=== PATIENT | female | born 1950 | race Caucasian/White ===

== ENCOUNTER → 2016-06-13 | Outpatient (REF) | payer MEDICARE, MEDICAID ==
[~2016-06-13] MED LIST: /HCTZ25TA PO; /IPRAINH INH; /TIOT18INH INH; ACET500C PO; ACET65TA OR; ALBU17IN INH; ALEN70TA39 PO; AMLO10TA OR; AMLO5TAB2 PO; ASPI1TAB PO; ASPI81TA83 OR; CEFT500T PO; DELTASONE PO; DOXY100C PO; DOXY75CA3 PO; DUONSOL INH; FOSA70TA PO; HYDR-727 PO; HYDR25TA6 OR; IBUP200T45 PO; IPRA2IN INH; IPRASOL4 INH; K-TA10TA2 PO; LIPI10TA OR; MICR12.5 PO; NICO21DI4 TD; No Historical Meds; PERF20NE2 IN; PRED20TA PO; SYMB16INH INH; SYMB80AE INH; TIOT18INH INH; TRAZ50TA2 PO; TRAZO50TA PO; TYLE325T5 PO; VENTAER INH; VITA100037 PO; VITA50003 PO; VITAMIN D2 PO; ZITH250T PO
[2016-06-13 12:37] LABS: ALBUMIN 3.6 GM/DL (3.2-5.2); ALKALINE PHOSPHATASE 125 U/L (45-117); ALT/SGPT 23 U/L (12-78); ANION GAP 8 MEQ/L (8-16); AST/SGOT 11 U/L (15-37); BILIRUBIN,TOTAL 0.3 MG/DL (0.2-1.0); BLOOD UREA NITROGEN 14 MG/DL (7-18); CALCIUM LEVEL 9.1 MG/DL (8.8-10.2); CARBON DIOXIDE LEVEL 33 MEQ/L (21-32); CHLORIDE LEVEL 101 MEQ/L (98-107); CREATININE FOR GFR 0.64 MG/DL (0.55-1.02); GLOMERULAR FILTRATION RATE > 60.0 (>45); GLUCOSE, FASTING 108 MG/DL (80-110); POTASSIUM SERUM 3.6 MEQ/L (3.5-5.1); SODIUM LEVEL 142 MEQ/L (136-145); TOTAL PROTEIN 6.6 GM/DL (6.4-8.2)
== END ==
LOC: M SFHCPLAZ 08:04
PROVIDERS: ATTEND Nurse Practitioner Family
DX: I10 Essential (primary) hypertension (principal); E88.81 Metabolic syndrome and other insulin resistance; E55.9 Vitamin D deficiency, unspecified

== ENCOUNTER → 2016-07-17 | Outpatient (REF) | payer MEDICARE, MEDICAID | LOC: M LAB REF 13:20 | PROVIDERS: ATTEND Internal Medicine Pulmonary Disease | DX: J34.2 Deviated nasal septum (principal) ==

== ENCOUNTER → 2016-09-14 | Outpatient (REF) | payer MEDICARE, MEDICAID ==
[~2016-09-14] MED LIST changes: +VITA1CAP40 PO; -VITA50003 PO
[2016-09-14 12:21] LABS: ALKALINE PHOSPHATASE 110 U/L (45-117); ALT/SGPT 24 U/L (12-78); ANION GAP 8 MEQ/L (8-16); AST/SGOT 9 U/L (15-37); BILIRUBIN,TOTAL 0.3 MG/DL (0.2-1.0); BLOOD UREA NITROGEN 14 MG/DL (7-18); CALCIUM LEVEL 9.5 MG/DL (8.8-10.2); CARBON DIOXIDE LEVEL 32 MEQ/L (21-32); CHLORIDE LEVEL 103 MEQ/L (98-107); CHOLESTEROL LEVEL 149 MG/DL (<200); CREATININE FOR GFR 0.63 MG/DL (0.55-1.02); GLOMERULAR FILTRATION RATE > 60.0 (>45); GLUCOSE, FASTING 106 MG/DL (80-110); POTASSIUM SERUM 3.8 MEQ/L (3.5-5.1); SODIUM LEVEL 143 MEQ/L (136-145); TRIGLYCERIDES LEVEL 139 MG/DL (<150)
[2016-09-14 12:22] LABS: ALBUMIN 3.7 GM/DL (3.2-5.2); ALBUMIN/GLOBULIN RATIO 1.19 (1.00-1.93); TOTAL PROTEIN 6.8 GM/DL (6.4-8.2)
== END ==
LOC: M SFHCPLAZ 07:53
PROVIDERS: ATTEND Nurse Practitioner Family
DX: E78.2 Mixed hyperlipidemia (principal); E88.81 Metabolic syndrome and other insulin resistance; E55.9 Vitamin D deficiency, unspecified; Z79.899 Other long term (current) drug therapy

== ENCOUNTER → 2016-10-25 | Outpatient (REF) | payer MEDICARE, MEDICAID | LOC: M SFHCPLAZ 11:19 | PROVIDERS: ATTEND Nurse Practitioner Family | DX: R35.0 Frequency of micturition (principal); M25.473 Effusion, unspecified ankle; J43.1 Panlobular emphysema | CPT/HCPCS: 81002; 87088; 87186; G0463 ==

== ENCOUNTER → 2016-11-01 | Outpatient (REF) | payer MEDICARE, MEDICAID ==
[2016-11-01 14:47] LABS: ANION GAP 11 MEQ/L (8-16); BLOOD UREA NITROGEN 12 MG/DL (7-18); CALCIUM LEVEL 9.5 MG/DL (8.8-10.2); CARBON DIOXIDE LEVEL 32 MEQ/L (21-32); CHLORIDE LEVEL 98 MEQ/L (98-107); CREATININE FOR GFR 0.67 MG/DL (0.55-1.02); GLOMERULAR FILTRATION RATE > 60.0 (>45); GLUCOSE, FASTING 82 MG/DL (80-110); POTASSIUM SERUM 3.6 MEQ/L (3.5-5.1); SODIUM LEVEL 141 MEQ/L (136-145)
== END ==
LOC: M SFHCPLAZ 11:31
PROVIDERS: ATTEND Nurse Practitioner Family
DX: M25.473 Effusion, unspecified ankle (principal); N39.0 Urinary tract infection, site not specified; J43.1 Panlobular emphysema
CPT/HCPCS: 80048; G0463

== ENCOUNTER → 2016-11-24 | Outpatient (CLI) | payer MEDICARE, MEDICAID ==
--- NOTE | 2016-11-24 10:07 | REPMRS ---
Patient History The patient states she had a clinical breast exam in 09/25 Patient is postmenopausal. Family history of colorectal cancer in mother at age 50 or over. Digital Woman Screen Mammo: November 24, 2016 - Exam #: [id number] Bilateral CC and MLO view(s) were taken. Technologist: Mckenzie Mitchell, Technologist Prior study comparison: August 24, 2015, digital woman screen mammo performed at [facility]. February 12, 2014, digital woman screen mammo performed at [facility]. December 18, 2012, digital woman screen mammo performed at [facility]. FINDINGS: There are scattered fibroglandular densities. There has been no change in the appearance of the mammogram from the prior studies. There is a mild amount of scattered fibroglandular density which is fairly symmetric. There is no interval development of dominant mass, architectural distortion, or clustered microcalcification suggestive of malignancy. ASSESSMENT: BI-RADS/ACR category 1 mammogram. Negative. Recommendation Routine screening mammogram in 1 year (for women over age 40). This mammogram was interpreted with the aid of an FDA-approved computer-aided dectection system. Electronically Signed By: Joseph Sanchez MD 11/24/16 1007
== END ==
LOC: M WHC 08:48
PROVIDERS: ATTEND Nurse Practitioner Family
DX: Z12.31 Encounter for screening mammogram for malignant neoplasm of breast (principal); Z78.0 Asymptomatic menopausal state

== ENCOUNTER → 2016-12-21 | Outpatient (REF) | payer MEDICARE, MEDICAID ==
[2016-12-21 14:19] LABS: ALBUMIN 3.7 GM/DL (3.2-5.2); ALBUMIN/GLOBULIN RATIO 1.09 (1.00-1.93); ALKALINE PHOSPHATASE 106 U/L (45-117); ALT/SGPT 25 U/L (12-78); ANION GAP 8 MEQ/L (8-16); AST/SGOT 8 U/L (15-37); BILIRUBIN,TOTAL 0.3 MG/DL (0.2-1.0); BLOOD UREA NITROGEN 14 MG/DL (7-18); CALCIUM LEVEL 10.1 MG/DL (8.8-10.2); CARBON DIOXIDE LEVEL 34 MEQ/L (21-32); CHLORIDE LEVEL 98 MEQ/L (98-107); CREATININE FOR GFR 0.64 MG/DL (0.55-1.02); GLOMERULAR FILTRATION RATE > 60.0 (>45); GLUCOSE, FASTING 95 MG/DL (80-110); POTASSIUM SERUM 3.7 MEQ/L (3.5-5.1); SODIUM LEVEL 140 MEQ/L (136-145); TOTAL PROTEIN 7.1 GM/DL (6.4-8.2)
== END ==
LOC: M SFHCPLAZ 07:57
PROVIDERS: ATTEND Nurse Practitioner Family
DX: I10 Essential (primary) hypertension (principal); E88.81 Metabolic syndrome and other insulin resistance; E55.9 Vitamin D deficiency, unspecified; Z79.82 Long term (current) use of aspirin; Z79.899 Other long term (current) drug therapy

== ENCOUNTER 2017-03-10 18:19 | Observation (INO) | payer MEDICARE, MEDICAID ==
[2017-03-10] MEDS: methylPREDNISolone INJ 125 MG/2 ML VIAL (J2930) IV ×2 (17:50)
[2017-03-10] MEDS: IPRATROPIUM 0.5MG/ALBUTEROL 2.5MG INH SOL UD 3ML (DUONEB)(J7620) NEB ×6 (17:51→18:05)
[2017-03-10 18:04] LABS: ABG BASE EXCESS 10.6 (-2.0-2.0); ABG HCO3 36.7 MEQ/L (22.0-26.0); ABG O2 SATURATION 95.1 % (95.0-99.0); ABG PARTIAL PRESSURE CO2 52.6 mmHg (35.0-45.0); ABG PARTIAL PRESSURE O2 70.7 mmHg (75.0-100.0); ABG STANDARD HCO3 34.4 MEQ/L (22.0-26.0); ABG TOTAL CO2 38.3 MEQ/L (23.0-31.0); ABG pH (ARTERIAL) 7.461 UNITS (7.350-7.450)
[2017-03-10 18:09] LABS: BASO # 0.1 10^3/uL (0.0-0.2); BASO % 0.6 % (0.0-1.0); EOS # 0.4 10^3/uL (0.0-0.50); EOS % 4.9 % (0.0-3.0); HEMATOCRIT 46.7 % (36.0-47.0); HEMOGLOBIN 15.7 g/dl (12.0-16.0); IMMATURE GRANULOCYTE % 0.2 % (0-0); LYMPH # 3.5 10^3/uL (1.5-4.5); LYMPH % 38.8 % (24.0-44.0); MEAN CORPUSCULAR HEMOGLOBIN 29.2 pg (27.0-33.0); MEAN CORPUSCULAR HGB CONC 33.6 g/dl (32.0-36.5); MEAN CORPUSCULAR VOLUME 86.8 fl (80.0-96.0); MONO % 11.5 % (0.0-5.0); PLATELET COUNT, AUTOMATED 303 10^3/uL (150-450); RED BLOOD COUNT 5.38 10^6/uL (4.00-5.40); RED CELL DISTRIBUTION WIDTH 13.2 % (11.5-14.5)
[2017-03-10 18:18] LABS: INR 0.97
[2017-03-10 18:25] LABS: ALBUMIN 3.6 GM/DL (3.2-5.2); ALBUMIN/GLOBULIN RATIO 0.84 (1.00-1.93); ALKALINE PHOSPHATASE 121 U/L (45-117); ALT/SGPT 30 U/L (12-78); ANION GAP 6 MEQ/L (8-16); AST/SGOT 15 U/L (7-37); BILIRUBIN,DIRECT < 0.1 MG/DL (0.0-0.2); BILIRUBIN,TOTAL 0.3 MG/DL (0.2-1.0); BLOOD UREA NITROGEN 8 MG/DL (7-18); CARBON DIOXIDE LEVEL 38 MEQ/L (21-32); CHLORIDE LEVEL 93 MEQ/L (98-107); CPK CREATINE PHOSPHOKINASE 183 U/L (26-192); CREATININE FOR GFR 0.72 MG/DL (0.55-1.02); GLOMERULAR FILTRATION RATE > 60.0 (>45); GLUCOSE, FASTING 124 MG/DL (80-110); POTASSIUM SERUM 2.9 MEQ/L (3.5-5.1); SODIUM LEVEL 137 MEQ/L (136-145); TOTAL PROTEIN 7.9 GM/DL (6.4-8.2); TROPONIN I < 0.02 NG/ML (< 0.10)
[2017-03-10 18:30] LABS: CK-MB VALUE MASS 1.3 NG/ML (0.0-3.6); MB/CK RELATIVE INDEX 0.71 (< OR =4); NT-PRO BNP 12 PG/ML (<125); THYROID STIMULATING HORMONE 0.854 uIU/ML (0.358-3.740)
[2017-03-10 19:25] LABS: LACTIC ACID SEPSIS PROTOCOL 2.1 MMOL/L (0.4-2.0)
[2017-03-10] MEDS: POTASSIUM CHLORIDE 10 MEQ SR TABLET PO ×4 (19:30→21:30)
[2017-03-10 20:44] LABS: ABG HCO3 29.3 MEQ/L (22.0-26.0); ABG O2 SATURATION 93.4 % (95.0-99.0); ABG PARTIAL PRESSURE CO2 41.5 mmHg (35.0-45.0); ABG PARTIAL PRESSURE O2 63.8 mmHg (75.0-100.0); ABG STANDARD HCO3 28.9 MEQ/L (22.0-26.0); ABG TOTAL CO2 30.5 MEQ/L (23.0-31.0); ABG pH (ARTERIAL) 7.466 UNITS (7.350-7.450)
[2017-03-10] MEDS ORDERED: IPRATROPIUM 0.5MG/ALBUTEROL 2.5MG INH SOL UD 3ML (DUONEB)(J7620) NEB ×2 (21:30)
[2017-03-11] MEDS: ASPIRIN 81 MG ENTERIC TAB PO ×4 (00:54→20:08)
[2017-03-11] MEDS: traZODone 50 MG TAB PO ×4 (00:54→20:08)
[2017-03-11] MEDS: DOCUSATE SODIUM 100 MG CAP PO ×4 (00:54→20:08)
[2017-03-11] MEDS ORDERED: IPRATROPIUM 0.5MG/ALBUTEROL 2.5MG INH SOL UD 3ML (DUONEB)(J7620) NEB ×2 (02:00)
[2017-03-11] MEDS: ACETAMINOPHEN TAB 650MG DOSE (2X325MG) PO ×4 (04:18→19:17)
[2017-03-11] MEDS: NS 1,000 ML IV ×6 (04:27→19:17)
[2017-03-11 06:50] LABS: HEMATOCRIT 44.4 % (36.0-47.0); HEMOGLOBIN 14.7 g/dl (12.0-16.0); MEAN CORPUSCULAR HEMOGLOBIN 28.4 pg (27.0-33.0); MEAN CORPUSCULAR HGB CONC 33.1 g/dl (32.0-36.5); MEAN CORPUSCULAR VOLUME 85.7 fl (80.0-96.0); PLATELET COUNT, AUTOMATED 293 10^3/uL (150-450); RED BLOOD COUNT 5.18 10^6/uL (4.00-5.40); RED CELL DISTRIBUTION WIDTH 13.1 % (11.5-14.5); WHITE BLOOD COUNT 3.8 10^3/uL (4.0-10.0)
[2017-03-11 07:14] LABS: ANION GAP 10 MEQ/L (8-16); BLOOD UREA NITROGEN 12 MG/DL (7-18); CALCIUM LEVEL 8.8 MG/DL (8.8-10.2); CARBON DIOXIDE LEVEL 32 MEQ/L (21-32); CHLORIDE LEVEL 97 MEQ/L (98-107); CREATININE FOR GFR 0.83 MG/DL (0.55-1.02); GLOMERULAR FILTRATION RATE > 60.0 (>45); GLUCOSE, FASTING 165 MG/DL (80-110); POTASSIUM SERUM 3.3 MEQ/L (3.5-5.1); SODIUM LEVEL 139 MEQ/L (136-145)
[2017-03-11] MEDS: ADVAIR HFA 230/21MCG INHALER INH ×4 (08:24→20:33)
[2017-03-11] MEDS: TIOTROPIUM INHALER/CAPSULE (SPIRIVA) INH ×2 (08:24)
[2017-03-11] MEDS: IPRATROPIUM 0.5MG/ALBUTEROL 2.5MG INH SOL UD 3ML (DUONEB)(J7620) NEB ×8 (08:24→20:00)
[2017-03-11 08:58] LABS: ABG BASE EXCESS 5.2 (-2.0-2.0); ABG HCO3 29.7 MEQ/L (22.0-26.0); ABG O2 SATURATION 97.6 % (95.0-99.0); ABG PARTIAL PRESSURE O2 94.2 mmHg (75.0-100.0); ABG STANDARD HCO3 29.1 MEQ/L (22.0-26.0); ABG pH (ARTERIAL) 7.457 UNITS (7.350-7.450)
[2017-03-11] MEDS ORDERED: predniSONE 20 MG TAB PO ×2 (09:00)
[2017-03-11] MEDS ORDERED: AZITHROMYCIN 250 MG TAB PO ×2 (09:00)
[2017-03-11 09:34] LABS: LACTIC ACID SEPSIS PROTOCOL 1.7 MMOL/L (0.4-2.0)
[2017-03-11] MEDS: methylPREDNISolone INJ 125 MG/2 ML VIAL (J2930) IV ×6 (10:01→20:09)
[2017-03-11] MEDS: hydroCHLOROthiazide 25 MG TAB PO ×2 (10:02)
[2017-03-11] MEDS: POTASSIUM CHLORIDE 10 MEQ SR TABLET PO ×2 (10:02)
[2017-03-11] MEDS: ATORVASTATIN 10 MG TAB PO ×2 (10:03)
[2017-03-11] MEDS: amLODIPine 5 MG TAB PO ×2 (10:03)
[2017-03-11] MEDS: ENOXAPARIN 40 MG/0.4 ML SYRINGE (J1650) SC ×2 (10:03)
[2017-03-11 20:07] LABS: POTASSIUM SERUM 3.6 MEQ/L (3.5-5.1)
[2017-03-12] MEDS: NS 1,000 ML IV ×8 (02:37→21:16)
[2017-03-12] MEDS: methylPREDNISolone INJ 125 MG/2 ML VIAL (J2930) IV ×8 (02:38→21:16)
[2017-03-12] MEDS: IPRATROPIUM 0.5MG/ALBUTEROL 2.5MG INH SOL UD 3ML (DUONEB)(J7620) NEB ×14 (04:00→21:22)
[2017-03-12 07:08] LABS: HEMATOCRIT 42.7 % (36.0-47.0); MEAN CORPUSCULAR HEMOGLOBIN 28.7 pg (27.0-33.0); MEAN CORPUSCULAR HGB CONC 32.8 g/dl (32.0-36.5); MEAN CORPUSCULAR VOLUME 87.5 fl (80.0-96.0); PLATELET COUNT, AUTOMATED 291 10^3/uL (150-450); RED BLOOD COUNT 4.88 10^6/uL (4.00-5.40); RED CELL DISTRIBUTION WIDTH 13.3 % (11.5-14.5)
[2017-03-12 07:37] LABS: ANION GAP 7 MEQ/L (8-16); BLOOD UREA NITROGEN 17 MG/DL (7-18); CALCIUM LEVEL 9.2 MG/DL (8.8-10.2); CARBON DIOXIDE LEVEL 29 MEQ/L (21-32); CHLORIDE LEVEL 107 MEQ/L (98-107); CREATININE FOR GFR 0.58 MG/DL (0.55-1.02); GLOMERULAR FILTRATION RATE > 60.0 (>45); GLUCOSE, FASTING 139 MG/DL (80-110); POTASSIUM SERUM 3.4 MEQ/L (3.5-5.1); SODIUM LEVEL 143 MEQ/L (136-145)
[2017-03-12] MEDS: hydroCHLOROthiazide 25 MG TAB PO ×2 (09:01)
[2017-03-12] MEDS: ATORVASTATIN 10 MG TAB PO ×2 (09:01)
[2017-03-12] MEDS: amLODIPine 5 MG TAB PO ×2 (09:02)
[2017-03-12] MEDS: ENOXAPARIN 40 MG/0.4 ML SYRINGE (J1650) SC ×2 (09:02)
[2017-03-12] MEDS: TIOTROPIUM INHALER/CAPSULE (SPIRIVA) INH ×2 (09:13)
[2017-03-12] MEDS: ADVAIR HFA 230/21MCG INHALER INH ×4 (09:14→21:22)
[2017-03-12] MEDS: traZODone 50 MG TAB PO ×2 (21:16)
[2017-03-12] MEDS: ASPIRIN 81 MG ENTERIC TAB PO ×2 (21:16)
[2017-03-12] MEDS: DOCUSATE SODIUM 100 MG CAP PO ×2 (21:16)
[2017-03-13] MEDS: IPRATROPIUM 0.5MG/ALBUTEROL 2.5MG INH SOL UD 3ML (DUONEB)(J7620) NEB ×8 (00:34→11:56)
[2017-03-13] MEDS: ACETAMINOPHEN TAB 650MG DOSE (2X325MG) PO ×2 (01:38)
[2017-03-13] MEDS: methylPREDNISolone INJ 125 MG/2 ML VIAL (J2930) IV ×4 (03:38→10:13)
[2017-03-13 07:45] LABS: HEMATOCRIT 40.8 % (36.0-47.0); HEMOGLOBIN 13.7 g/dl (12.0-16.0); MEAN CORPUSCULAR HGB CONC 33.6 g/dl (32.0-36.5); MEAN CORPUSCULAR VOLUME 86.4 fl (80.0-96.0); PLATELET COUNT, AUTOMATED 282 10^3/uL (150-450); RED BLOOD COUNT 4.72 10^6/uL (4.00-5.40); RED CELL DISTRIBUTION WIDTH 13.4 % (11.5-14.5); WHITE BLOOD COUNT 13.9 10^3/uL (4.0-10.0)
[2017-03-13 07:59] LABS: ANION GAP 10 MEQ/L (8-16); BLOOD UREA NITROGEN 17 MG/DL (7-18); CALCIUM LEVEL 9.2 MG/DL (8.8-10.2); CARBON DIOXIDE LEVEL 28 MEQ/L (21-32); CHLORIDE LEVEL 103 MEQ/L (98-107); CREATININE FOR GFR 0.68 MG/DL (0.55-1.02); GLOMERULAR FILTRATION RATE > 60.0 (>45); GLUCOSE, FASTING 191 MG/DL (80-110); POTASSIUM SERUM 3.1 MEQ/L (3.5-5.1); SODIUM LEVEL 141 MEQ/L (136-145)
[2017-03-13] MEDS: TIOTROPIUM INHALER/CAPSULE (SPIRIVA) INH ×2 (08:33)
[2017-03-13] MEDS: ADVAIR HFA 230/21MCG INHALER INH ×2 (08:33)
[2017-03-13] MEDS: amLODIPine 5 MG TAB PO ×2 (10:11)
[2017-03-13] MEDS: hydroCHLOROthiazide 25 MG TAB PO ×2 (10:11)
[2017-03-13] MEDS: ATORVASTATIN 10 MG TAB PO ×2 (10:12)
[2017-03-13] MEDS: POTASSIUM CHLORIDE 10 MEQ SR TABLET PO ×2 (10:12)
[2017-03-13] MEDS: ENOXAPARIN 40 MG/0.4 ML SYRINGE (J1650) SC ×2 (10:13)
[2017-03-13] MEDS: NS 1,000 ML IV ×4 (12:12→12:13)
== END 2017-03-13 14:00 | disposition home or self-care (01) ==
LOC: M MS5PR 03-11 00:48 → M ED 18:19 → M ED INP 21:48
PROVIDERS: Internal Medicine
DX: J44.1 Chronic obstructive pulmonary disease with (acute) exacerbation (principal); E87.6 Hypokalemia; B34.2 Coronavirus infection, unspecified; I10 Essential (primary) hypertension; J96.11 Chronic respiratory failure with hypoxia; E78.5 Hyperlipidemia, unspecified; K57.30 Diverticulosis of large intestine without perforation or abscess without bleeding; M81.0 Age-related osteoporosis without current pathological fracture; E88.81 Metabolic syndrome and other insulin resistance; Z87.891 Personal history of nicotine dependence; Z99.81 Dependence on supplemental oxygen; Z79.82 Long term (current) use of aspirin; Z79.899 Other long term (current) drug therapy; Z79.51 Long term (current) use of inhaled steroids
CPT/HCPCS: 96376

== ENCOUNTER → 2017-03-20 | Outpatient (REF) | payer MEDICARE, MEDICAID ==
[2017-03-20 13:40] LABS: BASO % 0.3 % (0.0-1.0); EOS # 0.3 10^3/uL (0.0-0.50); EOS % 2.2 % (0.0-3.0); HEMATOCRIT 46.5 % (36.0-47.0); HEMOGLOBIN 15.5 g/dl (12.0-16.0); IMMATURE GRANULOCYTE # 0.2 10^3/uL (0-0); IMMATURE GRANULOCYTE % 1.2 % (0-0); LYMPH # 3.5 10^3/uL (1.5-4.5); LYMPH % 24.9 % (24.0-44.0); MEAN CORPUSCULAR HEMOGLOBIN 29.2 pg (27.0-33.0); MEAN CORPUSCULAR HGB CONC 33.3 g/dl (32.0-36.5); MEAN CORPUSCULAR VOLUME 87.6 fl (80.0-96.0); MONO # 1.3 10^3/uL (0.0-0.8); MONO % 9.4 % (0.0-5.0); NEUTROPHILS # 8.8 10^3/uL (1.8-7.7); PLATELET COUNT, AUTOMATED 334 10^3/uL (150-450); RED BLOOD COUNT 5.31 10^6/uL (4.00-5.40); RED CELL DISTRIBUTION WIDTH 13.3 % (11.5-14.5); WHITE BLOOD COUNT 14.2 10^3/uL (4.0-10.0)
[2017-03-20 14:08] LABS: ANION GAP 6 MEQ/L (8-16); BLOOD UREA NITROGEN 14 MG/DL (7-18); CALCIUM LEVEL 9.7 MG/DL (8.8-10.2); CARBON DIOXIDE LEVEL 36 MEQ/L (21-32); CHLORIDE LEVEL 96 MEQ/L (98-107); CREATININE FOR GFR 0.63 MG/DL (0.55-1.02); GLOMERULAR FILTRATION RATE > 60.0 (>45); GLUCOSE, FASTING 83 MG/DL (80-110); POTASSIUM SERUM 3.7 MEQ/L (3.5-5.1); SODIUM LEVEL 138 MEQ/L (136-145)
[2017-03-20 14:13] LABS: ESTIMATED AVERAGE GLUCOSE 134 MG/DL (60-110); HEMOGLOBIN A1c 6.3 %
== END ==
LOC: M SFHCPLAZ 10:44
DX: R73.03 Prediabetes (principal); I10 Essential (primary) hypertension; J44.1 Chronic obstructive pulmonary disease with (acute) exacerbation
CPT/HCPCS: 83036

== ENCOUNTER 2017-05-04 16:00 | Inpatient (IN) | payer MEDICARE, MEDICAID ==
[2017-05-04] MEDS: IPRATROPIUM 0.5MG/ALBUTEROL 2.5MG INH SOL UD 3ML (DUONEB)(J7620) NEB ×5 (16:35→23:22)
[2017-05-04 16:38] LABS: BASO # 0.1 10^3/uL (0.0-0.2); BASO % 0.4 % (0.0-1.0); EOS % 0.2 % (0.0-3.0); HEMATOCRIT 47.6 % (36.0-47.0); HEMOGLOBIN 15.8 g/dl (12.0-16.0); IMMATURE GRANULOCYTE % 0.5 % (0-3.0); LYMPH # 1.1 10^3/uL (1.5-4.5); LYMPH % 6.5 % (24.0-44.0); MEAN CORPUSCULAR HEMOGLOBIN 29.6 pg (27.0-33.0); MEAN CORPUSCULAR HGB CONC 33.2 g/dl (32.0-36.5); MEAN CORPUSCULAR VOLUME 89.1 fl (80.0-96.0); MONO # 0.6 10^3/uL (0.0-0.8); MONO % 3.7 % (0.0-5.0); NEUTROPHILS # 14.9 10^3/uL (1.8-7.7); NEUTROPHILS % 88.7 % (36.0-66.0); PLATELET COUNT, AUTOMATED 330 10^3/uL (150-450); RED BLOOD COUNT 5.34 10^6/uL (4.00-5.40); RED CELL DISTRIBUTION WIDTH 13.2 % (11.5-14.5); WHITE BLOOD COUNT 16.7 10^3/uL (4.0-10.0)
[2017-05-04 16:39] LABS: ABG BASE EXCESS 2.4 (-2.0-2.0); ABG HCO3 28.5 MEQ/L (22.0-26.0); ABG O2 SATURATION 92.8 % (95.0-99.0); ABG PARTIAL PRESSURE CO2 48.8 mmHg (35.0-45.0); ABG PARTIAL PRESSURE O2 63.7 mmHg (75.0-100.0); ABG STANDARD HCO3 26.5 MEQ/L (22.0-26.0); ABG pH (ARTERIAL) 7.384 UNITS (7.350-7.450)
[2017-05-04 17:03] LABS: ANION GAP 9 MEQ/L (8-16); BLOOD UREA NITROGEN 11 MG/DL (7-18); CALCIUM LEVEL 9.4 MG/DL (8.8-10.2); CARBON DIOXIDE LEVEL 32 MEQ/L (21-32); CHLORIDE LEVEL 100 MEQ/L (98-107); CPK CREATINE PHOSPHOKINASE 144 U/L (26-192); CREATININE FOR GFR 0.74 MG/DL (0.55-1.30); GLOMERULAR FILTRATION RATE > 60.0 (>45); GLUCOSE, FASTING 136 MG/DL (70-100); POTASSIUM SERUM 3.8 MEQ/L (3.5-5.1); SODIUM LEVEL 141 MEQ/L (136-145); TROPONIN I 0.05 NG/ML (< 0.10)
[2017-05-04 17:08] LABS: CK-MB VALUE MASS 2.5 NG/ML (0.0-3.6); MB/CK RELATIVE INDEX 1.73 (< OR =4); NT-PRO BNP 50 PG/ML (<125); THYROID STIMULATING HORMONE 0.438 uIU/ML (0.358-3.740)
[2017-05-04 17:14] LABS: LACTIC ACID SEPSIS PROTOCOL 2.7 MMOL/L (0.4-2.0)
[2017-05-04] MEDS ORDERED: ONDANSETRON 4MG/2ML VIAL (J2405) IV (19:15)
[2017-05-04] MEDS: SYMBICORT 160/4.5MCG INHALER 6GM INH (20:35)
[2017-05-04] MEDS: ASPIRIN 81 MG ENTERIC TAB PO (20:55)
[2017-05-04] MEDS: guaiFENesin ER 600 MG TAB PO (20:55)
[2017-05-04] MEDS: DOCUSATE SODIUM 100 MG CAP PO (20:55)
[2017-05-04] MEDS: methylPREDNISolone INJ 125 MG/2 ML VIAL (J2930) IV (20:55)
[2017-05-04] MEDS: NS 500 ML IV (21:58)
[2017-05-05] MEDS: ACETAMINOPHEN TAB 650MG DOSE (2X325MG) PO (01:17)
[2017-05-05] MEDS: IPRATROPIUM 0.5MG/ALBUTEROL 2.5MG INH SOL UD 3ML (DUONEB)(J7620) NEB ×7 (02:04→23:50)
[2017-05-05 03:06] LABS: LACTIC ACID SEPSIS PROTOCOL 4.2 MMOL/L (0.4-2.0)
[2017-05-05] MEDS: NS 500 ML IV (04:15)
[2017-05-05] MEDS: methylPREDNISolone INJ 125 MG/2 ML VIAL (J2930) IV ×3 (04:15→20:22)
[2017-05-05] MEDS: LevoFLOXacin IV 500 MG in APPROPRIATE DILUENT 1 EA IV (04:15)
[2017-05-05] MEDS: NS 1,000 ML IV ×2 (04:16→12:15)
[2017-05-05 06:45] LABS: HEMATOCRIT 46.2 % (36.0-47.0); HEMOGLOBIN 15.2 g/dl (12.0-16.0); MEAN CORPUSCULAR HGB CONC 32.9 g/dl (32.0-36.5); PLATELET COUNT, AUTOMATED 339 10^3/uL (150-450); RED BLOOD COUNT 5.25 10^6/uL (4.00-5.40); RED CELL DISTRIBUTION WIDTH 13.2 % (11.5-14.5); WHITE BLOOD COUNT 9.4 10^3/uL (4.0-10.0)
[2017-05-05 07:04] LABS: ALBUMIN 3.8 GM/DL (3.2-5.2); ALBUMIN/GLOBULIN RATIO 0.88 (1.00-1.93); ALKALINE PHOSPHATASE 108 U/L (45-117); ALT/SGPT 32 U/L (12-78); ANION GAP 6 MEQ/L (8-16); AST/SGOT 18 U/L (7-37); BILIRUBIN,TOTAL 0.4 MG/DL (0.2-1.0); BLOOD UREA NITROGEN 13 MG/DL (7-18); CALCIUM LEVEL 9.2 MG/DL (8.8-10.2); CARBON DIOXIDE LEVEL 33 MEQ/L (21-32); CHLORIDE LEVEL 100 MEQ/L (98-107); CREATININE FOR GFR 0.74 MG/DL (0.55-1.30); GLOMERULAR FILTRATION RATE > 60.0 (>45); GLUCOSE, FASTING 172 MG/DL (70-100); MAGNESIUM LEVEL 2.2 MG/DL (1.8-2.4); POTASSIUM SERUM 3.5 MEQ/L (3.5-5.1); SODIUM LEVEL 139 MEQ/L (136-145); TOTAL PROTEIN 8.1 GM/DL (6.4-8.2)
[2017-05-05] MEDS: SYMBICORT 160/4.5MCG INHALER 6GM INH ×2 (07:58→21:15)
[2017-05-05] MEDS ORDERED: hydroCHLOROthiazide 25 MG TAB PO (09:00)
[2017-05-05] MEDS: guaiFENesin ER 600 MG TAB PO ×2 (09:20→20:22)
[2017-05-05] MEDS: ATORVASTATIN 10 MG TAB PO (09:20)
[2017-05-05] MEDS: ENOXAPARIN 40 MG/0.4 ML SYRINGE (J1650) SC (09:21)
[2017-05-05] MEDS: amLODIPine 5 MG TAB PO (09:23)
[2017-05-05 12:19] LABS: LACTIC ACID SEPSIS PROTOCOL 3.2 MMOL/L (0.4-2.0)
[2017-05-05] MEDS: ALBUTEROL SULFATE 2.5 MG/0.5 ML INH NEB SOLN NEB (17:45)
[2017-05-05] MEDS: ALPRAZolam 0.25 MG TAB PO (20:22)
[2017-05-05] MEDS: DOCUSATE SODIUM 100 MG CAP PO (20:22)
[2017-05-05] MEDS: ASPIRIN 81 MG ENTERIC TAB PO (20:22)
[2017-05-06] MEDS: FUROSEMIDE 40 MG/4 ML VIAL (J1940) IV (00:31)
[2017-05-06] MEDS: ACETAMINOPHEN TAB 650MG DOSE (2X325MG) PO ×3 (02:42→23:49)
[2017-05-06] MEDS: IPRATROPIUM 0.5MG/ALBUTEROL 2.5MG INH SOL UD 3ML (DUONEB)(J7620) NEB ×6 (04:00→23:22)
[2017-05-06] MEDS: methylPREDNISolone INJ 125 MG/2 ML VIAL (J2930) IV ×3 (05:18→21:33)
[2017-05-06 06:06] LABS: HEMATOCRIT 46.4 % (36.0-47.0); HEMOGLOBIN 15.2 g/dl (12.0-16.0); MEAN CORPUSCULAR HEMOGLOBIN 29.1 pg (27.0-33.0); MEAN CORPUSCULAR HGB CONC 32.8 g/dl (32.0-36.5); MEAN CORPUSCULAR VOLUME 88.9 fl (80.0-96.0); PLATELET COUNT, AUTOMATED 370 10^3/uL (150-450); RED BLOOD COUNT 5.22 10^6/uL (4.00-5.40); RED CELL DISTRIBUTION WIDTH 13.4 % (11.5-14.5); WHITE BLOOD COUNT 17.3 10^3/uL (4.0-10.0)
[2017-05-06 06:28] LABS: ALBUMIN 3.8 GM/DL (3.2-5.2); ALBUMIN/GLOBULIN RATIO 0.97 (1.00-1.93); ALKALINE PHOSPHATASE 99 U/L (45-117); ALT/SGPT 40 U/L (12-78); ANION GAP 8 MEQ/L (8-16); AST/SGOT 43 U/L (7-37); BILIRUBIN,TOTAL 0.4 MG/DL (0.2-1.0); BLOOD UREA NITROGEN 19 MG/DL (7-18); CALCIUM LEVEL 8.7 MG/DL (8.8-10.2); CARBON DIOXIDE LEVEL 32 MEQ/L (21-32); CHLORIDE LEVEL 101 MEQ/L (98-107); CREATININE FOR GFR 0.75 MG/DL (0.55-1.30); GLOMERULAR FILTRATION RATE > 60.0 (>45); GLUCOSE, FASTING 145 MG/DL (70-100); MAGNESIUM LEVEL 2.3 MG/DL (1.8-2.4); POTASSIUM SERUM 3.4 MEQ/L (3.5-5.1); SODIUM LEVEL 141 MEQ/L (136-145); TOTAL PROTEIN 7.7 GM/DL (6.4-8.2)
[2017-05-06] MEDS: SYMBICORT 160/4.5MCG INHALER 6GM INH ×2 (09:02→20:34)
[2017-05-06] MEDS: guaiFENesin ER 600 MG TAB PO ×2 (09:28→21:33)
[2017-05-06] MEDS: ATORVASTATIN 10 MG TAB PO (09:28)
[2017-05-06] MEDS: ENOXAPARIN 40 MG/0.4 ML SYRINGE (J1650) SC (09:28)
[2017-05-06] MEDS: ALPRAZolam 0.25 MG TAB PO ×2 (09:29→21:39)
[2017-05-06] MEDS: amLODIPine 5 MG TAB PO (09:31)
[2017-05-06] MEDS: POTASSIUM CHLORIDE 10 MEQ SR TABLET PO ×2 (14:03→21:34)
[2017-05-06] MEDS: ASPIRIN 81 MG ENTERIC TAB PO (21:33)
[2017-05-06] MEDS: DOCUSATE SODIUM 100 MG CAP PO (21:33)
[2017-05-07] MEDS: IPRATROPIUM 0.5MG/ALBUTEROL 2.5MG INH SOL UD 3ML (DUONEB)(J7620) NEB ×4 (02:34→21:36)
[2017-05-07] MEDS: ACETAMINOPHEN TAB 650MG DOSE (2X325MG) PO (03:46)
[2017-05-07] MEDS: methylPREDNISolone INJ 125 MG/2 ML VIAL (J2930) IV ×3 (05:54→20:06)
[2017-05-07 06:08] LABS: HEMATOCRIT 44.7 % (36.0-47.0); HEMOGLOBIN 14.5 g/dl (12.0-16.0); MEAN CORPUSCULAR HEMOGLOBIN 28.9 pg (27.0-33.0); MEAN CORPUSCULAR HGB CONC 32.4 g/dl (32.0-36.5); PLATELET COUNT, AUTOMATED 325 10^3/uL (150-450); RED BLOOD COUNT 5.02 10^6/uL (4.00-5.40); RED CELL DISTRIBUTION WIDTH 13.4 % (11.5-14.5); WHITE BLOOD COUNT 11.7 10^3/uL (4.0-10.0)
[2017-05-07 06:33] LABS: ALBUMIN 3.4 GM/DL (3.2-5.2); ALKALINE PHOSPHATASE 82 U/L (45-117); ALT/SGPT 37 U/L (12-78); ANION GAP 6 MEQ/L (8-16); AST/SGOT 24 U/L (7-37); BILIRUBIN,TOTAL 0.3 MG/DL (0.2-1.0); BLOOD UREA NITROGEN 28 MG/DL (7-18); CALCIUM LEVEL 8.6 MG/DL (8.8-10.2); CARBON DIOXIDE LEVEL 35 MEQ/L (21-32); CHLORIDE LEVEL 102 MEQ/L (98-107); CREATININE FOR GFR 0.76 MG/DL (0.55-1.30); GLOMERULAR FILTRATION RATE > 60.0 (>45); GLUCOSE, FASTING 186 MG/DL (70-100); MAGNESIUM LEVEL 2.8 MG/DL (1.8-2.4); POTASSIUM SERUM 3.6 MEQ/L (3.5-5.1); SODIUM LEVEL 143 MEQ/L (136-145); TOTAL PROTEIN 6.8 GM/DL (6.4-8.2)
[2017-05-07] MEDS: amLODIPine 5 MG TAB PO (09:14)
[2017-05-07] MEDS: ATORVASTATIN 10 MG TAB PO (09:14)
[2017-05-07] MEDS: POTASSIUM CHLORIDE 10 MEQ SR TABLET PO ×2 (09:15→20:05)
[2017-05-07] MEDS: ENOXAPARIN 40 MG/0.4 ML SYRINGE (J1650) SC (09:15)
[2017-05-07] MEDS: guaiFENesin ER 600 MG TAB PO ×2 (09:15→20:06)
[2017-05-07] MEDS: SYMBICORT 160/4.5MCG INHALER 6GM INH ×2 (09:58→21:36)
[2017-05-07] MEDS: MOM 30ML SUSPENSION UDC PO (12:32)
[2017-05-07] MEDS: DOCUSATE SODIUM 100 MG CAP PO (20:05)
[2017-05-07] MEDS: ASPIRIN 81 MG ENTERIC TAB PO (20:05)
[2017-05-07] MEDS: traZODone 50 MG TAB PO (22:08)
[2017-05-08] MEDS: IPRATROPIUM 0.5MG/ALBUTEROL 2.5MG INH SOL UD 3ML (DUONEB)(J7620) NEB ×6 (00:06→22:01)
[2017-05-08] MEDS: methylPREDNISolone INJ 125 MG/2 ML VIAL (J2930) IV (05:35)
[2017-05-08 06:50] LABS: HEMATOCRIT 43.4 % (36.0-47.0); MEAN CORPUSCULAR HGB CONC 32.3 g/dl (32.0-36.5); PLATELET COUNT, AUTOMATED 319 10^3/uL (150-450); RED BLOOD COUNT 4.82 10^6/uL (4.00-5.40); RED CELL DISTRIBUTION WIDTH 13.4 % (11.5-14.5); WHITE BLOOD COUNT 10.8 10^3/uL (4.0-10.0)
[2017-05-08 07:16] LABS: ALBUMIN 3.3 GM/DL (3.2-5.2); ALBUMIN/GLOBULIN RATIO 1.03 (1.00-1.93); ALKALINE PHOSPHATASE 77 U/L (45-117); ALT/SGPT 37 U/L (12-78); ANION GAP 7 MEQ/L (8-16); AST/SGOT 15 U/L (7-37); BILIRUBIN,TOTAL 0.3 MG/DL (0.2-1.0); BLOOD UREA NITROGEN 34 MG/DL (7-18); CALCIUM LEVEL 8.6 MG/DL (8.8-10.2); CARBON DIOXIDE LEVEL 34 MEQ/L (21-32); CHLORIDE LEVEL 102 MEQ/L (98-107); CREATININE FOR GFR 0.71 MG/DL (0.55-1.30); GLOMERULAR FILTRATION RATE > 60.0 (>45); GLUCOSE, FASTING 193 MG/DL (70-100); MAGNESIUM LEVEL 2.8 MG/DL (1.8-2.4); POTASSIUM SERUM 3.5 MEQ/L (3.5-5.1); SODIUM LEVEL 143 MEQ/L (136-145); TOTAL PROTEIN 6.5 GM/DL (6.4-8.2)
[2017-05-08] MEDS: SYMBICORT 160/4.5MCG INHALER 6GM INH ×2 (08:15→22:01)
[2017-05-08] MEDS: ATORVASTATIN 10 MG TAB PO (09:39)
[2017-05-08] MEDS: ENOXAPARIN 40 MG/0.4 ML SYRINGE (J1650) SC (09:39)
[2017-05-08] MEDS: POTASSIUM CHLORIDE 10 MEQ SR TABLET PO ×2 (09:39→21:45)
[2017-05-08] MEDS: amLODIPine 5 MG TAB PO (09:39)
[2017-05-08] MEDS: guaiFENesin ER 600 MG TAB PO ×2 (09:40→21:44)
[2017-05-08] MEDS: DOCUSATE SODIUM 100 MG CAP PO (21:44)
[2017-05-08] MEDS: ASPIRIN 81 MG ENTERIC TAB PO (21:44)
[2017-05-08] MEDS: methylPREDNISolone INJ 40 MG/1 ML VIAL (J2920) IV (21:45)
[2017-05-09] MEDS: traZODone 50 MG TAB PO (01:52)
[2017-05-09] MEDS: IPRATROPIUM 0.5MG/ALBUTEROL 2.5MG INH SOL UD 3ML (DUONEB)(J7620) NEB ×3 (04:00→08:00)
[2017-05-09 07:03] LABS: HEMATOCRIT 43.2 % (36.0-47.0); HEMOGLOBIN 13.9 g/dl (12.0-16.0); MEAN CORPUSCULAR HEMOGLOBIN 29.2 pg (27.0-33.0); MEAN CORPUSCULAR HGB CONC 32.2 g/dl (32.0-36.5); MEAN CORPUSCULAR VOLUME 90.8 fl (80.0-96.0); PLATELET COUNT, AUTOMATED 306 10^3/uL (150-450); RED BLOOD COUNT 4.76 10^6/uL (4.00-5.40); RED CELL DISTRIBUTION WIDTH 13.3 % (11.5-14.5); WHITE BLOOD COUNT 10.3 10^3/uL (4.0-10.0)
[2017-05-09 07:21] LABS: ALBUMIN 3.2 GM/DL (3.2-5.2); ALKALINE PHOSPHATASE 72 U/L (45-117); ALT/SGPT 42 U/L (12-78); ANION GAP 3 MEQ/L (8-16); AST/SGOT 16 U/L (7-37); BILIRUBIN,TOTAL 0.3 MG/DL (0.2-1.0); BLOOD UREA NITROGEN 31 MG/DL (7-18); CALCIUM LEVEL 8.6 MG/DL (8.8-10.2); CARBON DIOXIDE LEVEL 36 MEQ/L (21-32); CHLORIDE LEVEL 103 MEQ/L (98-107); CREATININE FOR GFR 0.63 MG/DL (0.55-1.30); GLOMERULAR FILTRATION RATE > 60.0 (>45); GLUCOSE, FASTING 148 MG/DL (70-100); MAGNESIUM LEVEL 2.4 MG/DL (1.8-2.4); POTASSIUM SERUM 4.3 MEQ/L (3.5-5.1); SODIUM LEVEL 142 MEQ/L (136-145); TOTAL PROTEIN 6.1 GM/DL (6.4-8.2)
[2017-05-09] MEDS: SYMBICORT 160/4.5MCG INHALER 6GM INH (08:36)
[2017-05-09] MEDS: amLODIPine 5 MG TAB PO (09:38)
[2017-05-09] MEDS: methylPREDNISolone INJ 40 MG/1 ML VIAL (J2920) IV (09:38)
[2017-05-09] MEDS: ATORVASTATIN 10 MG TAB PO (09:39)
[2017-05-09] MEDS: POTASSIUM CHLORIDE 10 MEQ SR TABLET PO (09:39)
[2017-05-09] MEDS: guaiFENesin ER 600 MG TAB PO (09:39)
[2017-05-09] MEDS: ENOXAPARIN 40 MG/0.4 ML SYRINGE (J1650) SC (09:39)
== END 2017-05-09 11:54 | disposition home or self-care (01) | DRG 191 ==
LOC: M MSPAV 05-05 14:54 → M ED 16:00 → M ED INP 19:03
DX: J44.1 Chronic obstructive pulmonary disease with (acute) exacerbation (principal); J96.11 Chronic respiratory failure with hypoxia; I50.32 Chronic diastolic (congestive) heart failure; B97.89 Other viral agents as the cause of diseases classified elsewhere; Z79.899 Other long term (current) drug therapy; M81.0 Age-related osteoporosis without current pathological fracture; E78.5 Hyperlipidemia, unspecified; I11.0 Hypertensive heart disease with heart failure; E66.9 Obesity, unspecified; Z79.82 Long term (current) use of aspirin; Z79.52 Long term (current) use of systemic steroids; Z87.891 Personal history of nicotine dependence; K59.00 Constipation, unspecified

== ENCOUNTER → 2018-01-02 | Outpatient (REF) | payer MEDICARE, MEDICAID ==
[2018-01-02 12:00] LABS: ESTIMATED AVERAGE GLUCOSE 120 MG/DL (60-110); HEMOGLOBIN A1c 5.8 %
[2018-01-02 12:06] LABS: ALBUMIN 3.9 GM/DL (3.2-5.2); ALBUMIN/GLOBULIN RATIO 1.22 (1.00-1.93); ALKALINE PHOSPHATASE 103 U/L (45-117); ALT/SGPT 20 U/L (12-78); ANION GAP 7 MEQ/L (8-16); AST/SGOT 11 U/L (7-37); BILIRUBIN,TOTAL 0.3 MG/DL (0.2-1.0); BLOOD UREA NITROGEN 17 MG/DL (7-18); CALCIUM LEVEL 9.5 MG/DL (8.8-10.2); CARBON DIOXIDE LEVEL 30 MEQ/L (21-32); CHLORIDE LEVEL 104 MEQ/L (98-107); CREATININE FOR GFR 0.62 MG/DL (0.55-1.30); GLOMERULAR FILTRATION RATE > 60.0 (>45); GLUCOSE, FASTING 88 MG/DL (70-100); POTASSIUM SERUM 4.2 MEQ/L (3.5-5.1); SODIUM LEVEL 141 MEQ/L (136-145); TOTAL PROTEIN 7.1 GM/DL (6.4-8.2)
[2018-01-02 12:11] LABS: TOTAL 25(OH) VITAMIN D 20.5 NG/ML (30.0-100.0)
== END ==
LOC: M SFHCPLAZ 08:25
DX: I10 Essential (primary) hypertension (principal); R73.03 Prediabetes; E55.9 Vitamin D deficiency, unspecified; Z79.899 Other long term (current) drug therapy
CPT/HCPCS: 80053

== ENCOUNTER → 2018-01-09 | Outpatient (CLI) | payer MEDICARE, MEDICAID | LOC: M WHC 07:51 | DX: Z12.31 Encounter for screening mammogram for malignant neoplasm of breast (principal); Z80.0 Family history of malignant neoplasm of digestive organs | CPT/HCPCS: 77067 ==

== ENCOUNTER → 2018-04-02 | Outpatient (REF) | payer MEDICARE, MEDICAID ==
[~2018-04-02] MED LIST changes: +ADVA230A INH; +ALEN70TA57 PO; -AMLO5TAB2 PO; +AMLO5TAB6 PO; +ATOR1TAB19 PO; +AZIT-12 PO; +CEFD1CAP8 PO; +CEFD300CAP PO; +DOCQ100C5 PO; +HYDR25TAB PO; +INCR1INH INH; +IPRA0.00 INH; -IPRASOL4 INH; +PRED10TA2 PO; +TRAZ-160 PO; -VITA1CAP40 PO; +VITA50005 PO
[2018-04-02 13:34] LABS: BASO # 0.1 10^3/uL (0.0-0.2); BASO % 0.7 % (0.0-1.0); EOS # 0.3 10^3/uL (0.0-0.50); EOS % 2.6 % (0.0-3.0); HEMATOCRIT 44.6 % (36.0-47.0); HEMOGLOBIN 14.5 g/dl (12.0-15.5); LYMPH % 25.4 % (24.0-44.0); MEAN CORPUSCULAR HEMOGLOBIN 28.8 pg (27.0-33.0); MEAN CORPUSCULAR HGB CONC 32.5 g/dl (32.0-36.5); MEAN CORPUSCULAR VOLUME 88.7 fl (80.0-96.0); MONO # 0.8 10^3/uL (0.0-0.8); MONO % 6.9 % (0.0-5.0); NEUTROPHILS # 7.6 10^3/uL (1.8-7.7); NEUTROPHILS % 64.1 % (36.0-66.0); PLATELET COUNT, AUTOMATED 320 10^3/uL (150-450); RED BLOOD COUNT 5.03 10^6/uL (4.00-5.40); WHITE BLOOD COUNT 11.9 10^3/uL (4.0-10.0)
[2018-04-02 13:57] LABS: BLOOD UREA NITROGEN 12 MG/DL (7-18); C REACTIVE PROTEIN QUANTITATIV 0.63 MG/DL (0.00-0.30); CALCIUM LEVEL 8.9 MG/DL (8.8-10.2); CARBON DIOXIDE LEVEL 27 MEQ/L (21-32); CHLORIDE LEVEL 104 MEQ/L (98-107); CREATININE FOR GFR 0.52 MG/DL (0.55-1.30); GLOMERULAR FILTRATION RATE > 60.0 (>45); GLUCOSE, FASTING 87 MG/DL (70-100); POTASSIUM SERUM 3.9 MEQ/L (3.5-5.1); SODIUM LEVEL 140 MEQ/L (136-145)
[2018-04-02 14:10] LABS: ERYTHROCYTE SEDIMENTATION RATE 23 mm/hr (0-30)
== END ==
LOC: M SFHCPLAZ 12:04
PROVIDERS: ATTEND Nurse Practitioner Family
DX: M71.121 Other infective bursitis, right elbow (principal); J44.9 Chronic obstructive pulmonary disease, unspecified
CPT/HCPCS: 36415; 80048; 85025; 85652; 86140; G0463

== ENCOUNTER → 2018-04-30 | Outpatient (CLI) | payer MEDICARE, MEDICAID ==
--- NOTE | 2018-04-30 15:13 | REP ---
Chest two views HISTORY: Emphysema Comparison: 06/11/2017 The lungs are hyperinflated. An increase in interstitial markings is present in the lungs consistent with chronic interstitial fibrosis. The heart is normal in size. The pulmonary vasculature is normal in appearance. The bony structure is intact. IMPRESSION: Chronic interstitial fibrosis. Electronically Signed by Janes Benites MD 04/30/2018 03:05 P
== END ==
LOC: M SMT 14:22
PROVIDERS: ATTEND Internal Medicine Pulmonary Disease
DX: J43.2 Centrilobular emphysema (principal); J84.10 Pulmonary fibrosis, unspecified

== ENCOUNTER 2018-06-05 19:47 | Inpatient (IN) | payer MEDICARE, MEDICAID ==
[~2018-06-05] VITALS: Ht 154.9 cm; Wt 75.4 kg
[2018-06-05] MEDS: ADVAIR HFA 230/21MCG INHALER INH SCH (20:00)
[2018-06-05] MEDS ORDERED: IPRATROPIUM 0.5MG/ALBUTEROL 2.5MG INH SOL UD 3ML (DUONEB)(J7620) NEB PRN (20:30)
[2018-06-05 20:41] LABS: ABG BASE EXCESS 2.6 (-2.0-2.0); ABG HCO3 25.3 MEQ/L (22.0-26.0); ABG O2 SATURATION 97.2 % (95.0-99.0); ABG PARTIAL PRESSURE CO2 33.2 mmHg (35.0-45.0); ABG STANDARD HCO3 26.8 MEQ/L (22.0-26.0); ABG TOTAL CO2 26.3 MEQ/L (23.0-31.0); ABG pH (ARTERIAL) 7.499 UNITS (7.350-7.450)
--- NOTE | 2018-06-05 20:42 | REP ---
Clinical: Cough and dyspnea. Comparison: 04/30/2018. Findings: Mediastinum and cardiac silhouette are stable. Lung aranda demonstrate chronic stable interstitial changes. Subtle superimposed atelectasis cannot be excluded. No focal consolidation. No effusion. No pneumothorax. Skeletal structures stable. Impression: Chronic stable changes. Cannot exclude subtle superimposed basilar atelectasis. Electronically Signed by Hiren Gama MD 06/05/2018 08:33 P
[2018-06-05 20:46] LABS: BASO # 0.1 10^3/uL (0.0-0.2); BASO % 0.9 % (0.0-1.0); EOS % 0.5 % (0.0-3.0); HEMATOCRIT 43.5 % (36.0-47.0); HEMOGLOBIN 14.2 g/dl (12.0-15.5); LYMPH # 0.9 10^3/uL (1.5-4.5); MEAN CORPUSCULAR HGB CONC 32.6 g/dl (32.0-36.5); MEAN CORPUSCULAR VOLUME 88.8 fl (80.0-96.0); MONO # 0.8 10^3/uL (0.0-0.8); MONO % 10.2 % (0.0-5.0); NEUTROPHILS # 5.8 10^3/uL (1.8-7.7); NEUTROPHILS % 75.6 % (36.0-66.0); WHITE BLOOD COUNT 7.6 10^3/uL (4.0-10.0)
[2018-06-05 21:04] LABS: BLOOD UREA NITROGEN 6 MG/DL (7-18); CALCIUM LEVEL 8.6 MG/DL (8.8-10.2); CARBON DIOXIDE LEVEL 30 MEQ/L (21-32); CHLORIDE LEVEL 101 MEQ/L (98-107); CREATININE FOR GFR 0.72 MG/DL (0.55-1.30); GLOMERULAR FILTRATION RATE > 60.0 (>39); GLUCOSE, FASTING 118 MG/DL (70-100); POTASSIUM SERUM 3.7 MEQ/L (3.5-5.1); SODIUM LEVEL 140 MEQ/L (136-145)
[2018-06-05 21:23] LABS: INFLUENZA A AMPLIFICATION POSITIVE (NEGATIVE); INFLUENZA B AMPLIFICATION NEGATIVE (NEGATIVE)
[2018-06-05] MEDS ORDERED: OSELTAMIVIR PHOSPHATE 75 MG CAP (TAMIFLU) PO ONE (22:30)
[2018-06-05] MEDS ORDERED: ACETAMINOPHEN TAB 650MG DOSE (2X325MG) PO ONE (22:30)
[2018-06-05] MEDS ORDERED: ACETAMINOPHEN TAB 650MG DOSE (2X325MG) PO PRN (22:45)
[2018-06-05] MEDS ORDERED: ALBUTEROL SULFATE 2.5 MG/0.5 ML INH NEB SOLN NEB PRN (22:45)
[2018-06-05] MEDS ORDERED: ONDANSETRON 4MG/2ML VIAL (J2405) IV PRN (22:45)
[2018-06-05] MEDS ORDERED: PROAAER10 INH (22:46)
[2018-06-05] MEDS ORDERED: LEVO500T3 PO (22:46)
[2018-06-05] MEDS ORDERED: ASPI81TAEC PO (22:46)
[2018-06-05] MEDS ORDERED: ACET-683 PO (22:46)
[2018-06-05] MEDS: traZODone 50 MG TAB PO SCH (23:23)
[2018-06-05] MEDS: DOCUSATE SODIUM 100 MG CAP PO SCH (23:23)
[2018-06-05] MEDS: ASPIRIN 81 MG ENTERIC TAB PO SCH (23:23)
[2018-06-06 00:40] VITALS: BP 131/79
[2018-06-06] MEDS: methylPREDNISolone INJ 40 MG/1 ML VIAL (J2920) IV SCH ×2 (01:02→13:06)
[2018-06-06] MEDS: IPRATROPIUM 0.5MG/ALBUTEROL 2.5MG INH SOL UD 3ML (DUONEB)(J7620) NEB SCH ×7 (04:00→23:12)
[2018-06-06] MEDS: HEPARIN SOD (PORCINE) 5000 UNITS/ML VIAL SC SCH ×3 (05:17→22:10)
[2018-06-06 06:00] VITALS: BP 137/75
[2018-06-06 06:54] LABS: HEMATOCRIT 42.1 % (36.0-47.0); MEAN CORPUSCULAR HEMOGLOBIN 29.1 pg (27.0-33.0); MEAN CORPUSCULAR HGB CONC 33.3 g/dl (32.0-36.5); MEAN CORPUSCULAR VOLUME 87.5 fl (80.0-96.0); PLATELET COUNT, AUTOMATED 314 10^3/uL (150-450); RED BLOOD COUNT 4.81 10^6/uL (4.00-5.40); WHITE BLOOD COUNT 5.3 10^3/uL (4.0-10.0)
--- NOTE | 2018-06-06 07:09 | HPE ---
DATE OF ADMISSION: 06/05/2018 CHIEF COMPLAINT: Cough and worsening dyspnea on exertion. HISTORY OF PRESENT ILLNESS: The patient is a 68-year-old female. She has significant past medical history of chronic respiratory failure secondary to chronic obstructive pulmonary disease (COPD) on 4 liters of nasal cannula oxygen at home, hypertension, hyperlipidemia, osteoporosis, and mood disorder not otherwise specified who presents in the emergency room with a few days of cough with yellowish productive sputum, worsening dyspnea at rest and on exertion, requiring the patient to turn her oxygen to 4.5 to 5 liters, body aches, headache, and rhinorrhea. She also endorses dry heaves. Denies vomiting. Denies any chest pain. The patient does admit to having a sick contact, she tells of a friend who was recently diagnosed with the flu. She denies any abdominal pain, constipation, diarrhea or urinary symptoms. PAST MEDICAL HISTORY: See history of present illness (HPI). PAST SURGICAL HISTORY: section, tonsillectomy, dilation and curettage (D and C). HOME MEDICATIONS: As per chart. - DuoNeb - amlodipine - aspirin - Lipitor - vitamin D - potassium chloride - prednisone - Advair - trazodone - alendronate weekly - Incruse Ellipta - Colace ALLERGIES: No listed drug allergies. SOCIAL HISTORY: Former smoker, quit several years ago. Denies alcohol or illicit drug use. FAMILY HISTORY: Noncontributory in this setting. Mother had diabetes and father with coronary artery disease. REVIEW OF SYSTEMS: A 12 point review of systems was completed, all of which were negative except those listed in the HPI. VITALS ON ADMISSION: T-max 100.9. Pulse 116. Respiratory rate 23. Blood pressure 156/67. Satting at 94% on 5 liters nasal cannula. PHYSICAL EXAMINATION: General: The patient is sitting up in bed. She is well nourished in mild respiratory distress. Head: Normocephalic, atraumatic. Eyes: Extraocular movements are intact. Pupils equal round and reactive to light. Neck: Supple. No jugular venous pulse (JVP). Lungs: Good air entry. No crackles. No discernible wheezing. Cardiovascular: Regular rate and rhythm. Normal S1 and S2. No murmurs, gallops or rubs. Abdomen: Soft. Nontender. Nondistended. Positive bowel sounds. No rebound or guarding. Extremities: Trace edema. No calf tenderness. Skin is intact. No rashes, lesions or breakdowns. Neurologic: She is alert and oriented times three. No focal deficits appreciated on the exam. LABS AND IMAGING: Completed in the emergency room, white count of 7, hemoglobin/hematocrit (H/H) 14/43, platelet count indiscernible as the platelet clumped. Blood gas 7.4/33/82/25/97 on 4 liters nasal cannula. Chemistries with BUN and creatinine of 6 over 0.72. Rapid flu is positive for influenza A. Chest x-ray shows chronic stable changes. ASSESSMENT AND PLAN: Sepsis secondary to influenza with chronic obstructive pulmonary disease exacerbation, acute and chronic respiratory failure. Will admit patient to medical-surgical floor. Oxygen as needed to maintain oxygen saturation between 89-94%. Solu-Medrol 40 every 12 hours. DuoNeb every 4 hours standing. Albuterol every 2 hours as needed. Tamiflu 75 twice a day for five days. The rest of her chronic medical conditions are: Hypertension. Continue amlodipine. Osteoporosis. Continue alendronate as per outpatient schedule. Mood disorder not otherwise specified. Continue trazodone. Hyperlipidemia. Continue Lipitor. Supportive deep vein thrombosis (DVT) prophylaxis. Heparin subcutaneous. Gastrointestinal (GI) prophylaxis. Not indicated. Diet: Cardiac.
[2018-06-06 07:23] LABS: BLOOD UREA NITROGEN 11 MG/DL (7-18); CALCIUM LEVEL 8.9 MG/DL (8.8-10.2); CARBON DIOXIDE LEVEL 29 MEQ/L (21-32); CHLORIDE LEVEL 100 MEQ/L (98-107); CREATININE FOR GFR 0.84 MG/DL (0.55-1.30); GLOMERULAR FILTRATION RATE > 60.0 (>39); GLUCOSE, FASTING 178 MG/DL (70-100); POTASSIUM SERUM 3.3 MEQ/L (3.5-5.1); SODIUM LEVEL 139 MEQ/L (136-145)
[2018-06-06] MEDS: TIOTROPIUM INHALER/CAPSULE (SPIRIVA) INH SCH (07:24)
[2018-06-06] MEDS: ADVAIR HFA 230/21MCG INHALER INH SCH ×2 (07:24→20:06)
[2018-06-06] MEDS ORDERED: DOCUSATE SODIUM 100 MG CAP PO SCH (09:00)
[2018-06-06] MEDS ORDERED: POTASSIUM CHLORIDE 10 MEQ SR TABLET PO ONE (09:00)
[2018-06-06 09:30] LABS: MAGNESIUM LEVEL 2.1 MG/DL (1.8-2.4)
[2018-06-06] MEDS: amLODIPine 5 MG TAB PO SCH (09:51)
[2018-06-06] MEDS: OSELTAMIVIR PHOSPHATE 30MG CAPSULE PO SCH ×2 (09:51→22:10)
[2018-06-06] MEDS: ATORVASTATIN 10 MG TAB PO SCH (09:51)
--- NOTE | 2018-06-06 10:24 | ECGEPIP ---
Stationary ECG Study [facility] - ED Test Date: 2018-06-05 Pat Name: MICHAEL STAFFORD Department: Room: [place] [address] Gender: F Account Support Analyst: DOMINIC : 1950 Requested By: EVE Del Cid Order Number: [id number] Reading MD: Sangita Javier Measurements Intervals [place] Rate: 112 P: 80 HI: 147 QRS: 43 QRSD: 81 T: 57 QT: 317 QTc: 434 Interpretive Statements SINUS TACHYCARDIA MINIMAL ST DEPRESSION ABNORMAL RHYTHM ECG BASELINE ARTIFACT LIMITS INTERPRETATION SIMILAR 06/11/17 Electronically Signed On 06-06-2018 10:24:06 EDT by Sangita Javier
[2018-06-06 14:00] VITALS: BP 121/68
--- NOTE | 2018-06-06 21:06 | IPN ---
DATE: 06/06/2018 The patient is seen and examined. Admitted overnight. Reported respirations much improved. Still has a cough and wheeze. Baseline on 4 liters of oxygen at home. VITAL SIGNS: Temperature 98.5, pulse 81, respirations 28, blood pressure 121/68, pulse oximetry 94% on 4 liters nasal cannula. LABORATORY DATA: WBC 5.8, hematocrit and hematocrit 14 and 42.1, plast 314. Chemistry: Sodium 139, potassium 3.3, chloride 100, bicarbonate 29, BUN 11, creatinine 0.84. PHYSICAL EXAMINATION: GENERAL: The patient is alert, comfortable and in no acute distress. HEENT: Normocephalic, atraumatic. PULMONARY: Bilateral expiratory wheeze. CARDIAC: Regular. S1, S2. ABDOMEN: Soft, nontender. EXTREMITIES: No edema in bilateral lower extremities. ASSESSMENT AND PLAN: This is a 68-year-old female patient with underlying medical history of chronic obstructive pulmonary disease (COPD) with chronic hypoxic respiratory failure on 4 liters of oxygen, hypertension, dyslipidemia, osteoporosis, mood disorder, admitted with acute COPD exacerbation due to influenza. 1. Acute COPD exacerbation due to influenza. Solu-Medrol and taper as tolerated. Tamiflu has been prescribed. Nebulizer treatments. Advair, Spiriva, and oxygen supplementation. 2. Hypertension. Continue aspirin, Norvasc, and monitor blood pressure. 3. Dyslipidemia. Continue statin. 4. Mood disorder. Outpatient followup. Continue current medications. 5. Deep vein thrombosis (DVT) prophylaxis. Heparin subcutaneously. DISPOSITION: Pending clinical improvement, taper steroids.
[2018-06-06 22:00] VITALS: BP 139/73
[2018-06-06] MEDS: DOCUSATE SODIUM 100 MG CAP PO SCH (22:09)
[2018-06-06] MEDS: traZODone 50 MG TAB PO SCH (22:10)
[2018-06-06] MEDS: ASPIRIN 81 MG ENTERIC TAB PO SCH (22:10)
[2018-06-07] MEDS: methylPREDNISolone INJ 40 MG/1 ML VIAL (J2920) IV SCH ×2 (00:40→12:18)
[2018-06-07] MEDS: IPRATROPIUM 0.5MG/ALBUTEROL 2.5MG INH SOL UD 3ML (DUONEB)(J7620) NEB SCH ×6 (01:57→23:24)
[2018-06-07] MEDS: HEPARIN SOD (PORCINE) 5000 UNITS/ML VIAL SC SCH ×3 (05:54→21:39)
[2018-06-07 06:00] VITALS: BP 135/73
[2018-06-07 06:09] LABS: HEMATOCRIT 43.4 % (36.0-47.0); HEMOGLOBIN 14.2 g/dl (12.0-15.5); MEAN CORPUSCULAR HEMOGLOBIN 28.7 pg (27.0-33.0); MEAN CORPUSCULAR HGB CONC 32.7 g/dl (32.0-36.5); MEAN CORPUSCULAR VOLUME 87.9 fl (80.0-96.0); PLATELET COUNT, AUTOMATED 355 10^3/uL (150-450); RED BLOOD COUNT 4.94 10^6/uL (4.00-5.40)
[2018-06-07 06:37] LABS: BLOOD UREA NITROGEN 18 MG/DL (7-18); CALCIUM LEVEL 9.6 MG/DL (8.8-10.2); CARBON DIOXIDE LEVEL 30 MEQ/L (21-32); CHLORIDE LEVEL 102 MEQ/L (98-107); CREATININE FOR GFR 0.86 MG/DL (0.55-1.30); GLOMERULAR FILTRATION RATE > 60.0 (>39); GLUCOSE, FASTING 167 MG/DL (70-100); MAGNESIUM LEVEL 2.4 MG/DL (1.8-2.4); SODIUM LEVEL 139 MEQ/L (136-145)
[2018-06-07] MEDS: ADVAIR HFA 230/21MCG INHALER INH SCH ×2 (08:06→20:24)
[2018-06-07] MEDS: TIOTROPIUM INHALER/CAPSULE (SPIRIVA) INH SCH (08:06)
[2018-06-07] MEDS: amLODIPine 5 MG TAB PO SCH (08:51)
[2018-06-07] MEDS: OSELTAMIVIR PHOSPHATE 30MG CAPSULE PO SCH ×2 (08:51→21:39)
[2018-06-07] MEDS: ATORVASTATIN 10 MG TAB PO SCH (08:51)
[2018-06-07 14:00] VITALS: BP 136/64
--- NOTE | 2018-06-07 20:03 | IPNPDOC ---
Text Note Date of Service The patient was seen on 06/07/18. NOTE The patient is seen and examined. Reported respirations much improved. Still has a cough. no wheeze Baseline on 4 liters of oxygen at home. PHYSICAL EXAMINATION: GENERAL: The patient is alert, comfortable and in no acute distress. HEENT: Normocephalic, atraumatic. PULMONARY: b/L clear. CARDIAC: Regular. S1, S2. ABDOMEN: Soft, nontender. EXTREMITIES: No edema in bilateral lower extremities. ASSESSMENT AND PLAN: This is a 68-year-old female patient with underlying medical history of chronic obstructive pulmonary disease (COPD) with chronic hypoxic respiratory failure on 4 liters of oxygen, hypertension, dyslipidemia, osteoporosis, mood disorder, admitted with acute COPD exacerbation due to influenza. 1. Acute COPD exacerbation due to influenza. Solu-Medrol and taper as tolerated. Tamiflu has been prescribed. Nebulizer treatments. Advair, Spiriva , and oxygen supplementation. 2. Hypertension. Continue aspirin, Norvasc, and monitor blood pressure. 3. Dyslipidemia. Continue statin. 4. Mood disorder. Outpatient followup. Continue current medications. 5. Deep vein thrombosis (DVT) prophylaxis. Heparin subcutaneously. DISPOSITION: Pending clinical improvement, taper steroids. dc in 24-48hr VS,Shannan, I+O VS, Myriame, I+O Laboratory Tests 06/07/18 05:38 Red Blood Count 4.94, Mean Corpuscular Volume 87.9, Mean Corpuscular Hemoglobin 28.7, Mean Corpuscular Hemoglobin Concent 32.7, Red Cell Distribution Width 12.5, Calcium Level 9.6 Vital Signs Date Time Temp Pulse Resp B/P (MAP) Pulse Ox O2 Delivery O2 Flow Rate FiO2 06/07/18 14:00 97.0 85 18 136/64 (88) 99 4.0 06/06/18 00:17 Nasal Cannula I&O- Last 24 Hours up to 6 AM 06/07/18 06:00 Intake Total 2280 ml Output Total 1925 ml Balance 355 ml HAN WHALEY MD Jun 07, 2018 20:03
[2018-06-07] MEDS: DOCUSATE SODIUM 100 MG CAP PO SCH (21:39)
[2018-06-07] MEDS: traZODone 50 MG TAB PO SCH (21:39)
[2018-06-07] MEDS: ASPIRIN 81 MG ENTERIC TAB PO SCH (21:39)
[2018-06-07 22:00] VITALS: BP 135/67
[2018-06-08] MEDS: methylPREDNISolone INJ 40 MG/1 ML VIAL (J2920) IV SCH (00:25)
[2018-06-08] MEDS: IPRATROPIUM 0.5MG/ALBUTEROL 2.5MG INH SOL UD 3ML (DUONEB)(J7620) NEB SCH ×3 (03:26→11:09)
[2018-06-08 06:00] VITALS: BP 134/67
[2018-06-08] MEDS: HEPARIN SOD (PORCINE) 5000 UNITS/ML VIAL SC SCH (06:30)
[2018-06-08 06:38] LABS: HEMATOCRIT 41.5 % (36.0-47.0); HEMOGLOBIN 13.4 g/dl (12.0-15.5); MEAN CORPUSCULAR HEMOGLOBIN 28.7 pg (27.0-33.0); MEAN CORPUSCULAR HGB CONC 32.3 g/dl (32.0-36.5); MEAN CORPUSCULAR VOLUME 88.9 fl (80.0-96.0); PLATELET COUNT, AUTOMATED 324 10^3/uL (150-450); RED BLOOD COUNT 4.67 10^6/uL (4.00-5.40); WHITE BLOOD COUNT 11.5 10^3/uL (4.0-10.0)
[2018-06-08 07:08] LABS: BLOOD UREA NITROGEN 25 MG/DL (7-18); CALCIUM LEVEL 9.4 MG/DL (8.8-10.2); CARBON DIOXIDE LEVEL 30 MEQ/L (21-32); CHLORIDE LEVEL 103 MEQ/L (98-107); CREATININE FOR GFR 0.82 MG/DL (0.55-1.30); GLOMERULAR FILTRATION RATE > 60.0 (>39); GLUCOSE, FASTING 144 MG/DL (70-100); MAGNESIUM LEVEL 2.3 MG/DL (1.8-2.4); POTASSIUM SERUM 4.1 MEQ/L (3.5-5.1); SODIUM LEVEL 140 MEQ/L (136-145)
[2018-06-08] MEDS: TIOTROPIUM INHALER/CAPSULE (SPIRIVA) INH SCH (07:23)
[2018-06-08] MEDS: ADVAIR HFA 230/21MCG INHALER INH SCH (07:23)
[2018-06-08] MEDS: OSELTAMIVIR PHOSPHATE 30MG CAPSULE PO SCH (09:22)
[2018-06-08] MEDS: ATORVASTATIN 10 MG TAB PO SCH (09:22)
[2018-06-08 09:24] VITALS: BP 130/67
[2018-06-08] MEDS: amLODIPine 5 MG TAB PO SCH (09:24)
[2018-06-08] MEDS ORDERED: OSEL30CA PO (10:01)
[2018-06-08] MEDS ORDERED: PRED10TA2 PO (10:01)
--- NOTE | 2018-06-08 16:32 | DSES ---
DATE OF ADMISSION: 06/05/2018 DATE OF DISCHARGE: 06/08/2018 PRIMARY CARE PROVIDER: Deb Thomas, nurse practitioner BRIDGE CARPENTER: Dr. Wolfe. FINAL DIAGNOSIS: 1. Acute chronic obstructive pulmonary disease exacerbation due to influenza A. 2. Hypertension. 3. Dyslipidemia. 4. Mood disorder. 5. Deconditioning. 6. Chronic hypoxic respiratory failure, on 4 liters oxygen at home. HISTORY OF PRESENT ILLNESS: This is a 68-year-old female patient with underlying medical history of chronic obstructive pulmonary disease (COPD), chronic hypoxic respiratory failure, on 4 liters oxygen via nasal cannula at home, hypertension, dyslipidemia, osteoporosis, mood disorder, who presented to the emergency room with a few days' history of cough productive of yellow phlegm, worsening respirations, requiring more oxygen, diffuse body aches, headache, rhinorrhea with dry heaves. Denies vomiting. Denies chest pain. Admits to having sick contact. Friends recently had flu. Denies any abdominal pain, constipation. HOSPITAL COURSE: The patient was found to have influenza. Started on Solu-Medrol, Tamiflu, nebulizer treatments. Patient's oxygen supplementation continued. Home medication was continued. Patient's condition gradually improved. Tapered steroids. Currently is back on baseline oxygen supplementation. Tolerating oral. Passed physical therapy. Ready to be discharged for further care as outpatient. VITAL SIGNS: Temperature 97.2, pulse 80, respirations 19, blood pressure 130/67, pulse oximetry 100% on 4 liters. LABORATORY DATA: WBC 11.5, hemoglobin and hematocrit 13.4/41.5, platelets 324. Chemistry: Sodium 140, potassium 4.1, chloride 103, bicarbonate 30, BUN 25, creatinine 0.82. PHYSICAL EXAMINATION: GENERAL: Patient comfortable in no acute distress. HEENT: Normocephalic, atraumatic. PULMONARY: Bilaterally clear. CARDIAC: Regular, S1, S2. ABDOMEN: Soft, nontender. Positive bowel sounds. EXTREMITIES: No clubbing, cyanosis, or edema. DISCHARGE MEDICATIONS: - prednisone taper, 10 mg tablet, take four tablets daily for 3 days, then three tablets daily for 3 days, then two tablets daily for 3 days, then one tablet daily for 3 days. - Tamiflu 30 mg by mouth twice a day for 3 more days - acetaminophen 1000 mg by mouth every 6 hours as needed - albuterol inhalation every 4 hours as needed - DuoNeb inhalation four times a day as needed - alendronate 70 mg by mouth weekly - Norvasc 5 mg by mouth daily - aspirin 81 mg by mouth at bedtime - Lipitor 10 mg by mouth daily - Colace 100 mg by mouth at bedtime - vitamin D 50,000 units by mouth weekly - Ellipta inhalation daily - Advair inhalation 230/21 mcg inhalation twice a day - trazodone 50 mg by mouth at bedtime DISCHARGE INSTRUCTIONS: Please see primary care provider in [address] Wolfe, solar installer technician, in 2 weeks. Return if symptoms worsen.
== END 2018-06-08 11:28 | disposition home health service (06) | DRG 191 ==
LOC: M ED 19:47 → EDBD 19:47 → M ED INP 22:31 → M MS5PR 06-06 00:40
PROVIDERS: ADMIT Internal Medicine; ATTEND Hospitalist
DX: J44.1 Chronic obstructive pulmonary disease with (acute) exacerbation (principal); J96.11 Chronic respiratory failure with hypoxia; J10.1 Influenza due to other identified influenza virus with other respiratory manifestations; E78.5 Hyperlipidemia, unspecified; I10 Essential (primary) hypertension; F39 Unspecified mood [affective] disorder; Z79.82 Long term (current) use of aspirin; Z79.899 Other long term (current) drug therapy; M81.0 Age-related osteoporosis without current pathological fracture

== ENCOUNTER 2018-07-02 06:54 | Inpatient (IN) | payer MEDICARE, MEDICAID ==
[~2018-07-02] VITALS: Ht 154.9 cm; Wt 77.7 kg
[~2018-07-02 06:54] MED LIST changes: -/HCTZ25TA PO; -/IPRAINH INH; -/TIOT18INH INH; +ACET-683 PO; -ALEN70TA57 PO; +ALEN70TA74 PO; -ASPI1TAB PO; +ASPI81TA26 PO; +ASPI81TAEC PO; +ATRO0.063 INH; +HYDR-3644 PO; +LEVO500T3 PO; +OSEL30CA PO; +PROAAER10 INH; +SPIR1CAP INH; -TRAZ-160 PO; +TRAZ-252 PO; +TRAZ1TAB6 PO; -TRAZO50TA PO
[2018-07-02] MEDS ORDERED: IPRATROPIUM 0.5MG/ALBUTEROL 2.5MG INH SOL UD 3ML (DUONEB)(J7620) NEB PRN ×2 (07:00→12:15)
[2018-07-02] MEDS ORDERED: methylPREDNISolone INJ 125 MG/2 ML VIAL (J2930) IV ONE (07:00)
[2018-07-02] MEDS ORDERED: ACETAMINOPHEN 500 MG TAB PO ONE (07:15)
[2018-07-02] MEDS: IPRATROPIUM 0.5MG/ALBUTEROL 2.5MG INH SOL UD 3ML (DUONEB)(J7620) NEB SCH ×6 (07:25→19:51)
[2018-07-02 07:38] LABS: ABG BASE EXCESS 4.2 (-2.0-2.0); ABG HCO3 28.5 MEQ/L (22.0-26.0); ABG O2 SATURATION 94.5 % (95.0-99.0); ABG PARTIAL PRESSURE CO2 41.6 mmHg (35.0-45.0); ABG STANDARD HCO3 28.1 MEQ/L (22.0-26.0); ABG TOTAL CO2 29.8 MEQ/L (23.0-31.0); ABG pH (ARTERIAL) 7.454 UNITS (7.350-7.450)
[2018-07-02] MEDS ORDERED: DOCU100C17 PO (07:50)
[2018-07-02] MEDS ORDERED: IBUP-1091 PO (07:50)
--- NOTE | 2018-07-02 08:02 | REP ---
Portable chest x-ray: Single AP view. History: Dyspnea and cough. Comparison study: June 05, 2018. Findings: EKG monitoring electrodes overlie the chest. There is mild plate-like atelectasis in the right base. Interstitial markings are somewhat prominent in the bases bilaterally and are of emphysematous changes in the upper lobes as before consistent with COPD. Heart is not enlarged. No focal infiltrate is seen. Impression: Evidence of COPD. Plate-like atelectasis right base. No acute disease. Electronically Signed by Lewis Sanchez MD 07/02/2018 07:54 A
[2018-07-02 08:11] LABS: BASO # 0.1 10^3/uL (0.0-0.2); BASO % 0.5 % (0.0-1.0); EOS # 0.2 10^3/uL (0.0-0.50); EOS % 1.7 % (0.0-3.0); HEMATOCRIT 45.2 % (36.0-47.0); HEMOGLOBIN 14.5 g/dl (12.0-15.5); LYMPH # 1.2 10^3/uL (1.5-4.5); LYMPH % 11.4 % (24.0-44.0); MEAN CORPUSCULAR HEMOGLOBIN 29.2 pg (27.0-33.0); MEAN CORPUSCULAR HGB CONC 32.1 g/dl (32.0-36.5); MEAN CORPUSCULAR VOLUME 90.9 fl (80.0-96.0); MONO # 0.6 10^3/uL (0.0-0.8); MONO % 5.6 % (0.0-5.0); NEUTROPHILS # 8.4 10^3/uL (1.8-7.7); NEUTROPHILS % 79.9 % (36.0-66.0); PLATELET COUNT, AUTOMATED 197 10^3/uL (150-450); RED BLOOD COUNT 4.97 10^6/uL (4.00-5.40); WHITE BLOOD COUNT 10.5 10^3/uL (4.0-10.0)
[2018-07-02 08:27] LABS: INR 0.97
[2018-07-02 08:40] LABS: INFLUENZA A AMPLIFICATION NEGATIVE (NEGATIVE); INFLUENZA B AMPLIFICATION NEGATIVE (NEGATIVE)
[2018-07-02 08:51] LABS: ALBUMIN 3.5 GM/DL (3.2-5.2); ALT/SGPT 32 U/L (12-78); BILIRUBIN,DIRECT 0.1 MG/DL (0.0-0.2); BILIRUBIN,TOTAL 0.5 MG/DL (0.2-1.0); BLOOD UREA NITROGEN 10 MG/DL (7-18); CALCIUM LEVEL 8.5 MG/DL (8.8-10.2); CARBON DIOXIDE LEVEL 30 MEQ/L (21-32); CHLORIDE LEVEL 104 MEQ/L (98-107); CPK CREATINE PHOSPHOKINASE 46 U/L (26-192); CREATININE FOR GFR 0.55 MG/DL (0.55-1.30); GLOMERULAR FILTRATION RATE > 60.0 (>39); GLUCOSE, FASTING 116 MG/DL (70-100); MB/CK RELATIVE INDEX 2.17 (< OR =4); NT-PRO BNP 45 PG/ML (<125); POTASSIUM SERUM 3.7 MEQ/L (3.5-5.1); SODIUM LEVEL 140 MEQ/L (136-145); THYROID STIMULATING HORMONE 0.376 uIU/ML (0.358-3.740); TOTAL PROTEIN 6.2 GM/DL (6.4-8.2); TROPONIN I < 0.02 NG/ML (< 0.10)
[2018-07-02] MEDS ORDERED: LORazepam 2 MG/ML VIAL (J2060) IV STA (08:55)
[2018-07-02] MEDS ORDERED: ISOVUE-370 76% 100ML VIAL (Q9967) As Ordered ONE (09:09)
--- NOTE | 2018-07-02 10:38 | REP ---
CT PULMONARY ANGIOGRAM: WITH IV CONTRAST. HISTORY: Shortness of breath. Rule out pulmonary embolus. COMPARISON STUDIES: Comparison study, June 11, 2017. CONTRAST DOSE: 75 mL of Isovue [address] TECHNIQUE: Helical scanning is acquired and overlapping 1.5 mm and contiguous 3 mm axial images are reformatted. In addition, maximum intensity projection and multiplanar re-formation images are generated in sagittal and coronal imaging projections. CT PULMONARY ANGIOGRAPHIC FINDINGS: There is good opacification of the pulmonary arterial tree. There is no CT evidence of pulmonary embolism. There is no evidence of aortic aneurysm or dissection. The thoracic aorta somewhat tortuous as before. No pleural or pericardial effusion is apparent. No hilar or mediastinal mass or adenopathy is observed. The lungs are hyperinflated consistent with COPD, and there are emphysematous changes in the upper lobes bilaterally as previously noted. No infiltrate is visible today. No adrenal lesion is seen. The visualized upper abdominal structures are unremarkable. No pulmonary nodule or mass lesion is visible. No bony destructive lesion. IMPRESSION: No CT evidence of pulmonary embolus. Hyperinflation COPD with emphysematous changes. Otherwise no acute disease seen. Electronically Signed by Lewis Sanchez MD 07/02/2018 08:28 P
[2018-07-02] MEDS: ACETAMINOPHEN 500 MG TAB PO PRN ×2 (11:54→18:27)
[2018-07-02] MEDS: ADVAIR HFA 230/21MCG INHALER INH SCH ×2 (12:29→21:00)
[2018-07-02] MEDS: PANTOPRAZOLE 40MG TAB (PROTONIX) PO SCH (13:18)
[2018-07-02] MEDS ORDERED: methylPREDNISolone INJ 125 MG/2 ML VIAL (J2930) IV SCH (16:00)
--- NOTE | 2018-07-02 16:09 | HPEPDOC ---
[facility] Medical History & Physical Date of Admission Jul 02, 2018 Attending Physician: CHARLES ASHRAF MD History and Physical CHIEF COMPLAINT: shortness of breath HISTORY OF PRESENT ILLNESS: Magalie Conteh is a 68-year-old woman with past medical history COPD, (GOLD classification IV, on 3L home O2), who presents with about 24 hours of shortness of breath and difficulty catching her breath. She states that yesterday morning she first noticed she was not able to walk more than about 30 feet before having to stop to catch her breath. She also had a frontal headache. She states she recently was hospitalized with influenza and was discharged from [facility] on 06/08/2018. She is unsure of whether she has had any fevers, but she does state she felt warm and had some chills last night. She denies any nausea, vomiting or diarrhea. She has been taking all of her medications as prescribed. PAST MEDICAL HISTORY: Hypertension, essential. COPD, GOLD classification IV - FEV1 = 0.74- 8, @ pulmonary. Hypoxemia. Mixed hyperlipidemia. Diverticulitis. fx. of R foot, L hand, leg (accidents). Tobacco abuse,quit. Loss of teeth due to periodontal disease. senile osteoporosis - started alendronate 2012, last DEXA 08/25. echo 06/21, limited study, PA pressure could not be determined, EF 65-70%. Metabolic syndrome. HOSPITALIZATIONS: Left Arm Pain x 4 days 01/26 - COPD exacerbation 07/02 - 07/06/11 COPD exacerbation 02/28 - 03/04/15 COPD exacerbation 03/10/17-03/13/17 COPD exacerbation associated with Rhinovirus infection 05/04/17-05/09/17 COPD exacerbation 06/11/17-06/15/17 COPD exacerbation due to influenza A 06/05/18-06/08/18 PAST SURGICAL HISTORY: C section 1970,74 tonsillectomy 1961 D&C / post cysts removed from ovary 1966 Refuses colonoscopy 01-01-15 SOCIAL HISTORY: Lives in [place] with her . Former smoker, 20 pack years. No alcohol use. No other drug use FAMILY HISTORY: noncontributory ALLERGIES: Please see below. REVIEW OF SYSTEMS: Negative other than what is stated in HPI HOME MEDICATIONS: Please see below. PHYSICAL EXAMINATION: VITAL SIGNS: See below GENERAL APPEARANCE: Laying in bed, appears uncomfortable, using accessory muscles of breathing HEENT: moist mucus membranes, EOMI, no thyromegaly CARDIOVASCULAR: RRR, no m/r/g, normal S1/S2 LUNGS: decreased breath sounds bilaterally with expiration>inspiration ABDOMEN: soft, nontender to palpation, +BS, no organomegaly or masses BACK: 3cm pedunculated soft mas protruding from skin in left upper back MUSCULOSKELETAL: moves all extremities well EXTREMITIES: no clubbing/cyanosis/edema NEUROLOGICAL: CN 2-12 intact without any focal deficits PSYCHIATRIC: normal mood/affect, AAOx3 LABORATORY DATA: See below. IMAGING: CXR: Findings: EKG monitoring electrodes overlie the chest. There is mild plate- like atelectasis in the right base. Interstitial markings are somewhat prominent in the bases bilaterally and are of emphysematous changes in the upper lobes as before consistent with COPD. Heart is not enlarged. No focal infiltrate is seen. Impression: Evidence of COPD. Plate-like atelectasis right base. No acute disease. CTA: IMPRESSION: No CT evidence of pulmonary embolus. Hyperinflation COPD with emphysematous changes. Otherwise no acute disease seen. MICROBIOLOGY: Please see below. ASSESSMENT: This is a 68 YO F with history of COPD (on 3L home o2) with over 24h shortness of breath, subjective fevers, chills in the setting of recent influenza. In the ED, she was found to have mild leukocytosis and increased oxygen requirement concerning for COPD exacerbation. She will be admitted to the medical/surgical floor for further management. PLAN: 1. Acute on chronic hypoxic respiratory failure (on 24/7 oxygen at home) concerning for COPD exacerbation: -Solumedrol 60mg Q8H -DUOnebs PRN -Protonix 40mg PO QD -Oxygen titration for saturation 88-92% -COPD diet 2. Hypertension: -Continue Norvasc 5mg daily 3. Hyperlipidemia: -Continue Atorvastatin 10mg daily 4. Mood disorder: -Continue Trazodone PPX: TEDs/Sequentials DISPO: Pending clinical improvement Vital Signs Vital Signs Date Time Temp Pulse Resp B/P (MAP) Pulse Ox O2 Delivery O2 Flow Rate FiO2 07/02/18 12:28 144/76 (98) 07/02/18 12:15 102 98 Nasal Cannula 3.0 07/02/18 07:09 99.2 Laboratory Data Labs 24H Laboratory Tests 2 07/02/18 07:25: Blood Gas Bicarbonate Standard 28.1H, Arterial Blood pH 7.454H, Arterial Blood Partial Pressure CO2 41.6, Arterial Blood Partial Pressure O2 65.0L, Arterial Blood Total CO2 29.8, Arterial Blood HCO3 28.5H, Arterial Blood Base Excess 4.2H, Arterial Blood Oxygen Saturation 94.5L 07/02/18 07:39: Immature Granulocyte % (Auto) 0.9, White Blood Count 10.5H, Red Blood Count 4.97, Hemoglobin 14.5, Hematocrit 45.2, Mean Corpuscular Volume 90.9, Mean Corpuscular Hemoglobin 29.2, Mean Corpuscular Hemoglobin Concent 32.1, Red Cell Distribution Width 14.3, Platelet Count 197, Neutrophils (%) (Auto) 79.9H, Lymphocytes (%) (Auto) 11.4L, Monocytes (%) (Auto) 5.6H, Eosinophils (%) (Auto) 1.7, Basophils (%) (Auto) 0.5, Neutrophils # (Auto) 8.4H, Lymphocytes # (Auto) 1.2L, Monocytes # (Auto) 0.6, Eosinophils # (Auto) 0.2, Basophils # (Auto) 0.1, Nucleated Red Blood Cells % (auto) 0.0, Prothrombin Time 13.0, Prothromb Time International Ratio 0.97, Lactic Acid Level 1.8, Influenza Type A (RT-PCR) NEGATIVE, Influenza Type B (RT-PCR) NEGATIVE 07/02/18 07:40: Anion Gap 6L, Glomerular Filtration Rate > 60.0, Calcium Level 8.5L, Aspartate Amino Transf (AST/SGOT) 9, Alanine Aminotransferase (ALT/SGPT) 32, Alkaline Phosphatase 75, Total Bilirubin 0.5, Direct Bilirubin 0.1, Total Creatine Kinase 46, Creatine Kinase MB 1.0, Creatine Kinase MB Relative Index 2.17, Troponin I < 0.02, XI-Dlf-J-Type Natriuretic Peptide 45, Total Protein 6.2L, Albumin 3.5, Albumin/Globulin Ratio 1.30, Thyroid Stimulating Hormone (TSH) 0.376 CBC/BMP Laboratory Tests 07/02/18 07:39 Red Blood Count 4.97, Mean Corpuscular Volume 90.9, Mean Corpuscular Hemoglobin 29.2, Mean Corpuscular Hemoglobin Concent 32.1, Red Cell Distribution Width 14.3, Neutrophils (%) (Auto) 79.9 H, Lymphocytes (%) (Auto) 11.4 L, Monocytes (%) (Auto) 5.6 H, Eosinophils (%) (Auto) 1.7, Basophils (%) (Auto) 0.5, Neutrophils # (Auto) 8.4 H, Lymphocytes # (Auto) 1.2 L, Monocytes # (Auto) 0.6, Eosinophils # (Auto) 0.2, Basophils # (Auto) 0.1 07/02/18 07:40 Microbiology Microbiology 07/02/18 Blood Culture, Received Pending 07/02/18 Blood Culture, Received Pending Home Medications Scheduled Alendronate Sodium (Alendronate Sodium) 70 Mg Tab, 70 MG PO QWEEK SATURDAYS Amlodipine Besylate (Amlodipine Besylate) 5 Mg Tab, 5 MG PO DAILY Aspirin (Aspirin EC) 81 Mg Tabec, 81 MG PO QHS Atorvastatin Calcium (Atorvastatin Calcium) 10 Mg Tab, 10 MG PO DAILY Docusate Sodium (Docusate Sodium) 100 Mg Capsule, 100 MG PO QHS Fluticasone Propion/Salmeterol (Advair Hfa 230-21 Mcg Inhaler) 1 Aer Aer, 2 PUFF INH BID Trazodone HCl (Trazodone HCl) 50 Mg Tab, 50 MG PO QHS [place]clidin[place] (Incruse Ellipta) 62.5 Mcg/Inh Inh, 1 PUFF INH DAILY Scheduled PRN Acetaminophen (Acetaminophen) 500 Mg Tab, 1,000 MG PO Q6H PRN for HEADACHE OR PAIN Albuterol Sulfate (Proair Hfa) 108 Mcg/Act Aer, 2 PUFF INH Q4H PRN for SHORTNESS OF BREATH Ibuprofen (Ibuprofen) 200 Mg Tablet, 400 MG PO Q6H PRN for HEADACHE Ipratropium/Albuterol Sulfate (Iprat-Albut 0.5-3(2.5) mg/3 ml) 1 Gee Gee, 1 GEE INH QID PRN for SHORTNESS OF BREATH Allergies Coded Allergies: No Known Allergies (Unverified , 06/05/18) GME ATTESTATION GME ATTESTATION My faculty preceptor for this patient encounter was physically present during the encounter and was fully available. All aspects of the patient interview, examination, medical decision making process, and medical care plan development were reviewed and approved by the faculty preceptor. The faculty preceptor is aware and concurs with the plan as stated in the body of this note and will attest to such by his/her cosignature. ATTENDING NOTE I, Charles Ashraf, have both independently examined this patient as well as reviewed the documentation. I have discussed in detail with the resident the findings and plan of treatment as documented in the residents documentation. I will continue to follow the patient and offer further guidance to the patients care as necessary during this hospital stay. YAZ SAWANT MD Jul 02, 2018 14:50 CHARLES ASHRAF MD Jul 02, 2018 18:21
[2018-07-02 16:25] VITALS: BP 141/88
[2018-07-02] MEDS: methylPREDNISolone INJ 125 MG/2 ML VIAL (J2930) IV SCH (17:28)
[2018-07-02] MEDS: traZODone 50 MG TAB PO SCH (20:52)
[2018-07-02] MEDS: ASPIRIN 81 MG ENTERIC TAB PO SCH (20:52)
[2018-07-02 22:00] VITALS: BP 136/63
--- NOTE | 2018-07-02 23:16 | ECGEPIP ---
Stationary ECG Study [facility] - ED Test Date: 2018-07-02 Pat Name: MICHAEL STAFFORD Department: Room: - Gender: F Brinell Tester: TC : 1950 Requested By: Sangita Javier Order Number: [id number] Reading MD: Reginald Owens Measurements Intervals [place] Rate: 95 P: 93 MO: 173 QRS: 47 QRSD: 76 T: 79 QT: 314 QTc: 396 Interpretive Statements SINUS RHYTHM NSTTW ABNORMALITIES SIMILAR TO 06/05/18 Electronically Signed On 07-02-2018 23:16:01 EDT by Reginald Owens
[2018-07-03] VITALS (7 sets, daily range): BP systolic 128–165; BP diastolic 68–97
[2018-07-03] MEDS: IPRATROPIUM 0.5MG/ALBUTEROL 2.5MG INH SOL UD 3ML (DUONEB)(J7620) NEB SCH ×6 (00:18→20:00)
[2018-07-03] MEDS: methylPREDNISolone INJ 125 MG/2 ML VIAL (J2930) IV SCH (00:32)
[2018-07-03] MEDS: ACETAMINOPHEN 500 MG TAB PO PRN ×4 (00:33→22:21)
[2018-07-03 06:04] LABS: ABG BASE EXCESS 3.2 (-2.0-2.0); ABG HCO3 27.8 MEQ/L (22.0-26.0); ABG O2 SATURATION 93.4 % (95.0-99.0); ABG PARTIAL PRESSURE CO2 42.1 mmHg (35.0-45.0); ABG STANDARD HCO3 27.2 MEQ/L (22.0-26.0); ABG TOTAL CO2 29.1 MEQ/L (23.0-31.0); ABG pH (ARTERIAL) 7.437 UNITS (7.350-7.450)
[2018-07-03 06:39] LABS: HEMATOCRIT 43.3 % (36.0-47.0); HEMOGLOBIN 13.8 g/dl (12.0-15.5); MEAN CORPUSCULAR HEMOGLOBIN 28.4 pg (27.0-33.0); MEAN CORPUSCULAR HGB CONC 31.9 g/dl (32.0-36.5); MEAN CORPUSCULAR VOLUME 89.1 fl (80.0-96.0); PLATELET COUNT, AUTOMATED 197 10^3/uL (150-450); RED BLOOD COUNT 4.86 10^6/uL (4.00-5.40); WHITE BLOOD COUNT 7.5 10^3/uL (4.0-10.0)
[2018-07-03 07:04] LABS: BLOOD UREA NITROGEN 17 MG/DL (7-18); CALCIUM LEVEL 8.8 MG/DL (8.8-10.2); CARBON DIOXIDE LEVEL 28 MEQ/L (21-32); CHLORIDE LEVEL 105 MEQ/L (98-107); CREATININE FOR GFR 0.78 MG/DL (0.55-1.30); GLOMERULAR FILTRATION RATE > 60.0 (>39); GLUCOSE, FASTING 195 MG/DL (70-100); MAGNESIUM LEVEL 2.2 MG/DL (1.8-2.4); POTASSIUM SERUM 3.6 MEQ/L (3.5-5.1); SODIUM LEVEL 140 MEQ/L (136-145)
[2018-07-03] MEDS: ADVAIR HFA 230/21MCG INHALER INH SCH ×2 (07:29→21:37)
[2018-07-03] MEDS: amLODIPine 5 MG TAB PO SCH (09:08)
[2018-07-03] MEDS: ATORVASTATIN 10 MG TAB PO SCH (09:08)
[2018-07-03] MEDS: PANTOPRAZOLE 40MG TAB (PROTONIX) PO SCH (09:08)
--- NOTE | 2018-07-03 09:43 | REP ---
LUMBAR SPINE, FIVE VIEWS: HISTORY: Back pain. There is no acute fracture or subluxation. The L2-3 through L5-S1 intervertebral discs are decreased in height consistent with disc generation. There is narrowing of the L4-5 and L5-S1 facet joints. IMPRESSION:Degenerative change as described above. Electronically Signed by Janes Benites MD 07/03/2018 09:56 A
--- NOTE | 2018-07-03 09:46 | REP ---
Chest x-ray: Two views. History: COPD exacerbation. Comparison study: July 02, 2018. Findings: The lungs are hyperinflated consistent with COPD. There is some bibasilar fibrotic changes which are less pronounced than on the recent study of 07/02/2018 suggesting some improvement in interstitial edema pattern. Heart size is borderline. There are degenerative changes in the thoracic spine. Pulmonary vasculature is not increased. Impression: No acute infiltrate. Evidence of COPD. Bibasilar interstitial markings are somewhat improved from yesterday's radiograph. Electronically Signed by Lewis Sanchez MD 07/03/2018 11:27 A
[2018-07-03] MEDS ORDERED: LORazepam 2 MG/ML VIAL (J2060) IV STA ×2 (09:56→18:06)
[2018-07-03] MEDS ORDERED: LORazepam 0.5 MG TAB PO ONE (10:00)
--- NOTE | 2018-07-03 11:19 | IPNPDOC ---
Date Seen The patient was seen on 07/03/18. Progress Note SUBJECTIVE: Patient reports that her breathing is better and back to baseline. She appears uncomfortable today sitting on the edge of the bed with sister/niece at the bedside. She states she is feeling 7/10 aching pain and discomfort in her lower back. She has no history of lower back pain. She is currently wearing a back brace which is her 's from home. She states that the stability is helping her, along with a kpad. OBJECTIVE PHYSICAL EXAMINATION: VITAL SIGNS: Please see below. GENERAL APPEARANCE: Laying in bed, appears uncomfortable, using accessory muscles of breathing HEENT: moist mucus membranes, EOMI, no thyromegaly CARDIOVASCULAR: RRR, no m/r/g, normal S1/S2 LUNGS: decreased breath sounds bilaterally with expiration>inspiration ABDOMEN: soft, nontender to palpation, +BS, no organomegaly or masses BACK: 3cm pedunculated soft mas protruding from skin in left upper back MUSCULOSKELETAL: moves all extremities well EXTREMITIES: no clubbing/cyanosis/edema NEUROLOGICAL: CN 2-12 intact without any focal deficits PSYCHIATRIC: normal mood/affect, AAOx3 LABORATORY DATA, IMAGING STUDIES, MICROBIOLOGY: Please see below. DVT prophylaxis ordered?: TEDs/Sequentials CXR: Findings: The lungs are hyperinflated consistent with COPD. There is some bibasilar fibrotic changes which are less pronounced than on the recent study of 07/02/2018 suggesting some improvement in interstitial edema pattern. Heart size is borderline. There are degenerative changes in the thoracic spine. Pulmonary vasculature is not increased. Impression: No acute infiltrate. Evidence of COPD. Bibasilar interstitial markings are somewhat improved from yesterday's radiograph. LUMBAR SPINE XR: There is no acute fracture or subluxation. The L2-3 through L5-S1 intervertebral discs are decreased in height consistent with disc generation. There is narrowing of the L4-5 and L5-S1 facet joints. IMPRESSION:Degenerative change as described above. ASSESSMENT: This is a 68 YO F with history of COPD (on 3L home o2) with over 24h shortness of breath, subjective fevers, chills in the setting of recent influenza concerning for COPD exacerbation. PLAN: 1. Acute on chronic hypoxic respiratory failure (on 24/7 oxygen at home) concerning for COPD exacerbation:: -Solumedrol decreased to 40mg Q12 -c/w Inhaled therapy as ordered -Protonix 40mg PO QD -Oxygen titration for saturation 88-92% -COPD diet 2. Hypertension: -Continue Norvasc 5mg daily 3. Hyperlipidemia: -Continue Atorvastatin 10mg daily 4. Mood disorder: -Continue Trazodone 5. Low back pain: -Lumbar XR negative for any abnormality -Tramadol for pain -continue heating pad for discomfort PPX: TEDs/Sequentials DISPO: Pending clinical improvement A-FIB/CHADSVASC A-FIB History Current/History of A-Fib/PAF?: No VS, I&O, 24H, Fishbone Vital Signs/I&O Vital Signs Date Time Temp Pulse Resp B/P (MAP) Pulse Ox O2 Delivery O2 Flow Rate FiO2 07/03/18 09:08 94 141/75 07/03/18 07:29 16 07/03/18 06:00 97.8 96 07/03/18 04:16 4.0 07/02/18 12:15 Nasal Cannula I&O- Last 24 Hours up to 6 AM 07/03/18 06:00 Intake Total 600 ml Output Total 450 ml Balance 150 ml Laboratory Data 24H LABS Laboratory Tests 2 07/03/18 05:30: Blood Gas Bicarbonate Standard 27.2H, Arterial Blood pH 7.437, Arterial Blood Partial Pressure CO2 42.1, Arterial Blood Partial Pressure O2 62.0L, Arterial Blood Total CO2 29.1, Arterial Blood HCO3 27.8H, Arterial Blood Base Excess 3.2H, Arterial Blood Oxygen Saturation 93.4L 07/03/18 06:23: Nucleated Red Blood Cells % (auto) 0.0, Anion Gap 7L, Glomerular Filtration Rate > 60.0, Blood Urea Nitrogen 17#, Creatinine 0.78, Sodium Level 140, Potassium Level 3.6, Chloride Level 105, Carbon Dioxide Level 28, Calcium Level 8.8, Magnesium Level 2.2 CBC/BMP Laboratory Tests 07/03/18 06:23 Red Blood Count 4.86, Mean Corpuscular Volume 89.1, Mean Corpuscular Hemoglobin 28.4, Mean Corpuscular Hemoglobin Concent 31.9 L, Red Cell Distribution Width 14.1, Calcium Level 8.8 Microbiology Microbiology 07/02/18 Blood Culture - Preliminary, Resulted No growth after 24 hours . All specim... 07/02/18 Blood Culture - Preliminary, Resulted No growth after 24 hours . All specim... 07/03/18 Gram Stain, Received Pending 07/03/18 Sputum Culture, Received Pending GME ATTESTATION GME ATTESTATION My faculty preceptor for this patient encounter was physically present during the encounter and was fully available. All aspects of the patient interview, examination, medical decision making process, and medical care plan development were reviewed and approved by the faculty preceptor. The faculty preceptor is aware and concurs with the plan as stated in the body of this note and will attest to such by his/her cosignature. ATTENDING NOTE I, Charles Ashraf, have both independently examined this patient as well as reviewed the documentation. I have discussed in detail with the resident the findings and plan of treatment as documented in the residents documentation. I will continue to follow the patient and offer further guidance to the patients care as necessary during this hospital stay. YAZ SAWANT MD Jul 03, 2018 11:19 CHARLES ASHRAF MD Jul 03, 2018 18:02
[2018-07-03] MEDS: traMADol 50 MG TAB PO PRN ×2 (11:31→17:31)
[2018-07-03] MEDS: methylPREDNISolone INJ 40 MG/1 ML VIAL (J2920) IV SCH (11:31)
[2018-07-03] MEDS: KETOROLAC 30 MG/ML VIAL (J1885) IV PRN (19:55)
[2018-07-03] MEDS: ASPIRIN 81 MG ENTERIC TAB PO SCH (22:20)
[2018-07-03] MEDS: traZODone 50 MG TAB PO SCH (22:20)
[2018-07-04] MEDS: IPRATROPIUM 0.5MG/ALBUTEROL 2.5MG INH SOL UD 3ML (DUONEB)(J7620) NEB SCH ×6 (00:50→20:00)
[2018-07-04] MEDS: traMADol 50 MG TAB PO PRN ×4 (01:08→22:30)
[2018-07-04] MEDS: methylPREDNISolone INJ 40 MG/1 ML VIAL (J2920) IV SCH (01:08)
[2018-07-04 02:00] VITALS: BP 128/60
[2018-07-04 06:00] VITALS: BP 140/64
[2018-07-04 06:49] LABS: HEMATOCRIT 45.6 % (36.0-47.0); HEMOGLOBIN 14.4 g/dl (12.0-15.5); MEAN CORPUSCULAR HEMOGLOBIN 28.6 pg (27.0-33.0); MEAN CORPUSCULAR HGB CONC 31.6 g/dl (32.0-36.5); MEAN CORPUSCULAR VOLUME 90.5 fl (80.0-96.0); PLATELET COUNT, AUTOMATED 197 10^3/uL (150-450); RED BLOOD COUNT 5.04 10^6/uL (4.00-5.40); WHITE BLOOD COUNT 18.4 10^3/uL (4.0-10.0)
[2018-07-04 07:12] LABS: BLOOD UREA NITROGEN 26 MG/DL (7-18); CALCIUM LEVEL 8.8 MG/DL (8.8-10.2); CARBON DIOXIDE LEVEL 33 MEQ/L (21-32); CHLORIDE LEVEL 104 MEQ/L (98-107); CREATININE FOR GFR 0.63 MG/DL (0.55-1.30); GLOMERULAR FILTRATION RATE > 60.0 (>39); GLUCOSE, FASTING 173 MG/DL (70-100); MAGNESIUM LEVEL 2.4 MG/DL (1.8-2.4); POTASSIUM SERUM 3.7 MEQ/L (3.5-5.1); SODIUM LEVEL 140 MEQ/L (136-145)
[2018-07-04] MEDS ORDERED: ISOVUE-370 76% 100ML VIAL (Q9967) As Ordered ONE (08:07)
[2018-07-04] MEDS: ADVAIR HFA 230/21MCG INHALER INH SCH ×2 (08:24→20:55)
[2018-07-04] MEDS: GASTROGRAFIN SOLUTION 30ML PO SCH ×2 (08:45→09:28)
[2018-07-04 09:00] VITALS: BP 162/80
[2018-07-04] MEDS: ATORVASTATIN 10 MG TAB PO SCH (10:13)
[2018-07-04] MEDS: amLODIPine 5 MG TAB PO SCH (10:14)
[2018-07-04] MEDS: PANTOPRAZOLE 40MG TAB (PROTONIX) PO SCH (10:15)
[2018-07-04] MEDS: DOCUSATE SODIUM 100 MG CAP PO SCH (10:20)
[2018-07-04] MEDS: KETOROLAC 30 MG/ML VIAL (J1885) IV PRN ×2 (10:32→20:04)
--- NOTE | 2018-07-04 10:53 | IPNPDOC ---
Date Seen The patient was seen on 07/04/18. Progress Note INTERIM PROGRESS NOTE: I was called to the patient's room yesterday evening as she was complaining of 10/10 pain in her lower back. At that time a physical exam was negative for any abnormalities. She tells me she has no history of back pain or trauma to her back. My suspicion is, given the fact that she sleeps on a recliner at home since she cannot lay flat, she was experiencing muscular pain from the discomfort of the hospital bed. She was started on Toradol and Tramadol PRN. SUBJECTIVE: This morning the patient reported her pain is somewhat improved even though she still looks uncomfortable sitting on the edge of her bed. She complains of abdominal discomfort and gas and has not had a bowel movement since before admission. Otherwise, she reports her breathing has improved today. She continues on her home oxygen dose. OBJECTIVE PHYSICAL EXAMINATION: VITAL SIGNS: Please see below. GENERAL APPEARANCE: Sitting on edge of bed, appears uncomfortable, using accessory muscles of breathing HEENT: moist mucus membranes, EOMI, no thyromegaly CARDIOVASCULAR: RRR, no m/r/g, normal S1/S2 LUNGS: decreased breath sounds bilaterally with expiration>inspiration ABDOMEN: soft, nontender to palpation, +BS, no organomegaly or masses BACK: 3cm pedunculated soft mas protruding from skin in left upper back MUSCULOSKELETAL: moves all extremities well EXTREMITIES: no clubbing/cyanosis/edema NEUROLOGICAL: CN 2-12 intact without any focal deficits PSYCHIATRIC: normal mood/affect, AAOx3 LABORATORY DATA, IMAGING STUDIES, MICROBIOLOGY: Please see below. DVT prophylaxis ordered?: TEDs/Sequentials CXR: Findings: The lungs are hyperinflated consistent with COPD. There is some bibasilar fibrotic changes which are less pronounced than on the recent study of 07/02/2018 suggesting some improvement in interstitial edema pattern. Heart size is borderline. There are degenerative changes in the thoracic spine. Pulmonary vasculature is not increased. Impression: No acute infiltrate. Evidence of COPD. Bibasilar interstitial markings are somewhat improved from yesterday's radiograph. LUMBAR SPINE XR: There is no acute fracture or subluxation. The L2-3 through L5-S1 intervertebral discs are decreased in height consistent with disc generation. There is narrowing of the L4-5 and L5-S1 facet joints. IMPRESSION:Degenerative change as described above. ASSESSMENT: This is a 68 YO F with history of COPD (on 3L home o2) with over 24h shortness of breath, subjective fevers, chills in the setting of recent influenza concerning for COPD exacerbation. PLAN: 1. Acute on chronic hypoxic respiratory failure (on 24/7 oxygen at home) concerning for COPD exacerbation: -Solumedrol changed to Prednisone 40mg PO daily -c/w Inhaled therapy as ordered -Protonix 40mg PO QD -Oxygen titration for saturation 88-92%; continue with supplemental oxygen at home level of 3-4 L -COPD diet 2. Lower back pain: most likely muscular in nature -lumbar XR negative -PRN Tramadol/Toradol regimen 3. Abdominal discomfort: -CT abd with oral contrast today -Docusate for BM 4. Hypertension: -Continue Norvasc 5mg daily 5. Hyperlipidemia: -Continue Atorvastatin 10mg daily 6. Mood disorder: -Continue Trazodone PPX: TEDs/Sequentials DISPO: Pending clinical improvement VS, I&O, 24H, Fishbone Vital Signs/I&O Vital Signs Date Time Temp Pulse Resp B/P (MAP) Pulse Ox O2 Delivery O2 Flow Rate FiO2 07/04/18 10:14 84 162/80 07/04/18 09:28 16 07/04/18 08:00 3.0 07/04/18 06:00 96.8 92 07/04/18 02:00 35 07/02/18 12:15 Nasal Cannula I&O- Last 24 Hours up to 6 AM 07/04/18 06:00 Intake Total 120 ml Output Total 875 ml Balance -755 ml Laboratory Data 24H LABS Laboratory Tests 2 07/04/18 06:34: Nucleated Red Blood Cells % (auto) 0.0, Anion Gap 3L, Glomerular Filtration Rate > 60.0, Blood Urea Nitrogen 26#H, Creatinine 0.63, Sodium Level 140, Potassium Level 3.7, Chloride Level 104, Carbon Dioxide Level 33H, Calcium Level 8.8, Magnesium Level 2.4 CBC/BMP Laboratory Tests 07/04/18 06:34 Red Blood Count 5.04, Mean Corpuscular Volume 90.5, Mean Corpuscular Hemoglobin 28.6, Mean Corpuscular Hemoglobin Concent 31.6 L, Red Cell Distribution Width 14.5, Calcium Level 8.8 Microbiology Microbiology 07/02/18 Blood Culture - Preliminary, Resulted No Growth after 48 hours. All Specime... 07/02/18 Blood Culture - Preliminary, Resulted No Growth after 48 hours. All Specime... 07/03/18 Gram Stain - Final, Complete 07/03/18 Sputum Culture - Final, Complete GME ATTESTATION GME ATTESTATION My faculty preceptor for this patient encounter was physically present during the encounter and was fully available. All aspects of the patient interview, examination, medical decision making process, and medical care plan development were reviewed and approved by the faculty preceptor. The faculty preceptor is aware and concurs with the plan as stated in the body of this note and will attest to such by his/her cosignature. ATTENDING NOTE I, Charles Ashraf, have both independently examined this patient as well as reviewed the documentation. I have discussed in detail with the resident the findings and plan of treatment as documented in the residents documentation. I will continue to follow the patient and offer further guidance to the patients care as necessary during this hospital stay. YAZ SAWANT MD Jul 04, 2018 10:52 CHARLES ASHRAF MD Jul 04, 2018 13:55
--- NOTE | 2018-07-04 11:41 | REP ---
CT ABDOMEN/PELVIS WITH IV AND ORAL CONTRAST: HISTORY: Abdominal tenderness. Comparison abdominal CT study is from September 03, 2015. CT CONTRAST DOSE: 100 mL of intravenous Isovue [address] FINDINGS: Preliminary digital advanced manufacturing consultant radiograph shows gallstone in the right upper quadrant. Axial CT images demonstrate increased interstitial markings in the left lower lobe. This is new from the chest CT study of July 02, 2018 and may reflect pneumonia. Lung bases are otherwise clear. No pleural effusion or upper abdominal ascites is seen. No focal hepatic or splenic lesion is seen. A densely calcified large gallstone is visible in the gallbladder lumen. Gallstone measures 1.5 cm in greatest diameter. No pancreatic abnormalities observed. No adrenal lesion is seen on either side. The kidneys enhance symmetrically and are morphologically intact. There is an intrarenal calculus 3 mm in diameter in the lower pole of the right kidney. No hydronephrosis is seen. No retroperitoneal mass or adenopathy is seen. The aorta is normal in caliber. Small and large intestinal bowel loops are normal in the upper abdomen and pelvis. A normal appendix is observed. No uterine or ovarian abnormality is seen. Urinary bladder is unremarkable. No abdominal wall defect is observed. There is sigmoid colon diverticulosis without CT evidence of diverticulitis. IMPRESSION: Cholelithiasis. Left colonic diverticulosis without CT evidence of diverticulitis. Intrarenal nephrolithiasis right kidney without hydronephrosis. Electronically Signed by Lewis Sanchez MD 07/04/2018 12:32 P
[2018-07-04 13:48] LABS: AMORPHOUS SEDIMENT SMALL (NEGATIVE); APPEARANCE, URINE CLEAR (CLEAR); BACTERIA, URINE AUTO NEGATIVE (NEGATIVE); BILIRUBIN, URINE AUTO NEGATIVE (NEGATIVE); BLOOD, URINE BLOOD NEGATIVE (NEGATIVE); COLOR, URINE YELLOW (YELLOW); GLUCOSE, URINE (UA) AUTO NEGATIVE (NEGATIVE); KETONE, URINE AUTO NEGATIVE (NEGATIVE); LEUKOCYTE ESTERASE, URINE AUTO NEGATIVE (NEGATIVE); NITRITE, URINE AUTO NEGATIVE (NEGATIVE); PROTEIN, URINE AUTO NEGATIVE (NEGATIVE); RBC, URINE AUTO 4 /HPF (0-3); SQUAMOUS EPITHELIAL CELL UR AU 2 /HPF (0-6); UROBILINOGEN, URINE AUTO 0.2 mg/dL (0.0-2.0); WBC, URINE AUTO 3 /HPF (0-3)
[2018-07-04 14:00] VITALS: BP_SYST 164; BP_SYST 170; BP_DIAS 68; BP_DIAS 86
[2018-07-04 14:10] LABS: SPECIFIC GRAVITY URINE AUTO >1.060 (1.002-1.035)
[2018-07-04] MEDS ORDERED: predniSONE 20 MG TAB PO ONE (15:00)
[2018-07-04] MEDS: methylPREDNISolone INJ 125 MG/2 ML VIAL (J2930) IV SCH (15:03)
[2018-07-04] MEDS: LORazepam 0.5 MG TAB PO PRN (15:04)
[2018-07-04 22:00] VITALS: BP 157/78
[2018-07-04] MEDS: traZODone 50 MG TAB PO SCH (22:29)
[2018-07-04] MEDS: ASPIRIN 81 MG ENTERIC TAB PO SCH (22:29)
[2018-07-05] MEDS: IPRATROPIUM 0.5MG/ALBUTEROL 2.5MG INH SOL UD 3ML (DUONEB)(J7620) NEB SCH ×7 (00:05→23:54)
[2018-07-05] MEDS: ACETAMINOPHEN 500 MG TAB PO PRN ×2 (01:41→12:13)
[2018-07-05 02:00] VITALS: BP 175/94
[2018-07-05] MEDS: KETOROLAC 30 MG/ML VIAL (J1885) IV PRN ×2 (02:21→21:46)
[2018-07-05] MEDS: methylPREDNISolone INJ 125 MG/2 ML VIAL (J2930) IV SCH (02:21)
[2018-07-05 06:00] VITALS: BP 165/88
[2018-07-05 06:45] LABS: HEMATOCRIT 45.5 % (36.0-47.0); HEMOGLOBIN 14.9 g/dl (12.0-15.5); MEAN CORPUSCULAR HEMOGLOBIN 29.4 pg (27.0-33.0); MEAN CORPUSCULAR HGB CONC 32.7 g/dl (32.0-36.5); MEAN CORPUSCULAR VOLUME 89.7 fl (80.0-96.0); PLATELET COUNT, AUTOMATED 184 10^3/uL (150-450); RED BLOOD COUNT 5.07 10^6/uL (4.00-5.40); WHITE BLOOD COUNT 13.3 10^3/uL (4.0-10.0)
[2018-07-05 07:13] LABS: BLOOD UREA NITROGEN 23 MG/DL (7-18); CALCIUM LEVEL 8.6 MG/DL (8.8-10.2); CARBON DIOXIDE LEVEL 33 MEQ/L (21-32); CHLORIDE LEVEL 100 MEQ/L (98-107); CREATININE FOR GFR 0.62 MG/DL (0.55-1.30); GLOMERULAR FILTRATION RATE > 60.0 (>39); GLUCOSE, FASTING 162 MG/DL (70-100); MAGNESIUM LEVEL 2.7 MG/DL (1.8-2.4); POTASSIUM SERUM 3.7 MEQ/L (3.5-5.1); SODIUM LEVEL 139 MEQ/L (136-145)
[2018-07-05] MEDS: DOCUSATE SODIUM 100 MG CAP PO SCH (08:38)
[2018-07-05] MEDS: traMADol 50 MG TAB PO PRN ×2 (08:38→14:44)
[2018-07-05] MEDS: PANTOPRAZOLE 40MG TAB (PROTONIX) PO SCH (08:38)
[2018-07-05] MEDS: ATORVASTATIN 10 MG TAB PO SCH (08:39)
[2018-07-05] MEDS: amLODIPine 5 MG TAB PO SCH (08:39)
[2018-07-05] MEDS ORDERED: predniSONE 20 MG TAB PO SCH (09:00)
[2018-07-05] MEDS: ADVAIR HFA 230/21MCG INHALER INH SCH ×2 (09:00→21:00)
[2018-07-05 10:00] VITALS: BP 181/85
--- NOTE | 2018-07-05 10:39 | IPNPDOC ---
Date Seen The patient was seen on 07/05/18. Progress Note SUBJECTIVE: The patient is observed seated in her bedside chair eating breakfast this morning. She appears to be doing much better today. She states her back pain has improved and she was able to bathe and have a bowel movement yesterday. The results of her CT scan are discussed with her. She is willing to work with PT/OT today and, once she gets cleared, is ready to return home. Otherwise, her breathing is back to baseline. She has no other complaints this morning. OBJECTIVE PHYSICAL EXAMINATION: VITAL SIGNS: Please see below. GENERAL APPEARANCE: Sitting in bedside chair, appears comfortable HEENT: moist mucus membranes, EOMI, no thyromegaly CARDIOVASCULAR: RRR, no m/r/g, normal S1/S2 LUNGS: decreased breath sounds bilaterally with expiration>inspiration ABDOMEN: soft, nontender to palpation, +BS, no organomegaly or masses BACK: 3cm pedunculated soft mas protruding from skin in left upper back MUSCULOSKELETAL: moves all extremities well EXTREMITIES: no clubbing/cyanosis/edema NEUROLOGICAL: CN 2-12 intact without any focal deficits PSYCHIATRIC: normal mood/affect, AAOx3 LABORATORY DATA, IMAGING STUDIES, MICROBIOLOGY: Please see below. DVT prophylaxis ordered?: TEDs/Sequentials CXR: Findings: The lungs are hyperinflated consistent with COPD. There is some bibasilar fibrotic changes which are less pronounced than on the recent study of 07/02/2018 suggesting some improvement in interstitial edema pattern. Heart size is borderline. There are degenerative changes in the thoracic spine. Pulmonary vasculature is not increased. Impression: No acute infiltrate. Evidence of COPD. Bibasilar interstitial markings are somewhat improved from yesterday's radiograph. LUMBAR SPINE XR: There is no acute fracture or subluxation. The L2-3 through L5-S1 intervertebral discs are decreased in height consistent with disc generation. There is narrowing of the L4-5 and L5-S1 facet joints. IMPRESSION:Degenerative change as described above. ASSESSMENT: This is a 68 YO F with history of COPD (on 3L home o2) with over 24h shortness of breath, subjective fevers, chills in the setting of recent influenza concerning for COPD exacerbation. PLAN: 1. Acute on chronic hypoxic respiratory failure (on 24/7 oxygen at home) concerning for COPD exacerbation: -Prednisone 40mg daily -c/w Inhaled therapy as ordered -Protonix 40mg PO QD -Oxygen titration for saturation 88-92%; continue with supplemental oxygen at home level of 3-4 L -COPD diet 2. Lower back pain: most likely muscular in nature -lumbar XR negative -PRN Tramadol/Toradol regimen 3. Abdominal discomfort: -CT abd with oral contrast today -Docusate for BM 4. Hypertension: -Continue Norvasc 5mg daily 5. Hyperlipidemia: -Continue Atorvastatin 10mg daily 6. Mood disorder: -Continue Trazodone PPX: TEDs/Sequentials DISPO: Pending PT/OT clearance VS, I&O, 24H, Fishbone Vital Signs/I&O Vital Signs Date Time Temp Pulse Resp B/P (MAP) Pulse Ox O2 Delivery O2 Flow Rate FiO2 07/05/18 09:32 3.0 89 07/05/18 08:39 91 165/88 07/05/18 08:38 16 07/05/18 06:00 96.4 97 07/02/18 12:15 Nasal Cannula I&O- Last 24 Hours up to 6 AM 07/05/18 06:00 Intake Total 900 ml Balance 900 ml Laboratory Data 24H LABS Laboratory Tests 2 07/04/18 13:20: Urine Appearance CLEAR, Urine Color YELLOW, Urine pH 7.0, Urine Specific [place] >1.060H, Urine Protein NEGATIVE, Urine Glucose (UA) NEGATIVE, Urine Ketones NEGATIVE, Urine Urobilinogen 0.2, Urine Bilirubin NEGATIVE, Urine Leukocyte Esterase NEGATIVE, Urine Blood NEGATIVE, Urine Nitrite NEGATIVE, Urine WBC (Auto) 3, Urine RBC (Auto) 4H, Urine Hyaline Casts (Auto) 0, Urine Bacteria (A uto) NEGATIVE, Urine Squamous Epithelial Cells 2, Urine Amorphous Sediment SMALLH, Urine Sperm (Auto) 07/04/18 17:02: Bedside Glucose (Misc Panel) 182H 07/04/18 20:59: Bedside Glucose (Misc Panel) 169H 07/05/18 06:29: Nucleated Red Blood Cells % (auto) 0.0, Anion Gap 6L, Glomerular Filtration Rate > 60.0, Blood Urea Nitrogen 23H, Creatinine 0.62, Sodium Level 139, Potassium Level 3.7, Chloride Level 100, Carbon Dioxide Level 33H, Calcium Level 8.6L, Magnesium Level 2.7H CBC/BMP Laboratory Tests 07/05/18 06:29 Red Blood Count 5.07, Mean Corpuscular Volume 89.7, Mean Corpuscular Hemoglobin 29.4, Mean Corpuscular Hemoglobin Concent 32.7, Red Cell Distribution Width 14.4, Calcium Level 8.6 L Microbiology Microbiology 07/02/18 Blood Culture - Preliminary, Resulted No Growth after 72 hours. All specime... 07/02/18 Blood Culture - Preliminary, Resulted No Growth after 72 hours. All specime... 07/03/18 Gram Stain - Final, Complete 07/03/18 Sputum Culture - Final, Complete GME ATTESTATION GME ATTESTATION My faculty preceptor for this patient encounter was physically present during the encounter and was fully available. All aspects of the patient interview, examination, medical decision making process, and medical care plan development were reviewed and approved by the faculty preceptor. The faculty preceptor is aware and concurs with the plan as stated in the body of this note and will attest to such by his/her cosignature. ATTENDING NOTE I, Charles Ashraf, have both independently examined this patient as well as reviewed the documentation. I have discussed in detail with the resident the findings and plan of treatment as documented in the residents documentation. I will continue to follow the patient and offer further guidance to the patients care as necessary during this hospital stay. YAZ SAWANT MD Jul 05, 2018 10:39 CHARLES ASHRAF MD Jul 05, 2018 15:29
[2018-07-05] MEDS: predniSONE 20 MG TAB PO SCH (11:03)
[2018-07-05 14:00] VITALS: BP 183/77
[2018-07-05] MEDS ORDERED: PERCOCET 5MG/325MG TAB PO ONE (17:15)
[2018-07-05] MEDS: LORazepam 0.5 MG TAB PO PRN (18:03)
[2018-07-05] MEDS ORDERED: MORPHINE 4 MG/ML 1ML VIAL/SYRINGE (J2270) IV PRN (19:00)
[2018-07-05] MEDS ORDERED: MORPHINE 4 MG/ML 1ML VIAL/SYRINGE (J2270) IV ONE (19:00)
[2018-07-05] MEDS ORDERED: ONDANSETRON 4MG/2ML VIAL (J2405) IV ONE (20:00)
[2018-07-05] MEDS ORDERED: FENTANYL REMOVAL DOCUMENTATION MISC XX SCH (20:15)
--- NOTE | 2018-07-05 20:25 | REP ---
Chest one-view HISTORY: Shortness of breath Comparison: 07/03/2018 An increase in interstitial markings is present in the lower lobes consistent with chronic interstitial fibrosis. Patchy density is present in the right lower lobe consistent with atelectasis or infiltrate. The heart is normal in size. The pulmonary vasculature is normal in appearance. Impression: 1. Right lower lobe atelectasis or infiltrate. 2. Bibasilar chronic interstitial fibrosis. Electronically Signed by Janes Benites MD 07/05/2018 08:16 P
[2018-07-05 20:28] LABS: ABG BASE EXCESS 4.5 (-2.0-2.0); ABG HCO3 29.3 MEQ/L (22.0-26.0); ABG O2 SATURATION 89.6 % (95.0-99.0); ABG PARTIAL PRESSURE O2 55.7 mmHg (75.0-100.0); ABG STANDARD HCO3 28.2 MEQ/L (22.0-26.0); ABG TOTAL CO2 30.6 MEQ/L (23.0-31.0); ABG pH (ARTERIAL) 7.441 UNITS (7.350-7.450)
[2018-07-05] MEDS: CYCLOBENZAPRINE 5MG TABLET PO PRN (21:10)
[2018-07-05] MEDS: traZODone 50 MG TAB PO SCH (21:11)
[2018-07-05] MEDS: ASPIRIN 81 MG ENTERIC TAB PO SCH (21:11)
[2018-07-05] MEDS: METOCLOPRAMIDE INJ 10MG/2ML VIAL (J2765) IV PRN (21:13)
--- NOTE | 2018-07-05 21:38 | IPNPDOC ---
Text Note Date of Service The patient was seen on 07/05/18. NOTE NIGHT FLOAT NOTE Called ~7:30pm for respiratory concerns after pt was being transported back from imaging. Chart reviewed and examined at bedside. Per reports, she has been complaining of back pain and was due to get spinal imaging, which she did not tolerate due to pain exacerbated by laying flat. Thus, she imaging was not done and she was being transported back to floor, when nursing noted she was turning purple. On exam, noted to be in mild distress, tachypnic ~30s, in sinus tachycardic ~120, requiring increased O2 from her baseline 4L to 7L now. Otherw ise is afebrile, lungs sound distant without any adventitious sounds, pt has pursed-lip breathing but this is reportedly normal for her. RRR, no edema. Well- perfused extremities. She is noted to vomit small chunk of food and dry heaving for most of exam, but able to verbalize 1-2 words in between heavy breathing. Stat CXR at beds suggests infiltrate/haziness b/l bases, r>l. No notable effusion. ABG unremarkable and unchanged from prior. Suspicion is for acute on chronic hypoxia 2/2 aspiration [from n/v induced by morphine]. She has been placed on aspiration precautions and started on IV abx for concern of this developing into PNA, especially given her acute COPD exacerbation she is actively being treated for, baseline respiratory compromise, and infiltrate on imaging. Will f/u with labs and monitor continuous pulse ox. Reglan for n/v. Pain meds have been adjusted: Per staff, pain was well-controlled with Toradol, which has been restarted, as she has only received it for 2 days. Unable to give Fentanyl patch on this floor. Morphine d/c'ed for n/v-consider resuming at lower dose if needed. Percocet also remains an option-pt was due for 1st dose earlier today, but it fell on floor and was not taken. Updated family in waiting area [2 nieces, , granddaughter, and sister]. Pt reassessed at bedside and states her breathing is better, weaned down to 6L. Resting comfortably, NAD, no longer tachypneic. Will consider returning for spinal imaging once respiratory status improves. A-FIB/CHADSVASC A-FIB History Current/History of A-Fib/PAF?: No VS,Fishbone, I+O VS, Fishbone, I+O Laboratory Tests 07/05/18 06:29 Red Blood Count 5.07, Mean Corpuscular Volume 89.7, Mean Corpuscular Hemoglobin 29.4, Mean Corpuscular Hemoglobin Concent 32.7, Red Cell Distribution Width 14.4, Calcium Level 8.6 L Vital Signs Date Time Temp Pulse Resp B/P (MAP) Pulse Ox O2 Delivery O2 Flow Rate FiO2 07/05/18 19:04 16 07/05/18 14:00 97.1 95 183/77 (112) 87 3.0 07/05/18 09:32 89 07/02/18 12:15 Nasal Cannula I&O- Last 24 Hours up to 6 AM 07/05/18 06:00 Intake Total 900 ml Balance 900 ml GME ATTESTATION GME ATTESTATION My faculty preceptor for this patient encounter was physically present during the encounter and was fully available. All aspects of the patient interview, examination, medical decision making process, and medical care plan development were reviewed and approved by the faculty preceptor. The faculty preceptor is aware and concurs with the plan as stated in the body of this note and will attest to such by his/her cosignature. LYNDA STEPHEN DO Jul 05, 2018 21:38
[2018-07-05] MEDS: AMPICILLIN SOD/SULBACTAM SOD 1.5 GM in D5W MINI-BAG PLUS 50 ML IV SCH (21:46)
[2018-07-05 23:22] VITALS: BP 152/86
[2018-07-06 02:00] VITALS: BP 176/80
[2018-07-06] MEDS ORDERED: fentaNYL 75 MCG/HR PATCH TOP SCH (03:00)
[2018-07-06] MEDS: IPRATROPIUM 0.5MG/ALBUTEROL 2.5MG INH SOL UD 3ML (DUONEB)(J7620) NEB SCH ×6 (03:34→22:55)
[2018-07-06] MEDS: AMPICILLIN SOD/SULBACTAM SOD 1.5 GM in D5W MINI-BAG PLUS 50 ML IV SCH ×4 (03:49→21:04)
[2018-07-06] MEDS: KETOROLAC 30 MG/ML VIAL (J1885) IV PRN ×3 (03:49→23:14)
[2018-07-06] MEDS: ACETAMINOPHEN 500 MG TAB PO PRN (04:46)
[2018-07-06] MEDS: CYCLOBENZAPRINE 5MG TABLET PO PRN (04:46)
[2018-07-06 06:00] VITALS: BP 177/84
[2018-07-06 06:39] LABS: HEMOGLOBIN 15.1 g/dl (12.0-15.5); MEAN CORPUSCULAR HEMOGLOBIN 29.4 pg (27.0-33.0); MEAN CORPUSCULAR HGB CONC 32.8 g/dl (32.0-36.5); MEAN CORPUSCULAR VOLUME 89.5 fl (80.0-96.0); PLATELET COUNT, AUTOMATED 182 10^3/uL (150-450); RED BLOOD COUNT 5.14 10^6/uL (4.00-5.40); WHITE BLOOD COUNT 15.1 10^3/uL (4.0-10.0)
[2018-07-06 07:00] LABS: BLOOD UREA NITROGEN 28 MG/DL (7-18); C REACTIVE PROTEIN QUANTITATIV 2.77 MG/DL (0.00-0.30); CALCIUM LEVEL 8.4 MG/DL (8.8-10.2); CARBON DIOXIDE LEVEL 32 MEQ/L (21-32); CHLORIDE LEVEL 100 MEQ/L (98-107); CREATININE FOR GFR 0.58 MG/DL (0.55-1.30); GLOMERULAR FILTRATION RATE > 60.0 (>39); GLUCOSE, FASTING 123 MG/DL (70-100); MAGNESIUM LEVEL 2.5 MG/DL (1.8-2.4); POTASSIUM SERUM 3.5 MEQ/L (3.5-5.1); SODIUM LEVEL 137 MEQ/L (136-145)
[2018-07-06] MEDS: ADVAIR HFA 230/21MCG INHALER INH SCH ×2 (08:21→20:44)
[2018-07-06 08:51] VITALS: BP 156/73
[2018-07-06] MEDS: amLODIPine 5 MG TAB PO SCH (08:54)
[2018-07-06] MEDS: predniSONE 20 MG TAB PO SCH (08:54)
[2018-07-06] MEDS: ATORVASTATIN 10 MG TAB PO SCH (08:54)
[2018-07-06] MEDS: CYCLOBENZAPRINE 5MG TABLET PO SCH ×2 (08:54→21:04)
[2018-07-06] MEDS: PANTOPRAZOLE 40MG TAB (PROTONIX) PO SCH (08:55)
[2018-07-06] MEDS: DOCUSATE SODIUM 100 MG CAP PO SCH (08:55)
--- NOTE | 2018-07-06 09:55 | IPNPDOC ---
Date Seen The patient was seen on 07/06/18. Progress Note SUBJECTIVE: Patient had difficulty with laying flat for her CT scan yesterday. Her back had been in more pain yesterday and she was offered IV morphine, which made her nauseous. She reports she was gagging and bringing up "stomach acid" and there was concern that while she was laying flat in the scanner she may have aspirated. She now has a productive cough but is back down to her home dose of 3L O2 saturating around 94%. She reports only 2/10 pain in her lower back and she states her breathing is back to normal. She looks comfortable laying in bed this morning. She was offered to try again for a CT spine or MRI, but she refused, saying that she is very uncomfortable laying flat and does not wish to try again. OBJECTIVE PHYSICAL EXAMINATION: VITAL SIGNS: Please see below. GENERAL APPEARANCE: laying in bed, appears comfortable HEENT: moist mucus membranes, EOMI, no thyromegaly CARDIOVASCULAR: RRR, no m/r/g, normal S1/S2 LUNGS: decreased breath sounds bilaterally with expiration>inspiration, some faint rales heard in the middle and upper lobes ABDOMEN: soft, nontender to palpation, +BS, no organomegaly or masses BACK: 3cm pedunculated soft mas protruding from skin in left upper back MUSCULOSKELETAL: moves all extremities well EXTREMITIES: no clubbing/cyanosis/edema NEUROLOGICAL: CN 2-12 intact without any focal deficits PSYCHIATRIC: normal mood/affect, AAOx3 LABORATORY DATA, IMAGING STUDIES, MICROBIOLOGY: Please see below. DVT prophylaxis ordered?: TEDs/Sequentials CXR: An increase in interstitial markings is present in the lower lobes consistent with chronic interstitial fibrosis. Patchy density is present in the right lower lobe consistent with atelectasis or infiltrate. The heart is normal in size. The pulmonary vasculature is normal in appearance. Impression: 1. Right lower lobe atelectasis or infiltrate. 2. Bibasilar chronic interstitial fibrosis. ASSESSMENT: This is a 68 YO F with history of COPD (on 3L home o2) with over 24h shortness of breath, subjective fevers, chills in the setting of recent influenza concerning for COPD exacerbation. Her clinical course is complicated by lower back pain and inability to obtain more imaging 2/2 inability to lay flat and concern for aspiration. PLAN: 1. Acute on chronic hypoxic respiratory failure (on 24/7 oxygen at home) concerning for COPD exacerbation: concern for aspiration yesterday as she was to lay flat for her CT scan -CXR taken after possible aspiration concerning for infiltrate. Patient started on Unasyn for empiric coverage -ABG found to be 7.441/44/55 -Sputum culture repeated and pending -Aspiration precautions -continue Prednisone 40mg daily -c/w Inhaled therapy as ordered -Encourage use of IS -Oxygen titration for saturation 88-92%; continue with supplemental oxygen at home level of 3-4 L -COPD diet - Will trend CRP 2. Lower back pain: Patient does not wish to try again for CT scan or MRI at this time -lumbar XR negative -s/p Morphine; patient experienced nausea from this medication -Continue Toradol 15mg Q6H -Flexeril 10mg BID 3. Abdominal discomfort - possibly 2/2 constipation - Has had BM yesterday -CT abd with oral contrast demonstrated left colonic diverticulosis without diverticulitis. Small 3mm R kidney stone without hydronephrosis -Docusate for BM 4. Hypertension: -Continue Norvasc 5mg daily 5. Hyperlipidemia: -Continue Atorvastatin 10mg daily 6. Mood disorder: -Continue Trazodone 7. GI ppx: -Protonix 40mg PO QD 6. DVT prophylaxis - c/w TEDs/Sequentials - Will start Lovenox DISPO: Pending PT/OT clearance VS, I&O, 24H, Fishbone Vital Signs/I&O Vital Signs Date Time Temp Pulse Resp B/P (MAP) Pulse Ox O2 Delivery O2 Flow Rate FiO2 07/06/18 08:54 94 156/73 07/06/18 08:51 99.6 20 94 3.0 07/05/18 09:32 89 07/02/18 12:15 Nasal Cannula I&O- Last 24 Hours up to 6 AM 07/06/18 06:00 Intake Total 650 ml Output Total 450 ml Balance 200 ml Laboratory Data 24H LABS Laboratory Tests 2 07/05/18 11:46: Bedside Glucose (Misc Panel) 197H 07/05/18 17:04: Bedside Glucose (Misc Panel) 164H 07/05/18 20:22: Blood Gas Bicarbonate Standard 28.2H, Arterial Blood pH 7.441, Arterial Blood Partial Pressure CO2 44.0, Arterial Blood Partial Pressure O2 55.7L, Arterial Blood Total CO2 30.6, Arterial Blood HCO3 29.3H, Arterial Blood Base Excess 4.5H, Arterial Blood Oxygen Saturation 89.6L 07/05/18 21:35: Bedside Glucose (Misc Panel) 163H 07/06/18 06:22: Nucleated Red Blood Cells % (auto) 0.0, Anion Gap 5L, Glomerular Filtration Rate > 60.0, Blood Urea Nitrogen 28H, Creatinine 0.58, Sodium Level 137, Potassium Level 3.5, Chloride Level 100, Carbon Dioxide Level 32, Calcium Level 8.4L, Magn esium Level 2.5H, C-Reactive Protein, Quantitative 2.77H CBC/BMP Laboratory Tests 07/06/18 06:22 Red Blood Count 5.14, Mean Corpuscular Volume 89.5, Mean Corpuscular Hemoglobin 29.4, Mean Corpuscular Hemoglobin Concent 32.8, Red Cell Distribution Width 14.0, Calcium Level 8.4 L Microbiology Microbiology 07/02/18 Blood Culture - Preliminary, Resulted No Growth after 72 hours. All specime... 07/02/18 Blood Culture - Preliminary, Resulted No Growth after 72 hours. All specime... 07/03/18 Gram Stain - Final, Complete 07/03/18 Sputum Culture - Final, Complete GME ATTESTATION GME ATTESTATION My faculty preceptor for this patient encounter was physically present during t he encounter and was fully available. All aspects of the patient interview, examination, medical decision making process, and medical care plan development were reviewed and approved by the faculty preceptor. The faculty preceptor is aware and concurs with the plan as stated in the body of this note and will attest to such by his/her cosignature. ATTENDING NOTE I, Charles Ashraf, have both independently examined this patient as well as reviewed the documentation. I have discussed in detail with the resident the findings and plan of treatment as documented in the residents documentation. I will continue to follow the patient and offer further guidance to the patients care as necessary during this hospital stay. YAZ SAWANT MD Jul 06, 2018 09:55 CHARLES ASHRAF MD Jul 06, 2018 15:45
[2018-07-06 10:00] VITALS: BP 146/85
[2018-07-06 14:00] VITALS: BP 132/78
[2018-07-06] MEDS: hydrOXYzine 50 MG TAB PO PRN ×2 (15:14→23:14)
[2018-07-06] MEDS: ENOXAPARIN 40 MG/0.4 ML SYRINGE (J1650) SC SCH (16:11)
[2018-07-06] MEDS: SODIUM CHLORIDE NASAL 0.65% SPRAY BTL (OCEAN) PRN (21:03)
[2018-07-06] MEDS: traZODone 50 MG TAB PO SCH (21:04)
[2018-07-06] MEDS: ASPIRIN 81 MG ENTERIC TAB PO SCH (21:04)
[2018-07-06 22:00] VITALS: BP 164/80
[2018-07-07 02:00] VITALS: BP 138/83
[2018-07-07] MEDS: AMPICILLIN SOD/SULBACTAM SOD 1.5 GM in D5W MINI-BAG PLUS 50 ML IV SCH ×4 (03:26→21:29)
[2018-07-07] MEDS: IPRATROPIUM 0.5MG/ALBUTEROL 2.5MG INH SOL UD 3ML (DUONEB)(J7620) NEB SCH ×5 (03:45→20:00)
[2018-07-07 06:00] VITALS: BP 120/84
[2018-07-07] MEDS: ADVAIR HFA 230/21MCG INHALER INH SCH ×2 (08:49→20:50)
[2018-07-07] MEDS: hydrOXYzine 50 MG TAB PO PRN (09:10)
[2018-07-07] MEDS: CYCLOBENZAPRINE 5MG TABLET PO SCH ×2 (09:10→21:29)
[2018-07-07] MEDS: ATORVASTATIN 10 MG TAB PO SCH (09:10)
[2018-07-07] MEDS: predniSONE 20 MG TAB PO SCH (09:10)
[2018-07-07] MEDS: KETOROLAC 30 MG/ML VIAL (J1885) IV PRN ×2 (09:10→18:49)
[2018-07-07] MEDS: amLODIPine 5 MG TAB PO SCH (09:11)
[2018-07-07] MEDS: ENOXAPARIN 40 MG/0.4 ML SYRINGE (J1650) SC SCH (09:11)
[2018-07-07] MEDS: PANTOPRAZOLE 40MG TAB (PROTONIX) PO SCH (09:11)
[2018-07-07] MEDS: DOCUSATE SODIUM 100 MG CAP PO SCH (09:11)
[2018-07-07 10:00] VITALS: BP 128/76
[2018-07-07] MEDS ORDERED: LACTULOSE 20 GM/30 ML SYRUP UD PO SCH (12:00)
[2018-07-07 14:00] VITALS: BP 144/68
--- NOTE | 2018-07-07 14:01 | IPNPDOC ---
Text Note Date of Service The patient was seen on 07/07/18. NOTE Subjective: Patient is a 68-year-old female with a PMHx of Metabolic syndrome, HTN, DLP, End stage COPD with O2 dependence (3-5 L), Diverticulosis, Tobacco abuse, Osteoporosis who presented to the ER with complaints of shortness of breath, associated with wheezing and cough. Patient was admitted to the hospital service for further evaluation and treatment. Patient was seen and examined at the bedside. Currently, she reports that her back pain is doing better. Again asked her about the potential for MRI; she reports that she does not want to pursue this at this time. Denies any chest pain, palpitations. Reports improvement in her breathing, still with a mild cough, however, is unable to expectorate anything for a sputum sample. Denies any nausea, vomiting, abdominal pain, constipation, diarrhea, or urinary discomfort. Objective: Vitals (See below) General: Lying in bed, no acute distress, comfortable, AAOx3 HEENT: NC, AT CVS: RRR, +S1S2 Lungs: Fair air entry b/l, no appreciable wheezing with rhonchi Abdomen: Soft, distended without tenderness Extremities: - Edema, - Calf tenderness Back: Muscle tenderness on light palpation of paraspinal muscle groups around T12 - L3 area Assessment and plan: Shortness of breath - likely 2/2 acute COPD exacerbation; possibly 2/2 aspiration pneumonia - Currently, patient reports that her breathing is doing much better; denies any significant expectoration - Remains afebrile and hemodynamically stable - Mild leukocytosis - likely 2/2 corticosteroid use - Sputum culture 07/03: Negative; Unable to provide additional sputum sample sinc e possible aspiration on 07/05 - CTA chest 07/02: No CT evidence of pulmonary embolus. Hyperinflation COPD with emphysematous changes. Otherwise no acute disease seen. - CXR 07/05: 1. Right lower lobe atelectasis or infiltrate. 2. Bibasilar chronic interstitial fibrosis. - Has been started on Unasyn (Day #3) - c/w Prednisone; will begin to taper - c/w incentive spirometry - c/w Inhaled therapy as ordered Intractable back pain - likely 2/2 musculoskeletal etiology - likely with muscle spasms - Patient currently does not experience any focal neurologic deficits; has full strength of her lower extremities - Patient currently does not want to pursue an MRI; risks and benefits have been discussed - c/w Flexeril and Ketorolac Constipation - Continue with bowel regimen as ordered - Will add lactulose on a scheduled dosing and titrate to one to 2 bowel movements daily Urinary retention - possibly 2/2 constipation - Will c/w Bladder scans and straight cath if required - Will correct constipation symptoms before pursuing further interventions Metabolic syndrome HTN - BP well controlled - c/w Amlodipine DLP - c/w Atorvastatin and ASA Diverticulosis - No episodes currently Tobacco abuse - Quit smoking 20 years ago Osteoporosis - Patient has been on Alendronate since 2012 - DEXA 08/2015 Mood disorder / Anxiety / Insomnia - c/w Trazodone - c/w Hydroxyzine for episodes of anxiety GI prophylaxis - c/w Protonix DVT prophylaxis - c/w Lovenox Disposition: - Will c/w PT until cleared for DC home VS,Fishbone, I+O VS, Fishbone, I+O Vital Signs Date Time Temp Pulse Resp B/P (MAP) Pulse Ox O2 Delivery O2 Flow Rate FiO2 07/07/18 09:11 107 120/84 07/07/18 09:00 3.0 07/07/18 06:00 96.4 20 93 07/05/18 09:32 89 07/02/18 12:15 Nasal Cannula I&O- Last 24 Hours up to 6 AM 07/07/18 05:59 Intake Total 1560 ml Output Total 1300 ml Balance 260 ml SHAYLEE ASHRAF MD Jul 07, 2018 14:01
[2018-07-07] MEDS: LACTULOSE 20 GM/30 ML SYRUP UD PO SCH (17:33)
[2018-07-07 18:00] VITALS: BP 168/82
[2018-07-07] MEDS: traZODone 50 MG TAB PO SCH (21:29)
[2018-07-07] MEDS: ASPIRIN 81 MG ENTERIC TAB PO SCH (21:29)
[2018-07-07 22:00] VITALS: BP 136/82
[2018-07-08] MEDS: IPRATROPIUM 0.5MG/ALBUTEROL 2.5MG INH SOL UD 3ML (DUONEB)(J7620) NEB SCH ×7 (00:37→23:27)
[2018-07-08] MEDS: LACTULOSE 20 GM/30 ML SYRUP UD PO SCH ×5 (00:47→23:38)
[2018-07-08] MEDS: KETOROLAC 30 MG/ML VIAL (J1885) IV PRN (01:10)
[2018-07-08] MEDS: hydrOXYzine 50 MG TAB PO PRN ×2 (01:10→23:38)
[2018-07-08 02:00] VITALS: BP 140/86
[2018-07-08] MEDS: AMPICILLIN SOD/SULBACTAM SOD 1.5 GM in D5W MINI-BAG PLUS 50 ML IV SCH ×4 (04:56→22:52)
[2018-07-08 06:00] VITALS: BP 140/86
[2018-07-08 06:08] LABS: HEMATOCRIT 46.2 % (36.0-47.0); HEMOGLOBIN 14.5 g/dl (12.0-15.5); MEAN CORPUSCULAR HEMOGLOBIN 28.5 pg (27.0-33.0); MEAN CORPUSCULAR HGB CONC 31.4 g/dl (32.0-36.5); MEAN CORPUSCULAR VOLUME 90.8 fl (80.0-96.0); PLATELET COUNT, AUTOMATED 203 10^3/uL (150-450); RED BLOOD COUNT 5.09 10^6/uL (4.00-5.40); WHITE BLOOD COUNT 11.8 10^3/uL (4.0-10.0)
[2018-07-08 06:32] LABS: BLOOD UREA NITROGEN 37 MG/DL (7-18); C REACTIVE PROTEIN QUANTITATIV 1.55 MG/DL (0.00-0.30); CALCIUM LEVEL 9.4 MG/DL (8.8-10.2); CARBON DIOXIDE LEVEL 40 MEQ/L (21-32); CHLORIDE LEVEL 102 MEQ/L (98-107); CREATININE FOR GFR 0.61 MG/DL (0.55-1.30); GLOMERULAR FILTRATION RATE > 60.0 (>39); GLUCOSE, FASTING 122 MG/DL (70-100); POTASSIUM SERUM 3.6 MEQ/L (3.5-5.1); SODIUM LEVEL 144 MEQ/L (136-145)
[2018-07-08] MEDS: ADVAIR HFA 230/21MCG INHALER INH SCH ×2 (08:22→21:15)
[2018-07-08] MEDS: amLODIPine 5 MG TAB PO SCH (10:06)
[2018-07-08] MEDS: CYCLOBENZAPRINE 5MG TABLET PO SCH ×2 (10:06→20:42)
[2018-07-08] MEDS: ATORVASTATIN 10 MG TAB PO SCH (10:07)
[2018-07-08] MEDS: predniSONE 20 MG TAB PO SCH (10:07)
[2018-07-08] MEDS: PANTOPRAZOLE 40MG TAB (PROTONIX) PO SCH (10:07)
[2018-07-08] MEDS: DOCUSATE SODIUM 100 MG CAP PO SCH (10:07)
[2018-07-08] MEDS: ENOXAPARIN 40 MG/0.4 ML SYRINGE (J1650) SC SCH (10:08)
--- NOTE | 2018-07-08 11:47 | REP ---
A [facility] one-view History: Abdominal pain Comparison: CT 07/04/2018 A small amount of contrast material is present in the the colon from a recent CT examination. Air is present in small and large intestine. There is mild distension of descending transverse and descending colon. There are no air-fluid levels. There is no pneumoperitoneum. Impression: Nonspecific bowel gas pattern. Electronically Signed by Janes Benites MD 07/08/2018 11:38 A
--- NOTE | 2018-07-08 12:19 | IPNPDOC ---
Text Note Date of Service The patient was seen on 07/08/18. NOTE Subjective: Patient is a 68-year-old female with a PMHx of Metabolic syndrome, HTN, DLP, End stage COPD with O2 dependence (3-5 L), Diverticulosis, Tobacco abuse, Osteoporosis who presented to the ER with complaints of shortness of breath, associated with wheezing and cough. Patient was admitted to the hospital service for further evaluation and treatment. Patient was seen and examined at the bedside. . Currently, patient reports her back pain is doing better. Reports improvement in breathing and only notes a mild cough. Denies any palpitations. Denies any N/V. Reports mild nausea, Objective: Vitals (See below) General: Lying in bed, no acute distress, comfortable, AAOx3 HEENT: NC, AT CVS: RRR, +S1S2 Lungs: Air entry is fair bilaterally without evidence of wheezing, rhonchi or rales Abdomen: Soft without distention or tenderness Extremities: - Edema, - Calf tenderness Back: Improvement in muscle tenderness on mid/low back Assessment and plan: Shortness of breath - likely 2/2 acute COPD exacerbation; possibly 2/2 aspiration pneumonia - Currently, patient reports that her breathing is doing much better; denies any significant expectoration - Remains afebrile and hemodynamically stable - Mild leukocytosis - likely 2/2 corticosteroid use - Sputum culture 07/03: Negative; Unable to provide additional sputum sample since possible aspiration on 07/05 - CTA chest 07/02: No CT evidence of pulmonary embolus. Hyperinflation COPD with emphysematous changes. Otherwise no acute disease seen. - CXR 07/05: 1. Right lower lobe atelectasis or infiltrate. 2. Bibasilar chronic interstitial fibrosis. - Has been started on Unasyn (Day #4) - c/w Prednisone; will begin to taper - c/w incentive spirometry - c/w Inhaled therapy as ordered Intractable back pain - likely 2/2 musculoskeletal etiology - likely with muscle spasms - Patient currently does not experience any focal neurologic deficits; has full strength of her lower extremities - Patient currently does not want to pursue an MRI; risks and benefits have been discussed - c/w Flexeril and Ketorolac Constipation - Continue with bowel regimen as ordered - XR abdomen 07/08: Nonspecific bowel gas pattern. - c/w lactulose on a scheduled dosing and titrate to one to 2 bowel movements daily - Will provide suppository today Urinary retention - possibly 2/2 constipation - Will c/w Bladder scans and straight cath if required - Will correct constipation symptoms before pursuing further interventions Metabolic syndrome HTN - BP well controlled - c/w Amlodipine DLP - c/w Atorvastatin and ASA Diverticulosis - No episodes currently Tobacco abuse - Quit smoking 20 years ago Osteoporosis - Patient has been on Alendronate since 2012 - DEXA 08/2015 Mood disorder / Anxiety / Insomnia - c/w Trazodone - c/w Hydroxyzine for episodes of anxiety GI prophylaxis - c/w Protonix DVT prophylaxis - c/w Lovenox Disposition: - Will c/w PT and OT until cleared for DC home VS,Fishbone, I+O VS, Fishbone, I+O Laboratory Tests 07/08/18 05:44 Red Blood Count 5.09, Mean Corpuscular Volume 90.8, Mean Corpuscular Hemoglobin 28.5, Mean Corpuscular Hemoglobin Concent 31.4 L, Red Cell Distribution Width 13.8, Calcium Level 9.4 Vital Signs Date Time Temp Pulse Resp B/P (MAP) Pulse Ox O2 Delivery O2 Flow Rate FiO2 07/08/18 10:06 89 138/82 07/08/18 07:55 4.0 07/08/18 06:00 96.9 20 92 07/05/18 09:32 89 07/02/18 12:15 Nasal Cannula I&O- Last 24 Hours up to 6 AM 07/08/18 06:00 Intake Total 1360 ml Output Total 1200 ml Balance 160 ml SHAYLEE ASHRAF MD Jul 08, 2018 12:19
[2018-07-08] MEDS: ACETAMINOPHEN 500 MG TAB PO PRN ×2 (12:34→22:52)
[2018-07-08] MEDS: BISACODYL 10 MG SUPP PR PRN (13:54)
[2018-07-08 14:00] VITALS: BP 138/82
[2018-07-08] MEDS ORDERED: FLEET ENEMA PR ONE (18:00)
[2018-07-08] MEDS: SODIUM CHLORIDE NASAL 0.65% SPRAY BTL (OCEAN) PRN ×2 (18:14→22:53)
[2018-07-08] MEDS: ASPIRIN 81 MG ENTERIC TAB PO SCH (20:42)
[2018-07-08] MEDS: traZODone 50 MG TAB PO SCH (20:42)
[2018-07-08 22:00] VITALS: BP 128/70
[2018-07-09 02:00] VITALS: BP 138/70
[2018-07-09] MEDS: IPRATROPIUM 0.5MG/ALBUTEROL 2.5MG INH SOL UD 3ML (DUONEB)(J7620) NEB SCH ×6 (04:11→23:43)
[2018-07-09] MEDS ORDERED: SIMETHICONE 80 MG CHEW TAB PO ONE (04:15)
[2018-07-09] MEDS ORDERED: PILL CUTTER 1 EACH XX PRN (04:15)
[2018-07-09] MEDS: AMPICILLIN SOD/SULBACTAM SOD 1.5 GM in D5W MINI-BAG PLUS 50 ML IV SCH ×4 (04:28→21:30)
[2018-07-09 06:00] VITALS: BP 140/80
[2018-07-09] MEDS: LACTULOSE 20 GM/30 ML SYRUP UD PO SCH ×4 (06:02→23:27)
[2018-07-09] MEDS: ACETAMINOPHEN 500 MG TAB PO PRN ×2 (06:03→10:01)
[2018-07-09 07:06] LABS: HEMATOCRIT 49.7 % (36.0-47.0); HEMOGLOBIN 15.7 g/dl (12.0-15.5); MEAN CORPUSCULAR HEMOGLOBIN 28.9 pg (27.0-33.0); MEAN CORPUSCULAR HGB CONC 31.6 g/dl (32.0-36.5); MEAN CORPUSCULAR VOLUME 91.4 fl (80.0-96.0); PLATELET COUNT, AUTOMATED 215 10^3/uL (150-450); RED BLOOD COUNT 5.44 10^6/uL (4.00-5.40); WHITE BLOOD COUNT 16.5 10^3/uL (4.0-10.0)
[2018-07-09 07:21] LABS: BLOOD UREA NITROGEN 41 MG/DL (7-18); C REACTIVE PROTEIN QUANTITATIV 1.49 MG/DL (0.00-0.30); CALCIUM LEVEL 9.9 MG/DL (8.8-10.2); CARBON DIOXIDE LEVEL 28 MEQ/L (21-32); CHLORIDE LEVEL 105 MEQ/L (98-107); GLOMERULAR FILTRATION RATE > 60.0 (>39); GLUCOSE, FASTING 124 MG/DL (70-100); POTASSIUM SERUM 3.6 MEQ/L (3.5-5.1); SODIUM LEVEL 138 MEQ/L (136-145)
[2018-07-09] MEDS: ADVAIR HFA 230/21MCG INHALER INH SCH ×2 (08:03→20:56)
[2018-07-09] MEDS ORDERED: ISOVUE-370 76% 100ML VIAL (Q9967) As Ordered ONE (08:37)
[2018-07-09] MEDS ORDERED: SIMETHICONE 80 MG CHEW TAB PO SCH (09:00)
--- NOTE | 2018-07-09 09:52 | REP ---
CT ABDOMEN AND PELVIS WITH ORAL AND IV CONTRAST: TECHNIQUE: Axial contrast enhanced images from the lung bases to the pubic symphysis using 100 mL Isovue 370 intravenous contrast material with multiplanar reformations. COMPARISON: 07/04/2018 Once again the visualized lung bases demonstrate fibroatelectatic changes, which are stable. There is a subcentimeter hypodensity in the right lobe of the liver somewhat inferiorly and medially likely representing a cyst or hemangioma. The spleen, adrenals, pancreas and kidneys appear unremarkable. There is no hydronephrosis. There is no abdominal aortic aneurysm. No adenopathy, free air or free fluid is seen. Gallstone is again seen in the gallbladder. There is no gallbladder wall thickening. There is diffuse dilatation of the colon. There is no obstructing lesion. I suspect this represents a colonic ileus. There is no small bowel dilatation. There is sigmoid diverticulosis. There is mild thickening of the distal sigmoid colon without acute inflammatory change. There is no acute inflammation in the surrounding fat. This could be due to chronic inflammation but neoplasm is not excluded. There is no evidence of a pelvic mass. Urinary bladder appears unremarkable. There are degenerative changes of the spine. IMPRESSION: No evidence of obstruction. Diffuse dilatation of the colon may represent an ileus. There is sigmoid diverticulosis without acute diverticulitis. There is mild thickening of the distal sigmoid colon which could represent chronic inflammatory changes but underlying neoplasm is not excluded. Gallstone again seen in the gallbladder. Electronically Signed by Otis Bravo MD 07/10/2018 11:38 A
[2018-07-09] MEDS: hydrOXYzine 50 MG TAB PO PRN (09:59)
[2018-07-09] MEDS: amLODIPine 5 MG TAB PO SCH (10:00)
[2018-07-09] MEDS: PANTOPRAZOLE 40MG TAB (PROTONIX) PO SCH (10:00)
[2018-07-09] MEDS: predniSONE 20 MG TAB PO SCH (10:00)
[2018-07-09] MEDS: ATORVASTATIN 10 MG TAB PO SCH (10:00)
[2018-07-09] MEDS: CYCLOBENZAPRINE 5MG TABLET PO SCH ×2 (10:00→21:30)
[2018-07-09] MEDS: DOCUSATE SODIUM 100 MG CAP PO SCH (10:00)
[2018-07-09] MEDS: ENOXAPARIN 40 MG/0.4 ML SYRINGE (J1650) SC SCH (10:01)
[2018-07-09] MEDS: D5W/0.45% SODIUM CHLORIDE 1,000 ML IV SCH ×2 (10:02→21:30)
[2018-07-09] MEDS ORDERED: FLEET OIL RETENTION ENEMA PR ONE (11:00)
--- NOTE | 2018-07-09 12:48 | IPNPDOC ---
Text Note Date of Service The patient was seen on 07/09/18. NOTE Subjective: Patient is a 68-year-old female with a PMHx of Metabolic syndrome, HTN, DLP, End stage COPD with O2 dependence (3-5 L), Diverticulosis, Tobacco abuse, Osteoporosis who presented to the ER with complaints of shortness of breath, associated with wheezing and cough. Patient was admitted to the hospital service for further evaluation and treatment. Patient was seen and examined at the bedside. Patient is still complaining of constipation. Reports some Nausea, but denies any vomiting. Patient did receive an enema yesterday a small bowel movement. Still been expressing urinary retention and has been applying straight catheterization. Denies chest pain, shortness of breath or palpitations. Reports that her back pain is doing significantly better. Objective: Vitals (See below) General: Lying in bed, no acute distress, comfortable, AAOx3 HEENT: NC, AT CVS: RRR, +S1S2 Lungs: Air entry is fair bilaterally, no auscultated evidence of rhonchi / rales / wheezing Abdomen: Soft, Mildly distended, diffuse tenderness Extremities: No evidence of LE edema, - Calf tenderness Back: Continues to have improvement in muscle tenderness on mid/low back Assessment and plan: s/p Shortness of breath - likely 2/2 acute COPD exacerbation; possibly 2/2 aspiration pneumonia - Currently, patient reports that her breathing is doing much better; denies any significant expectoration - Remains afebrile and hemodynamically stable - Leukocytosis - likely 2/2 corticosteroid use - Sputum culture 07/03: Negative; Unable to provide additional sputum sample since possible aspiration on 07/05 - CTA chest 07/02: No CT evidence of pulmonary embolus. Hyperinflation COPD with emphysematous changes. Otherwise no acute disease seen. - CXR 07/05: 1. Right lower lobe atelectasis or infiltrate. 2. Bibasilar chronic interstitial fibrosis. - c/w Unasyn (Day #5); Will complete antibiotic therapy today - c/w Prednisone; will begin to taper - c/w incentive spirometry - c/w Inhaled therapy as ordered s/p Intractable back pain - likely 2/2 musculoskeletal etiology - likely with muscle spasms - Patient currently does not experience any focal neurologic deficits; has full strength of her lower extremities - Patient currently does not want to pursue an MRI; risks and benefits have been discussed - c/w Flexeril and Ketorolac Constipation - Continue with bowel regimen as ordered - XR abdomen 07/08: Nonspecific bowel gas pattern. - CT ab/pelv 07/09: No evidence of obstruction. Diffuse dilatation of the colon may represent an ileus. There is sigmoid diverticulosis without acute diverticulitis. There is mild thickening of the distal sigmoid colon which could represent chronic inflammatory changes but underlying neoplasm is not excluded. Gallstone again seen in the gallbladder. - c/w lactulose on a scheduled dosing and titrate to one to 2 bowel movements daily - Will provide another enema today; Mineral oil enema x 1 Urinary retention - possibly 2/2 constipation - Will c/w Bladder scans and straight cath if required - Will correct constipation symptoms before pursuing further interventions Metabolic syndrome HTN - BP well controlled - c/w Amlodipine DLP - c/w Atorvastatin and ASA Diverticulosis - No episodes currently Tobacco abuse - Quit smoking 20 years ago Osteoporosis - Patient has been on Alendronate since 2012 - DEXA 08/2015 Mood disorder / Anxiety / Insomnia - c/w Trazodone - c/w Hydroxyzine for episodes of anxiety GI prophylaxis - c/w Protonix DVT prophylaxis - c/w Lovenox Disposition: - Will c/w PT and OT until cleared for DC home - Will hold therapy today VS,Fishbone, I+O VS, Fishbone, I+O Laboratory Tests 07/09/18 06:48 Red Blood Count 5.44 H, Mean Corpuscular Volume 91.4, Mean Corpuscular Hemoglobin 28.9, Mean Corpuscular Hemoglobin Concent 31.6 L, Red Cell Distribution Width 13.9, Calcium Level 9.9 Vital Signs Date Time Temp Pulse Resp B/P (MAP) Pulse Ox O2 Delivery O2 Flow Rate FiO2 07/09/18 10:00 82 136/82 07/09/18 07:20 4.0 07/09/18 06:00 96.7 16 94 07/05/18 09:32 89 I&O- Last 24 Hours up to 6 AM 07/09/18 06:00 Intake Total 730 ml Output Total 997 ml Balance -267 ml SHAYLEE ASHRAF MD Jul 09, 2018 12:48
[2018-07-09 14:00] VITALS: BP 122/76
[2018-07-09 15:07] LABS: ALBUMIN 3.3 GM/DL (3.2-5.2); BILIRUBIN,DIRECT 0.2 MG/DL (0.0-0.2); BILIRUBIN,TOTAL 0.5 MG/DL (0.2-1.0); TOTAL PROTEIN 6.8 GM/DL (6.4-8.2)
[2018-07-09] MEDS: ASPIRIN 81 MG ENTERIC TAB PO SCH (21:30)
[2018-07-09] MEDS: traZODone 50 MG TAB PO SCH (21:30)
[2018-07-09 22:00] VITALS: BP 142/83
[2018-07-10 02:00] VITALS: BP 138/79
[2018-07-10] MEDS: ACETAMINOPHEN 500 MG TAB PO PRN (02:49)
[2018-07-10] MEDS: hydrOXYzine 50 MG TAB PO PRN ×2 (02:49→09:46)
[2018-07-10] MEDS: IPRATROPIUM 0.5MG/ALBUTEROL 2.5MG INH SOL UD 3ML (DUONEB)(J7620) NEB SCH ×6 (04:05→23:18)
[2018-07-10 06:00] VITALS: BP 137/82
[2018-07-10] MEDS: LACTULOSE 20 GM/30 ML SYRUP UD PO SCH ×3 (06:16→17:19)
[2018-07-10] MEDS: ADVAIR HFA 230/21MCG INHALER INH SCH ×2 (08:56→20:56)
[2018-07-10] MEDS: ATORVASTATIN 10 MG TAB PO SCH (09:46)
[2018-07-10] MEDS: DOCUSATE SODIUM 100 MG CAP PO SCH (09:46)
[2018-07-10] MEDS: PANTOPRAZOLE 40MG TAB (PROTONIX) PO SCH (09:46)
[2018-07-10] MEDS: CYCLOBENZAPRINE 5MG TABLET PO SCH ×2 (09:47→20:37)
[2018-07-10] MEDS: ENOXAPARIN 40 MG/0.4 ML SYRINGE (J1650) SC SCH (09:47)
[2018-07-10] MEDS: amLODIPine 5 MG TAB PO SCH (09:47)
[2018-07-10] MEDS: predniSONE 20 MG TAB PO SCH (09:47)
[2018-07-10] MEDS: D5W/0.45% SODIUM CHLORIDE 1,000 ML IV SCH ×2 (09:47→20:40)
[2018-07-10] MEDS ORDERED: FLEET OIL RETENTION ENEMA PR ONE (11:45)
--- NOTE | 2018-07-10 12:34 | IPNPDOC ---
Text Note Date of Service The patient was seen on 07/10/18. NOTE Subjective: Patient is a 68-year-old female with a PMHx of Metabolic syndrome, HTN, DLP, End stage COPD with O2 dependence (3-5 L), Diverticulosis, Tobacco abuse, Osteoporosis who presented to the ER with complaints of shortness of breath, associated with wheezing and cough. Patient was admitted to the hospital service for further evaluation and treatment. Patient was seen and examined at the bedside. Objective: Vitals (See below) General: Lying in bed, no acute distress, comfortable, AAOx3 HEENT: NC, AT CVS: RRR, +S1S2 Lungs: Air entry is fair bilaterally, no auscultated evidence of rhonchi / rales / wheezing Abdomen: Soft, Mildly distended, diffuse tenderness Extremities: No evidence of LE edema, - Calf tenderness Back: Continues to have improvement in muscle tenderness on mid/low back Assessment and plan: s/p Shortness of breath - likely 2/2 acute COPD exacerbation; possibly 2/2 aspiration pneumonia - Currently, patient reports that her breathing is doing much better; denies any significant expectoration - Remains afebrile and hemodynamically stable - Leukocytosis - likely 2/2 corticosteroid use - Sputum culture 07/03: Negative; Unable to provide additional sputum sample since possible aspiration on 07/05 - CTA chest 07/02: No CT evidence of pulmonary embolus. Hyperinflation COPD with emphysematous changes. Otherwise no acute disease seen. - CXR 07/05: 1. Right lower lobe atelectasis or infiltrate. 2. Bibasilar chronic interstitial fibrosis. - Has completed a 5 day course of Unasyn - c/w Prednisone; will reduce dose by 50% - c/w incentive spirometry - c/w Inhaled therapy as ordered s/p Intractable back pain - likely 2/2 musculoskeletal etiology - likely with muscle spasms - Patient currently does not experience any focal neurologic deficits; has full strength of her lower extremities - Patient currently does not want to pursue an MRI; risks and benefits have been discussed - c/w Flexeril and Ketorolac Constipation - Continue with bowel regimen as ordered - XR abdomen 07/08: Nonspecific bowel gas pattern. - CT ab/pelv 07/09: No evidence of obstruction. Diffuse dilatation of the colon may represent an ileus. There is sigmoid diverticulosis without acute diverticulitis. There is mild thickening of the distal sigmoid colon which could represent chronic inflammatory changes but underlying neoplasm is not excluded. Gallstone again seen in the gallbladder. - c/w lactulose on a scheduled dosing and titrate to one to 2 bowel movements daily - Patient has experienced several large bowel movement yesterday with a Mineral oil enema x 1 - Today patient is again constipated and will provide a tapwater enema Urinary retention - possibly 2/2 constipation - Will correct constipation symptoms before pursuing further interventions - Will insert indwelling Esquivel catheter until her constipation resolves Metabolic syndrome HTN - BP well controlled - c/w Amlodipine DLP - c/w Atorvastatin and ASA Diverticulosis - No episodes currently Tobacco abuse - Quit smoking 20 years ago Osteoporosis - Patient has been on Alendronate since 2012 - DEXA 08/2015 Mood disorder / Anxiety / Insomnia - c/w Trazodone - c/w Hydroxyzine for episodes of anxiety GI prophylaxis - c/w Protonix DVT prophylaxis - c/w Lovenox Disposition: - Resolving constipation - Will c/w PT and OT until cleared for DC home VS,Fishbone, I+O VS, Fishbone, I+O Vital Signs Date Time Temp Pulse Resp B/P (MAP) Pulse Ox O2 Delivery O2 Flow Rate FiO2 07/10/18 09:47 100 137/82 07/10/18 06:00 97.9 19 95 3.0 07/05/18 09:32 89 I&O- Last 24 Hours up to 6 AM 07/10/18 06:00 Intake Total 200 ml Output Total 1683 ml Balance -1483 ml SHAYLEE ASHRAF MD July 10, 2018 12:34
[2018-07-10 14:00] VITALS: BP 160/62
[2018-07-10 14:15] VITALS: BP 150/72
[2018-07-10 14:44] LABS: CPK CREATINE PHOSPHOKINASE 45 U/L (26-192); TROPONIN I < 0.02 NG/ML (< 0.10)
[2018-07-10] MEDS ORDERED: hydrOXYzine 50 MG TAB PO PRN (15:30)
[2018-07-10 20:09] LABS: CPK CREATINE PHOSPHOKINASE 31 U/L (26-192); LIPASE 117 U/L (73-393); MB/CK RELATIVE INDEX 4.84 (< OR =4); TROPONIN I < 0.02 NG/ML (< 0.10)
[2018-07-10] MEDS: BISACODYL 10 MG SUPP PR PRN (20:37)
[2018-07-10] MEDS: traZODone 50 MG TAB PO SCH (20:37)
[2018-07-10] MEDS: ASPIRIN 81 MG ENTERIC TAB PO SCH (20:38)
[2018-07-10 22:00] VITALS: BP 141/78
[2018-07-11] VITALS (7 sets, daily range): BP systolic 146–180; BP diastolic 65–97
[2018-07-11] MEDS: LACTULOSE 20 GM/30 ML SYRUP UD PO SCH ×4 (00:41→17:44)
[2018-07-11] MEDS: IPRATROPIUM 0.5MG/ALBUTEROL 2.5MG INH SOL UD 3ML (DUONEB)(J7620) NEB SCH ×5 (03:09→20:00)
[2018-07-11 06:42] LABS: C REACTIVE PROTEIN QUANTITATIV 0.66 MG/DL (0.00-0.30)
--- NOTE | 2018-07-11 06:55 | ECGEPIP ---
Stationary ECG Study [facility] Test Date: 2018-07-10 Pat Name: MICHAEL STAFFORD Department: Room: [place] [address] Gender: F Crosscutter: CLAUDINE : 1950 Requested By: SHAYLEE ASHRAF Order Number: [id number] Reading MD: Kraig Hunter Measurements Intervals [place] Rate: 95 P: 84 ME: 149 QRS: 23 QRSD: 82 T: 93 QT: 297 QTc: 374 Interpretive Statements Normal sinus rhythm Low QRS complex voltage in the limb leads Nonspecific ST-T wave abnormalities Persistent S wave in the anterolateral leads Pulmonary disease No significant change when compared to prior tracing of 07/02/2018 Electronically Signed On 07-11-2018 6:55:29 EDT by Kraig Hunter
[2018-07-11 07:47] LABS: ALBUMIN 2.7 GM/DL (3.2-5.2); ALT/SGPT 43 U/L (12-78); BILIRUBIN,TOTAL 0.4 MG/DL (0.2-1.0); BLOOD UREA NITROGEN 20 MG/DL (7-18); CALCIUM LEVEL 8.3 MG/DL (8.8-10.2); CARBON DIOXIDE LEVEL 36 MEQ/L (21-32); CHLORIDE LEVEL 103 MEQ/L (98-107); CREATININE FOR GFR 0.54 MG/DL (0.55-1.30); GLOMERULAR FILTRATION RATE > 60.0 (>39); GLUCOSE, FASTING 132 MG/DL (70-100); MAGNESIUM LEVEL 2.4 MG/DL (1.8-2.4); POTASSIUM SERUM 3.6 MEQ/L (3.5-5.1); SODIUM LEVEL 143 MEQ/L (136-145); TOTAL PROTEIN 6.2 GM/DL (6.4-8.2)
[2018-07-11] MEDS: ADVAIR HFA 230/21MCG INHALER INH SCH ×2 (08:04→20:40)
[2018-07-11 08:30] LABS: HEMATOCRIT 44.3 % (36.0-47.0); HEMOGLOBIN 13.9 g/dl (12.0-15.5); MEAN CORPUSCULAR HEMOGLOBIN 28.8 pg (27.0-33.0); MEAN CORPUSCULAR HGB CONC 31.4 g/dl (32.0-36.5); MEAN CORPUSCULAR VOLUME 91.7 fl (80.0-96.0); PLATELET COUNT, AUTOMATED 221 10^3/uL (150-450); RED BLOOD COUNT 4.83 10^6/uL (4.00-5.40)
[2018-07-11 09:25] LABS: LYMPHOCYTES 27 % (16-52); MONOCYTES 1 % (0-8); NEUTROPHILS 72 % (35-75); PLATELET ESTIMATE NORMAL (NORMAL)
--- NOTE | 2018-07-11 09:43 | REP ---
KUB ABDOMEN AND PELVIS: Portable KUB film of the abdomen and pelvis performed and compared to a prior CT 07/09/2018. There is diffuse dilatation of the colon which appears to have increased since that prior CT exam. The cecum measures 14 cm in diameter. Air is seen throughout the colon to the rectum. The CT showed no evidence of volvulus. There is only possible mild sigmoid wall thickening. I suspect the findings represent a colonic ileus/[place]'s syndrome. I do not see significant small bowel dilatation. Electronically Signed by Otis Bravo MD 07/12/2018 12:08 P
[2018-07-11] MEDS: ENOXAPARIN 40 MG/0.4 ML SYRINGE (J1650) SC SCH (09:50)
[2018-07-11] MEDS: predniSONE 20 MG TAB PO SCH (09:51)
[2018-07-11] MEDS: PANTOPRAZOLE 40MG TAB (PROTONIX) PO SCH (09:51)
[2018-07-11] MEDS: DOCUSATE SODIUM 100 MG CAP PO SCH (09:51)
[2018-07-11] MEDS: CYCLOBENZAPRINE 5MG TABLET PO SCH ×2 (09:51→22:53)
[2018-07-11] MEDS: ATORVASTATIN 10 MG TAB PO SCH (09:51)
[2018-07-11] MEDS: amLODIPine 5 MG TAB PO SCH (09:55)
[2018-07-11] MEDS: D5W/0.45% SODIUM CHLORIDE 1,000 ML IV SCH ×2 (09:55→22:52)
--- NOTE | 2018-07-11 12:10 | IPNPDOC ---
Text Note Date of Service The patient was seen on 07/11/18. NOTE Subjective: Patient is a 68-year-old female with a PMHx of Metabolic syndrome, HTN, DLP, End stage COPD with O2 dependence (3-5 L), Diverticulosis, Tobacco abuse, Osteoporosis who presented to the ER with complaints of shortness of breath, associated with wheezing and cough. Patient was admitted to the hospital service for further evaluation and treatment. Patient was seen and examined at the bedside. Currently, patient reports abdominal pain doesn't report any significant nausea this morning. Denies vomiting. Has not yet had a bowel movement for 2 days. Denies chest pain, shortness of breath or palpitations. Patient does have a Esquivel catheter in place. Objective: Vitals (See below) General: Lying in bed, no acute distress, comfortable, AAOx3 HEENT: NC, AT CVS: RRR, +S1S2 Lungs: There appears to be air entry bilaterally that is fair without evidence of rhonchi, rales or wheezing Abdomen: Abdomen again is noted to be soft, no significant distention diffuse tenderness which is mild is noted, hypoactive bowel sounds Extremities: Lower extremities are without edema, no calf tenderness Assessment and plan: s/p Shortness of breath - likely 2/2 acute COPD exacerbation; possibly 2/2 aspir ation pneumonia - Currently, patient reports that her breathing is doing much better; denies any significant expectoration - Remains afebrile and hemodynamically stable - Leukocytosis - likely 2/2 corticosteroid use - Sputum culture 07/03: Negative; Unable to provide additional sputum sample since possible aspiration on 07/05 - CTA chest 07/02: No CT evidence of pulmonary embolus. Hyperinflation COPD with emphysematous changes. Otherwise no acute disease seen. - CXR 07/05: 1. Right lower lobe atelectasis or infiltrate. 2. Bibasilar chronic interstitial fibrosis. - s/p Unasyn for 5 days - c/w Prednisone 20; will continue to taper - c/w incentive spirometry - c/w Inhaled therapy as ordered s/p Intractable back pain - likely 2/2 musculoskeletal etiology - likely with muscle spasms - Patient currently does not experience any focal neurologic deficits; has full strength of her lower extremities - Patient currently does not want to pursue an MRI; risks and benefits have been discussed - c/w Flexeril and Ketorolac Abdominal pain - possibly 2/2 colonic ileus, possibly 2/2 constipation - Physical reveals diffuse tenderness with hypoactive bowel sounds - XR abdomen 07/08: Nonspecific bowel gas pattern. - CT ab/pelv 07/09: No evidence of obstruction. Diffuse dilatation of the colon may represent an ileus. There is sigmoid diverticulosis without acute diverticulitis. There is mild thickening of the distal sigmoid colon which could represent chronic inflammatory changes but underlying neoplasm is not excluded. Gallstone again seen in the gallbladder. - c/w lactulose on a scheduled dosing and titrate to one to 2 bowel movements daily - Patient has experienced several large bowel movement on 07/09 with a Mineral oil enema x 1 - Has not had any significant bowel movement since that point - Discussed case with Surgery; Dr. Mcbride - will be on consultation; advised barium enema Urinary retention - possibly 2/2 constipation - Will correct constipation symptoms before pursuing further interventions - s/p Esquivel catheter insertion; will remove once regular BMs re-start Metabolic syndrome HTN - BP well controlled - c/w Amlodipine DLP - c/w Atorvastatin and ASA Diverticulosis - No episodes currently Tobacco abuse - Quit smoking 20 years ago Osteoporosis - Patient has been on Alendronate since 2012 - DEXA 08/2015 Mood disorder / Anxiety / Insomnia - c/w Trazodone - c/w Hydroxyzine for episodes of anxiety GI prophylaxis - c/w Protonix DVT prophylaxis - c/w Lovenox Disposition: - Surgical consultation VS,Fishbone, I+O VS, Fishbone, I+O Laboratory Tests 07/11/18 05:50 Red Blood Count 4.83, Mean Corpuscular Volume 91.7, Mean Corpuscular Hemoglobin 28.8, Mean Corpuscular Hemoglobin Concent 31.4 L, Red Cell Distribution Width 13.8 07/11/18 05:55 Calcium Level 8.3 #L, Aspartate Amino Transf (AST/SGOT) 9, Alanine Aminotransferase (ALT/SGPT) 43, Alkaline Phosphatase 71, Total Bilirubin 0.4, Total Protein 6.2 L, Albumin 2.7 L Vital Signs Date Time Temp Pulse Resp B/P (MAP) Pulse Ox O2 Delivery O2 Flow Rate FiO2 07/11/18 10:00 98.3 88 17 172/97 (122) 90 2.0 07/05/18 09:32 89 I&O- Last 24 Hours up to 6 AM 07/11/18 06:00 Intake Total 960 ml Output Total 2200 ml Balance -1240 ml SHAYLEE ASHRAF MD July 11, 2018 12:10
[2018-07-11] MEDS ORDERED: BISACODYL 10 MG SUPP PR ONE (14:00)
[2018-07-11] MEDS ORDERED: LIQUID POLIBAR PLUS 105% w/v 1900ML BTL As Ordered ONE (14:23)
[2018-07-11] MEDS ORDERED: LIDOCAINE 1% MDV 20ML VIAL As Ordered ONE (15:38)
[2018-07-11] MEDS ORDERED: MAGNESIUM CITRATE 300 ML BTL PO ONE ×2 (15:45→21:45)
[2018-07-11] MEDS ORDERED: SODIUM CHLORIDE 0.9% INJ 10 ML SYR IV PRN (17:00)
[2018-07-11] MEDS: SODIUM CHLORIDE 0.9% INJ 10 ML SYR IV SCH (17:45)
[2018-07-11] MEDS: SIMETHICONE 40MG/0.6ML DROPS 30ML PO SCH ×2 (18:08→22:54)
[2018-07-11] MEDS: METOCLOPRAMIDE INJ 10MG/2ML VIAL (J2765) IV PRN (18:53)
--- NOTE | 2018-07-11 20:40 | IPNPDOC ---
Text Note Date of Service The patient was seen on 07/11/18. NOTE No changes to H+P. She is responding to the mag citrate with large loose stools, but the abdomen is still tense and distended. Plan is for a flexible sigmoidoscopy to confirm that there is not a mechanical obstruction prior to considering more pharmacological therapy. Consent was obtained by the daughter. Lamin Mcbride DO A-FIB/CHADSVASC A-FIB History Current/History of A-Fib/PAF?: No VS,Fishbone, I+O VS, Fishbone, I+O Laboratory Tests 07/11/18 05:50 Red Blood Count 4.83, Mean Corpuscular Volume 91.7, Mean Corpuscular Hemoglobin 28.8, Mean Corpuscular Hemoglobin Concent 31.4 L, Red Cell Distribution Width 13.8 07/11/18 05:55 Calcium Level 8.3 #L, Aspartate Amino Transf (AST/SGOT) 9, Alanine Aminotransferase (ALT/SGPT) 43, Alkaline Phosphatase 71, Total Bilirubin 0.4, Total Protein 6.2 L, Albumin 2.7 L Vital Signs Date Time Temp Pulse Resp B/P (MAP) Pulse Ox O2 Delivery O2 Flow Rate FiO2 07/11/18 18:00 99.7 94 19 165/97 (119) 100 2.0 07/05/18 09:32 89 I&O- Last 24 Hours up to 6 AM 07/11/18 06:00 Intake Total 960 ml Output Total 2200 ml Balance -1240 ml KARTIK MCBRDIE DO July 11, 2018 20:40
[2018-07-11] MEDS ORDERED: PROPOFOL 200 MG/20 ML VIAL As Ordered ONE ×2 (21:13→21:33)
[2018-07-11] MEDS ORDERED: ONDANSETRON 4MG/2ML VIAL (J2405) IV PRN (21:15)
--- NOTE | 2018-07-11 21:46 | CR ---
DATE OF CONSULTATION: 07/11/2018 CHIEF COMPLAINT: Abdominal pain, possible bowel obstruction. HISTORY OF PRESENT ILLNESS: The patient is a 68-year-old female with a significant past medical history of chronic obstructive pulmonary disease (COPD), who came into emergency room on July 02 with shortness of breath and cough. She was admitted to hospitalist service for COPD exacerbation and possible aspiration pneumonia. Over the past week, she has had multiple bowel movements. However, over the past 48 hours, she has had increasing abdominal distension as well as increasing abdominal pain. She has had two CTs of her abdomen so far during this admission that showed non-obstruction of the colon but possible inflammation of the sigmoid concerning for chronic inflammation. No other abnormalities. However, abdominal x-ray completed today does show significant distension of the colon with a 14 cm cecum. No signs of any volvulus or obstruction. There is air all way into the rectum. I discussed the radiology images with Dr. Bravo. He does not feel that a barium enema is necessary at this point and is confident based off her current images that there is no significant complete obstruction to be concerned about. The rest of her labs have been stable. No signs of acute ischemia or obstruction. She has had a little nausea and vomiting today, but it is controllable with Zofran. She has also been having multiple bowel movements after I gave her some magnesium citrate. However, due to persistent distension and abdominal pain, plan is to do a flexible sigmoidoscopy this evening to make sure that there is no complete blockage prior to continuing with medical therapy. PAST MEDICAL HISTORY: Hypertension, COPD, hyperlipidemia, diverticulosis, osteoporosis, metabolic syndrome. PAST SURGICAL HISTORY: section, tonsillectomy, dilation and curettage (D and C), ovarian cyst removal. She has refused colonoscopies in the past. FAMILY HISTORY: Noncontributory SOCIAL HISTORY: 20 pack-year smoking history. No current drug, alcohol or tobacco abuse. ALLERGIES: None. HOME MEDICATIONS: Please see med rec. REVIEW OF SYSTEMS: Pertinent positive and negatives as stated in the HPI. PHYSICAL EXAMINATION: General: Awake and alert. Vital Signs: Temperature 99.7, pulse 94, respirations 19, blood pressure 165/97, pulse oximetry 100% on 2 liters nasal cannula. HEENT: Pupils equally round, react to light and accommodation. Heart: S1, S2. Abdomen is tense, very distended, tender to palpation diffusely. No rebound or guarding. Extremities: Bilateral lower extremity pitting edema. LABORATORY DATA: White count 15, hemoglobin 13.9, platelets 221, potassium 3.6, creatinine 0.54. IMAGING STUDIES: Abdomen x-ray obtained today shows diffuse dilatation of the colon, increased from prior CT. Cecum measuring 14 cm in diameter but air is seen throughout the colon all the way to the rectum. CT scan showed no evidence of volvulus, just possible mild sigmoid wall thickening, suspicious for colonic ileus. ASSESSMENT/PLAN: Patient is a 68-year-old female currently with COPD exacerbation. She also has signs of colonic obstruction versus colonic ileus, due to persistent dilatation, despite suppositories and laxatives, recommendation is to proceed with flexible sigmoidoscopy just to make sure that there is no mechanical obstruction. If not, then we will continue with laxatives and possibly consider some neostigmine and treat it like an [place]'s as long as we can confirm there is no mechanical obstruction first. Risks and benefits of the procedure were discussed in detail with the entire family and consent was obtained. We will plan for procedure this evening.
[2018-07-11] MEDS: traZODone 50 MG TAB PO SCH (22:53)
[2018-07-11] MEDS: ASPIRIN 81 MG ENTERIC TAB PO SCH (22:53)
[2018-07-12] MEDS: IPRATROPIUM 0.5MG/ALBUTEROL 2.5MG INH SOL UD 3ML (DUONEB)(J7620) NEB SCH ×6 (00:43→20:00)
[2018-07-12 02:00] VITALS: BP 140/92
[2018-07-12] MEDS: SODIUM CHLORIDE 0.9% INJ 10 ML SYR IV SCH ×2 (05:34→18:00)
[2018-07-12 05:48] LABS: HEMATOCRIT 44.2 % (36.0-47.0); MEAN CORPUSCULAR HEMOGLOBIN 28.6 pg (27.0-33.0); MEAN CORPUSCULAR HGB CONC 31.7 g/dl (32.0-36.5); MEAN CORPUSCULAR VOLUME 90.4 fl (80.0-96.0); PLATELET COUNT, AUTOMATED 264 10^3/uL (150-450); RED BLOOD COUNT 4.89 10^6/uL (4.00-5.40); WHITE BLOOD COUNT 18.7 10^3/uL (4.0-10.0)
[2018-07-12 06:00] VITALS: BP 140/90
[2018-07-12 06:21] LABS: ATYPICAL LYMPH 2 % (0-5); LYMPHOCYTES 19 % (16-52); MONOCYTES 13 % (0-8); NEUTROPHILS 66 % (35-75); PLATELET ESTIMATE NORMAL (NORMAL)
[2018-07-12 06:22] LABS: ALBUMIN 2.8 GM/DL (3.2-5.2); ALT/SGPT 48 U/L (12-78); BILIRUBIN,TOTAL 0.5 MG/DL (0.2-1.0); BLOOD UREA NITROGEN 19 MG/DL (7-18); CARBON DIOXIDE LEVEL 37 MEQ/L (21-32); CHLORIDE LEVEL 102 MEQ/L (98-107); GLOMERULAR FILTRATION RATE > 60.0 (>39); GLUCOSE, FASTING 129 MG/DL (70-100); MAGNESIUM LEVEL 2.9 MG/DL (1.8-2.4); POTASSIUM SERUM 3.6 MEQ/L (3.5-5.1); SODIUM LEVEL 141 MEQ/L (136-145); TOTAL PROTEIN 6.4 GM/DL (6.4-8.2)
[2018-07-12 06:25] LABS: HYPOCHROMASIA 1+
[2018-07-12] MEDS: ADVAIR HFA 230/21MCG INHALER INH SCH ×2 (07:54→20:31)
--- NOTE | 2018-07-12 08:40 | RO ---
DATE OF PROCEDURE: 07/11/2018 PREOPERATIVE DIAGNOSIS: Large bowel obstruction. POSTOPERATIVE DIAGNOSIS: Sigmoid stricturing. PROCEDURE: Flexible sigmoidoscopy. SURGEON: Dr. Otis Mcbride. TOWERMAN: None. ANESTHESIA: General. ESTIMATED BLOOD LOSS: None. COMPLICATIONS: None. INDICATIONS FOR PROCEDURE: The patient is a 68-year-old female who has had increasing abdominal distension and colonic distension over the last [address] scan did not show any significant findings of obstruction. There was air extending all the way into the rectum. However she has continued to get progressively more distended. Recommendation was to proceed with flexible sigmoidoscopy to evaluate for distal obstruction. PROCEDURE: The patient was brought back to operating room four. After sufficient sedation, the patient was placed the left lateral decubitus position. Next time out was done to confirm proper patient and proper procedure. Following that, a flexible colonoscope was passed through the rectum into the sigmoid colon. I was unable to pass the scope beyond about 25 cm due to significant twisting of the colon. Scope was then removed and a flexible upper endoscope was then used. I was able to twist it through the strictured area and make it into the proximal sigmoid colon which appeared to be normal. I did not see any signs of any masses. The only obstruction was the twisting versus stricture in the midsigmoid. There was diverticulosis there. No signs of any masses again. Once I was able to get through the stricture area due to significant twisting, I was not able to pass the smaller scope any further so the scope was removed. The patient was awakened from anesthesia and sent to postanesthesia care unit in stable condition.
[2018-07-12] MEDS: CYCLOBENZAPRINE 5MG TABLET PO SCH ×2 (08:51→20:41)
[2018-07-12] MEDS: ATORVASTATIN 10 MG TAB PO SCH (08:52)
[2018-07-12] MEDS: ENOXAPARIN 40 MG/0.4 ML SYRINGE (J1650) SC SCH ×2 (08:52→08:56)
[2018-07-12] MEDS: amLODIPine 5 MG TAB PO SCH (08:52)
[2018-07-12] MEDS: DICYCLOMINE 10 MG CAP PO SCH ×3 (08:52→20:41)
[2018-07-12] MEDS: DOCUSATE SODIUM 100 MG CAP PO SCH (08:52)
[2018-07-12] MEDS: PANTOPRAZOLE 40MG TAB (PROTONIX) PO SCH (08:52)
[2018-07-12] MEDS: predniSONE 20 MG TAB PO SCH (08:52)
[2018-07-12] MEDS: SIMETHICONE 40MG/0.6ML DROPS 30ML PO SCH ×4 (08:53→20:41)
[2018-07-12] MEDS: ACETAMINOPHEN 500 MG TAB PO PRN (08:53)
[2018-07-12 10:00] VITALS: BP 157/68
--- NOTE | 2018-07-12 11:16 | REP ---
Procedure: Mid line insertion with Site-Rite The procedure was performed under the direct supervision of Dr. Bravo. The risks and benefits of the procedure were explained to the patient and informed consent was obtained. The basilic vein was localized using ultrasound guidance. The skin was prepped and draped in a sterile fashion. 1% lidocaine was used as a local anesthetic. Using ultrasound guidance the basilic vein was cannulated and a 0.018 guidewire was inserted. The needle was removed and a 5.5 Surinamese dilator and peel-away sheath was inserted over the guide wire. A 5.5 [place]amese dual lumen catheter was cut to length of 60.5 cm. The dilator was removed and the catheter was inserted over the guide wire. The peel-away sheath was removed and the catheter was flushed with heparinized saline as per Hospital protocol. The catheter was affixed to the skin and a sterile dressing was applied. The patient tolerated the procedure well and there were no immediate complications. Reviewed by THIAGO Singer 07/11/2018 04:44 P Electronically Signed by Otis Bravo MD 07/12/2018 11:07 A
[2018-07-12] MEDS: D5W/0.45% SODIUM CHLORIDE 1,000 ML IV SCH (11:18)
--- NOTE | 2018-07-12 11:42 | IPNPDOC ---
Text Note Date of Service The patient was seen on 07/12/18. NOTE No acute events overnight. She does feel much better this am when she is sitting still. No BM or flatus since the sigmoidoscopy last evening. Denies nausea, emesis, or fevers. VSSAF NAD abd - soft, distended, TTP diffuse, no rebound or guarding labs - below lactic acid - 1 A) 68y/o female with colonic distention secondary to ileus vs. sigmoid stricture P) NPO barium enema STAT continue with laxatives will follow closely Lamin Mcbride DO A-FIB/CHADSVASC A-FIB History Current/History of A-Fib/PAF?: No VS,Fishbone, I+O VS, Fishbone, I+O Laboratory Tests 07/12/18 05:22 Red Blood Count 4.89, Mean Corpuscular Volume 90.4, Mean Corpuscular Hemoglobin 28.6, Mean Corpuscular Hemoglobin Concent 31.7 L, Red Cell Distribution Width 13.8, Calcium Level 8.0 L, Aspartate Amino Transf (AST/SGOT) 21, Alanine Aminotransferase (ALT/SGPT) 48, Alkaline Phosphatase 68, Total Bilirubin 0.5, Total Protein 6.4, Albumin 2.8 L Vital Signs Date Time Temp Pulse Resp B/P (MAP) Pulse Ox O2 Delivery O2 Flow Rate FiO2 07/12/18 10:22 3.0 07/12/18 08:52 94 140/90 07/12/18 06:00 98.1 18 97 I&O- Last 24 Hours up to 6 AM 07/12/18 06:00 Intake Total 1080 ml Output Total 1250 ml Balance -170 ml KARTIK MCBRIDE DO July 12, 2018 11:42
--- NOTE | 2018-07-12 12:45 | IPNPDOC ---
Text Note Date of Service The patient was seen on 07/12/18. NOTE Subjective: Patient was seen and examined at the bedside. Currently, patient r eports abdominal pain doesn't report any significant nausea this morning. Denies vomiting. Has not yet had a bowel movement for 2 days. Denies chest pain, shortness of breath or palpitations. Patient does have a Esquivel catheter in place. Objective: Vitals (See below) General: Lying in bed, no acute distress, comfortable, AAOx3 HEENT: NC, AT CVS: RRR, +S1S2 Lungs: There appears to be air entry bilaterally that is fair without evidence of rhonchi, rales or wheezing Abdomen: Abdomen again is noted to be soft, no significant distention diffuse tenderness which is mild is noted, hypoactive bowel sounds Extremities: Lower extremities are without edema, no calf tenderness Labs and Radiology: reviewed. Assessment and plan: Patient is a 68-year-old female with a PMHx of Metabolic syndrome, HTN, DLP, End stage COPD with O2 dependence (3-5 L), Diverticulosis, Tobacco abuse, Osteoporosis who presented to the ER with complaints of shortness of breath, associated with wheezing and cough. Patient was admitted to the hospital service for COPD exacerbation adn possibly aspiration pneumonia. The hospital course has been complicated by abdominal pain and distension and found to have large bowel obstruction with midsigmoid colon stricture and possibly ileus. She also had severe back pain with muscle spasms. Abdominal pain -2/2 colonic ileus and sigmoid colon stricture. s/p felexible simoidoscopy on 07/11/18 found to have mid sigmoid stricture, diverticulosis, no mass seen no signs of any malignancy. CT ab/pelv 07/09: No evidence of obstruction. Diffuse dilatation of the colon m ay represent an ileus. There is sigmoid diverticulosis without acute diverticulitis. There is mild thickening of the distal sigmoid colon which could represent chronic inflammatory changes but underlying neoplasm is not excluded. Gallstone again seen in the gallbladder. Abd Xray on 07/11/18 increased gaseous dilatation of colon No bowel movement after sigmoidoscopy. Barium enema pending on simethicone, dicyclomine, stool softeners, dulcolax. Also has recieved several doses of mag citrate and mineral enema. Dr Mcbride following. Acute COPD exacerbation; possibly 2/2 aspiration pneumonia -improved. - Currently, patient reports that her breathing is doing much better; denies any significant expectoration - Sputum culture 07/03: Negative; Unable to provide additional sputum sample since possible aspiration on 07/05 - CTA chest 07/02: No CT evidence of pulmonary embolus. Hyperinflation COPD with emphysematous changes. Otherwise no acute disease seen. - CXR 07/05: 1. Right lower lobe atelectasis or infiltrate. 2. Bibasilar chronic interstitial fibrosis. - s/p Unasyn for 5 days - c/w Prednisone 20; will continue to taper, advair, nebs. - c/w incentive spirometry - c/w Inhaled therapy as ordered s/p Intractable back pain - likely 2/2 musculoskeletal etiology - likely with muscle spasms - Patient currently does not experience any focal neurologic deficits; has full strength of her lower extremities - Patient currently does not want to pursue an MRI; risks and benefits have been discussed - c/w Flexeril and Ketorolac Urinary retention - possibly 2/2 constipation - Will correct constipation symptoms before pursuing further interventions - s/p Esquivel catheter insertion; will remove once regular BMs re-start Metabolic syndrome HTN - BP well controlled - c/w Amlodipine DLP - c/w Atorvastatin and ASA Tobacco abuse - Quit smoking 20 years ago Osteoporosis - Patient has been on Alendronate since 2012 - DEXA 08/2015 Mood disorder / Anxiety / Insomnia - c/w Trazodone - c/w Hydroxyzine for episodes of anxiety GI prophylaxis - c/w Protonix DVT prophylaxis - c/w Lovenox Disposition: - Surgical consultation A-FIB/CHADSVASC A-FIB History Current/History of A-Fib/PAF?: No VS,Fishbone, I+O VS, Fishbone, I+O Laboratory Tests 07/12/18 05:22 Red Blood Count 4.89, Mean Corpuscular Volume 90.4, Mean Corpuscular Hemoglobin 28.6, Mean Corpuscular Hemoglobin Concent 31.7 L, Red Cell Distribution Width 13.8, Calcium Level 8.0 L, Aspartate Amino Transf (AST/SGOT) 21, Alanine Biggs otransferase (ALT/SGPT) 48, Alkaline Phosphatase 68, Total Bilirubin 0.5, Total Protein 6.4, Albumin 2.8 L Vital Signs Date Time Temp Pulse Resp B/P (MAP) Pulse Ox O2 Delivery O2 Flow Rate FiO2 07/12/18 10:22 3.0 07/12/18 08:52 94 140/90 07/12/18 06:00 98.1 18 97 I&O- Last 24 Hours up to 6 AM 07/12/18 06:00 Intake Total 1080 ml Output Total 1250 ml Balance -170 ml THOMAS SOLOMON MD July 12, 2018 12:45
[2018-07-12 14:00] VITALS: BP 155/70
[2018-07-12] MEDS ORDERED: LIQUID POLIBAR PLUS 105% w/v 1900ML BTL As Ordered ONE (15:46)
[2018-07-12 18:00] VITALS: BP 168/77
[2018-07-12] MEDS: traZODone 50 MG TAB PO SCH (20:41)
[2018-07-12] MEDS: ASPIRIN 81 MG ENTERIC TAB PO SCH (20:41)
[2018-07-12 22:00] VITALS: BP 164/80
[2018-07-13] VITALS (9 sets, daily range): BP systolic 135–170; BP diastolic 66–84
[2018-07-13] MEDS: D5W/0.45% SODIUM CHLORIDE 1,000 ML IV SCH ×2 (00:08→12:18)
--- NOTE | 2018-07-13 00:20 | TRANSCARE ---
Transition of Care: Transition of Care Was contacted by nursing 07/12/18 at 2234 that patient's family requests to talk with someone about the results of the barium enema and plans; stated that they will be here until questions get answered. Discussed with attending and went to patient's room; 4 family members were present. Did not specifically discussed the result of the barium enema with the family as no report for barium enema at this time. Let the family know that per Dr. Mcbride's consultation note on 07/11, if there's no mechanical obstruction patient will be treated as [place]'s. Discussed with them the simethicone was ordered in the afternoon after barium enema by Dr. Mcbride. Family requested the patient to be on a diet; discussed with them that I will sign out to the day team regarding the family's wish to have patient on a diet instead of NPO status. GME ATTESTATION GME ATTESTATION My faculty preceptor for this patient encounter was physically present during the encounter and was fully available. All aspects of the patient interview, examination, medical decision making process, and medical care plan development were reviewed and approved by the faculty preceptor. The faculty preceptor is aware and concurs with the plan as stated in the body of this note and will attest to such by his/her cosignature. BLANCHE HARRIS DO July 13, 2018 00:20
[2018-07-13] MEDS: IPRATROPIUM 0.5MG/ALBUTEROL 2.5MG INH SOL UD 3ML (DUONEB)(J7620) NEB SCH ×6 (04:00→19:53)
[2018-07-13] MEDS: SODIUM CHLORIDE 0.9% INJ 10 ML SYR IV SCH ×2 (05:35→18:00)
[2018-07-13 05:57] LABS: HEMATOCRIT 46.1 % (36.0-47.0); HEMOGLOBIN 14.8 g/dl (12.0-15.5); MEAN CORPUSCULAR HEMOGLOBIN 29.4 pg (27.0-33.0); MEAN CORPUSCULAR HGB CONC 32.1 g/dl (32.0-36.5); MEAN CORPUSCULAR VOLUME 91.7 fl (80.0-96.0); PLATELET COUNT, AUTOMATED 272 10^3/uL (150-450); RED BLOOD COUNT 5.03 10^6/uL (4.00-5.40); WHITE BLOOD COUNT 20.4 10^3/uL (4.0-10.0)
[2018-07-13 06:22] LABS: ALBUMIN 3.2 GM/DL (3.2-5.2); ALT/SGPT 63 U/L (12-78); BILIRUBIN,TOTAL 0.5 MG/DL (0.2-1.0); BLOOD UREA NITROGEN 14 MG/DL (7-18); CARBON DIOXIDE LEVEL 35 MEQ/L (21-32); CHLORIDE LEVEL 101 MEQ/L (98-107); GLOMERULAR FILTRATION RATE > 60.0 (>39); GLUCOSE, FASTING 131 MG/DL (70-100); POTASSIUM SERUM 3.9 MEQ/L (3.5-5.1); SODIUM LEVEL 140 MEQ/L (136-145); TOTAL PROTEIN 6.1 GM/DL (6.4-8.2)
[2018-07-13] MEDS: ADVAIR HFA 230/21MCG INHALER INH SCH ×2 (07:45→19:53)
[2018-07-13 08:02] LABS: ATYPICAL LYMPH 2 % (0-5); LYMPHOCYTES 10 % (16-52); MONOCYTES 2 % (0-8); NEUTROPHILS 86 % (35-75); PLATELET ESTIMATE NORMAL (NORMAL)
[2018-07-13 08:03] LABS: ANISOCYTOSIS 1+
[2018-07-13] MEDS: DICYCLOMINE 10 MG CAP PO SCH (08:52)
[2018-07-13] MEDS: PANTOPRAZOLE 40MG TAB (PROTONIX) PO SCH (08:53)
[2018-07-13] MEDS: ENOXAPARIN 40 MG/0.4 ML SYRINGE (J1650) SC SCH (08:53)
[2018-07-13] MEDS: ATORVASTATIN 10 MG TAB PO SCH (08:53)
[2018-07-13] MEDS: DOCUSATE SODIUM 100 MG CAP PO SCH (08:53)
[2018-07-13] MEDS: CYCLOBENZAPRINE 5MG TABLET PO SCH (08:53)
[2018-07-13] MEDS: predniSONE 20 MG TAB PO SCH (08:53)
[2018-07-13] MEDS: amLODIPine 5 MG TAB PO SCH (08:58)
[2018-07-13] MEDS: SIMETHICONE 40MG/0.6ML DROPS 30ML PO SCH (09:00)
[2018-07-13] MEDS ORDERED: ERTAPENEM SODIUM 1 GM in NS MINI-BAG PLUS 50 ML IV ONE (12:00)
[2018-07-13 12:22] LABS: ABG BASE EXCESS 7.2 (-2.0-2.0); ABG HCO3 32.5 MEQ/L (22.0-26.0); ABG O2 SATURATION 88.6 % (95.0-99.0); ABG PARTIAL PRESSURE CO2 47.6 mmHg (35.0-45.0); ABG PARTIAL PRESSURE O2 51.3 mmHg (75.0-100.0); ABG STANDARD HCO3 30.8 MEQ/L (22.0-26.0); ABG pH (ARTERIAL) 7.452 UNITS (7.350-7.450)
[2018-07-13] MEDS ORDERED: PROPOFOL 200 MG/20 ML VIAL As Ordered ONE (12:45)
[2018-07-13] MEDS ORDERED: ROCURONIUM BROMIDE 50 MG/5 ML VIAL As Ordered ONE ×2 (12:45→17:52)
[2018-07-13] MEDS ORDERED: fentaNYL 250 MCG/5 ML INJECTION (J3010) As Ordered ONE (12:45)
[2018-07-13] MEDS ORDERED: LIDOCAINE 2% INJ 100 MG/5 ML SDV (FOR ANES.) As Ordered ONE (12:45)
[2018-07-13] MEDS ORDERED: MIDAZOLAM INJ 2 MG/2 ML VIAL (J2250) As Ordered ONE (12:46)
[2018-07-13] MEDS ORDERED: BUPIVACAINE HCL 0.25% 30 ML VIAL As Ordered ONE (13:27)
--- NOTE | 2018-07-13 13:54 | IPN ---
DATE: 07/13/2018 This is a 68-year-old woman admitted back on July 02, apparently with a chronic obstructive pulmonary disease (COPD) exacerbation. She subsequently developed some abdominal distension and has undergone a fairly extensive workup over the last 5 days or so for abdominal discomfort. She has had two CT scans during her hospital stay. She underwent a barium enema yesterday. Dr. Mcbride had been consulted and did a flexible sigmoidoscopic exam on July 11. Her clinical picture is of a distal bowel obstruction and the studies have been directed toward trying to identify a distal obstruction. No definite obstruction has been identified, although she was noted to have some mild narrowing in her sigmoid both on one CT, the barium enema, and the endoscopy. Her abdominal distension has persisted with marked distension of her right colon noted radiographically. Today, she is somewhat confused and complaining of abdominal pain. She has tenderness. Vital signs: Show that she has been generally afebrile over the last 24 hours. Her pulse is in the 90s to 100 now. Blood pressure is good and her pulse oximetry has ranged between 88 and 95 on some nasal cannula oxygen. Intake and output shows that yesterday she has 0 recorded for intake, though I suspect that her IV was running at that time and it has just not been recorded and she had 350 mL of urine output recorded. She had a barium enema yesterday in the afternoon and there is been no rectal output reported by family or the nurse. PHYSICAL EXAMINATION: The patient is an elderly woman lying quietly on the hospital bed. She appears to be dozing when I first went in to the room. She does arouse to voice and light touch. She says hello cheerily. She does complain of some abdominal pain. The family reports that she is quite confused today. Heart exam shows a regular rate and rhythm. Breath sounds are somewhat shallow and distant but clear with no rhonchi or wheezes. Her abdomen is somewhat distended. She has an old lower abdominal midline scar. There is tympany to percussion in the right mid and lower abdomen with tenderness on percussion. On palpation, the abdomen is fairly firmly distended. She has diffuse tenderness, which is most pronounced in the right midabdomen and extending down into the right lower quadrant just about to the suprapubic area where she has her point of maximal tenderness. Lower extremities show some mild edema and she has palpable radial and dorsalis pedis pulses bilaterally. Laboratory studies today show white count of 20,000 with a hemoglobin of 15, hematocrit of 46 and platelet count of 272,000. Her differential count shows 86% neutrophils, 10% lymphocytes, 2% monocytes. Chemistry shows sodium of 140, potassium 3.9, chloride 101, CO2 of 35, BUN of 14, creatinine 0.5 and glucose of 131. Her total protein is 6.1 with an albumin of 3.2. IMPRESSION The patient has some degree of narrowing in her distal sigmoid by CT, barium enema, and endoscopy. Her most recent x-ray was with the barium enema yesterday and she had a markedly distended right colon. Today she is reportedly more confused. Her white blood cell count has risen to 20,000. She has significant tenderness of the right midabdomen with tympany to percussion. It is certainly possible that she is developing ischemia of her right colon given the marked distension. This may all have started out as just an Ayo's type syndrome, but her pain has not remitted and she has not decompressed. I spoke with the daughter, who is her healthcare proxy, two nieces, the patient's sister, and her and I had a long discussion regarding issues in her treatment. The patient has had a DNR in place. The family and I discussed that she may have a problem that if the colon was decompressed would subsequently resolve and allow her to begin to recover. I advised them that it is possible that she is developing ischemic changes or pre rupture tears in the right colon that would require a right hemicolectomy to address this. I discussed with them that if we proceed with surgery, it is possible that she will require ventilatory support in the intensive care unit, perhaps for a short time or perhaps for a longer period of time. We discussed that an ostomy is quite possible and they did not think that this would be a big concern. After much discussion of the patient's medical status and the risks of allowing her colon to perforate, we have decided to proceed with surgery in hopes that I can decompress the right colon either with a large drain or perhaps a cecostomy. If the bowel appears nonviable, then I will proceed to a right colectomy and likely perform an ileostomy. I will have to see how things look when we get there. The family was counseled that it is impossible to see all paths that might come before us if we start by performing surgery, but they are willing to accept the unknown and proceed to surgery to try to relieve her marked colonic distension, which should at the very least reduce her abdominal pain. I will obtain a stat blood gas. She will be made nothing by mouth effective immediately, and I will give her dose of Invanz for preoperative antibiotic coverage. We will then proceed to the operating room and see what we find. NGHIA
[2018-07-13] MEDS ORDERED: ACETAMINOPHEN 1000MG 100ML IV BTL (OFIRMEV) (J0131 PER 10MG) As Ordered ONE (14:50)
--- NOTE | 2018-07-13 14:56 | IPNPDOC ---
Text Note Date of Service The patient was seen on 07/13/18. NOTE Subjective: Patient was seen and examined at the bedside. Continues to have ab dominal pain and bloating and nausea no change. Denies vomiting. No appetite Has not yet had a bowel movement. has not passed any gas either. Denies chest pain, shortness of breath or palpitations. Patient does have a Esquivel catheter in place. Had barium enema yesterday. Family Requesting diet last night . Confused this morning. Oxygen requirement is at baseline. No fever or chills. Surgery plans to take the patient to OR. Objective: Vitals (See below) General: Sitting up in chair , confused, mildly uncomfortable. HEENT: NC, AT, moist mucous membranes. CVS: RRR, +S1S2, no rub murmur or gallop. Lungs: There appears to be air entry bilaterally that is fair without evidence of rhonchi, rales or wheezing. distant breath sounds. Abdomen: Abdomen again is noted to be soft, diffuse tenderness , no guarding or rigidity, Bowel sounds could not be heard. Extremities: Lower extremities are without edema Labs and Radiology: reviewed. Assessment and plan: Patient is a 68-year-old female with a PMHx of Metabolic syndrome, HTN, DLP, End stage COPD with O2 dependence (3-5 L), Diverticulosis, Tobacco abuse, Osteoporosis who presented to the ER with complaints of shortness of breath, associated with wheezing and cough. Patient was admitted to the hospital service for COPD exacerbation and possibly aspiration pneumonia. The hospital course has been complicated by abdominal pain and distension and found to have large bowel obstruction with midsigmoid colon stricture and possibly ileus. She also had severe back pain with muscle spasms. Abdominal pain -2/2 colonic ileus and mid sigmoid colon stricture. Concern for colonic ischemia. s/p flexible sigmoidoscopy on 07/11/18 found to have mid sigmoid stricture, diverticulosis, no mass seen no signs of any malignancy. CT ab/pelv 07/09: No evidence of obstruction. Diffuse dilatation of the colon may represent an ileus. There is sigmoid diverticulosis without acute diverticulitis. There is mild thickening of the distal sigmoid colon which could represent chronic inflammatory changes but underlying neoplasm is not excluded. Gallstone again seen in the gallbladder. Abd Xray on 07/11/18 increased gaseous dilatation of colon. Colon now dilated to 14 cm. No bowel movement or gas after sigmoidoscopy and barium enema. Barium enema report pending on simethicone, dicyclomine, stool softeners, dulcolax. Also has received several doses of mag citrate and mineral enema. Surgery following. Discussed with Dr White. Will need to go to OR for colonic decompression Vs colonic resection if it is ischemic/necrosed. Post op course may be stormy. After procedure may need to upgrade the patient. Acute COPD exacerbation; possibly 2/2 aspiration pneumonia improved. Currently, patient reports that her breathing is doing much better; denies any significant expectoration Sputum culture 07/03: Negative; Unable to provide additional sputum sample since possible aspiration on 07/05 CTA chest 07/02: No CT evidence of pulmonary embolus. Hyperinflation COPD with emphysematous changes. Otherwise no acute disease seen. CXR 07/05: 1. Right lower lobe atelectasis or infiltrate. 2. Bibasilar chronic interstitial fibrosis. s/p Unasyn for 5 days c/w Prednisone 20; will continue to taper, advair, nebs. c/w incentive spirometry c/w Inhaled therapy as ordered s/p Intractable back pain - likely 2/2 musculoskeletal etiology - likely with muscle spasms Patient currently does not experience any focal neurologic deficits; has full strength of her lower extremities Patient currently does not want to pursue an MRI; risks and benefits have been discussed Urinary retention - possibly 2/2 constipation Will correct constipation symptoms before pursuing further interventions s/p Esquivel catheter insertion; will remove once regular BMs re-start Metabolic syndrome HTN BP well controlled c/w Amlodipine DLP c/w Atorvastatin and ASA when eating orally Tobacco abuse Quit smoking 20 years ago Osteoporosis Patient has been on Alendronate since 2012 DEXA 08/2015 Mood disorder / Anxiety / Insomnia c/w Trazodone when eating orally GI prophylaxis c/w Protonix DVT prophylaxis c/w Lovenox Disposition: Surgical consultation N[place]LEON,Shannan, I+O VS, Shannan, I+O Laboratory Tests 07/13/18 05:43 Red Blood Count 5.03, Mean Corpuscular Volume 91.7, Mean Corpuscular Hemoglobin 29.4, Mean Corpuscular Hemoglobin Concent 32.1, Red Cell Distribution Width 13.9, Calcium Level 8.0 L, Aspartate Amino Transf (AST/SGOT) 23, Alanine Aminotransferase (ALT/SGPT) 63, Alkaline Phosphatase 71, Total Bilirubin 0.5, Total Protein 6.1 L, Albumin 3.2 Vital Signs Date Time Temp Pulse Resp B/P (MAP) Pulse Ox O2 Delivery O2 Flow Rate FiO2 07/13/18 06:00 99.6 97 20 162/84 (110) 93 2.0 I&O- Last 24 Hours up to 6 AM 07/13/18 06:00 Intake Total 0 ml Output Total 1000 ml Balance -1000 ml THOMAS SOLOMON MD July 13, 2018 07:04
--- NOTE | 2018-07-13 15:02 | REP ---
BARIUM ENEMA SINGLE CONTRAST The procedure was performed under the direct supervision of Dr. bravo. The images were reviewed with Dr. bravo. The outside plant cable engineer film demonstrates diffuse dilation of the colon similar to the previous examination performed on 07/11/2018. Liquid barium was instilled into the colon and retrograde flow. There is free flow of contrast to the splenic flexure. There are mildly prominent haustral folds in the sigmoid likely representing chronic diverticulitis. There are a few scattered diverticula seen throughout the sigmoid. There is no stricture identified. The remainder of the colon is dilated to the level of the cecum. This likely represents colonic ileus or Holliday's syndrome. Impression: There is free flow of contrast to the splenic flexure. There are mildly prominent haustral folds in the sigmoid likely representing chronic diverticulitis. There are a few scattered diverticula seen throughout the sigmoid. There is no stricture identified. The remainder of the colon is dilated to the level of the cecum. This likely represents colonic ileus or Holliday's syndrome. 1.6 minutes of fluoroscopy time was utilized for this procedure. Reviewed by THIAGO Singer 07/12/2018 05:28 P Electronically Signed by Otis Bravo MD 07/13/2018 02:51 P
[2018-07-13] MEDS ORDERED: BUPIVACAINE LIPOSOME/PF 1.3% 20ML VIAL (13.3MG/ML)(EXPAREL)(C9290 PER1MG) As Ordered ONE (15:10)
[2018-07-13] MEDS ORDERED: BUPIVACAINE HCL 0.25% 10 ML VIAL As Ordered ONE (15:12)
[2018-07-13] MEDS ORDERED: SUGAMMADEX SODIUM 500 MG/5 ML VIAL (BRIDION) As Ordered ONE (15:35)
[2018-07-13] MEDS ORDERED: ONDANSETRON 4MG/2ML VIAL (J2405) As Ordered ONE (15:35)
[2018-07-13] MEDS ORDERED: dexameTHASONE 4 MG/ML 1ML VIAL (J1100) As Ordered ONE (15:35)
[2018-07-13] MEDS ORDERED: fentaNYL 100 MCG/2 ML INJECTION (J3010) IV PRN (16:15)
[2018-07-13] MEDS ORDERED: ACETAMINOPHEN 500 MG TAB PO PRN (16:15)
[2018-07-13] MEDS: LR 1,000 ML IV SCH (18:00)
[2018-07-13] MEDS ORDERED: fentaNYL 100 MCG/2 ML INJECTION (J3010) As Ordered ONE (18:36)
[2018-07-13] MEDS: NORCO, ANEXSIA 5/325MG TABLET (HYDROcodone/ACETAMINOPHEN) PO PRN (21:39)
[2018-07-14] VITALS (18 sets, daily range): BP systolic 112–172; BP diastolic 65–84
[2018-07-14] MEDS: IPRATROPIUM 0.5MG/ALBUTEROL 2.5MG INH SOL UD 3ML (DUONEB)(J7620) NEB SCH ×7 (00:40→23:21)
[2018-07-14] MEDS: MORPHINE 4 MG/ML 1ML VIAL/SYRINGE (J2270) IV PRN (01:36)
[2018-07-14] MEDS: LR 1,000 ML IV SCH ×3 (01:36→22:30)
[2018-07-14 05:22] LABS: HEMATOCRIT 34.5 % (36.0-47.0); HEMOGLOBIN 11.2 g/dl (12.0-15.5); MEAN CORPUSCULAR HEMOGLOBIN 30.1 pg (27.0-33.0); MEAN CORPUSCULAR HGB CONC 32.5 g/dl (32.0-36.5); MEAN CORPUSCULAR VOLUME 92.7 fl (80.0-96.0); PLATELET COUNT, AUTOMATED 254 10^3/uL (150-450); RED BLOOD COUNT 3.72 10^6/uL (4.00-5.40); WHITE BLOOD COUNT 23.7 10^3/uL (4.0-10.0)
[2018-07-14 05:43] LABS: LYMPHOCYTES 6 % (16-52); MONOCYTES 4 % (0-8); NEUTROPHILS 89 % (35-75); PLATELET ESTIMATE NORMAL (NORMAL)
[2018-07-14] MEDS: SODIUM CHLORIDE 0.9% INJ 10 ML SYR IV SCH ×2 (05:43→16:01)
[2018-07-14 05:48] LABS: ALBUMIN 2.4 GM/DL (3.2-5.2); ALT/SGPT 56 U/L (12-78); BILIRUBIN,TOTAL 0.4 MG/DL (0.2-1.0); BLOOD UREA NITROGEN 25 MG/DL (7-18); CALCIUM LEVEL 7.8 MG/DL (8.8-10.2); CARBON DIOXIDE LEVEL 35 MEQ/L (21-32); CHLORIDE LEVEL 104 MEQ/L (98-107); CREATININE FOR GFR 0.74 MG/DL (0.55-1.30); GLOMERULAR FILTRATION RATE > 60.0 (>39); GLUCOSE, FASTING 173 MG/DL (70-100); MAGNESIUM LEVEL 2.9 MG/DL (1.8-2.4); POTASSIUM SERUM 4.4 MEQ/L (3.5-5.1); SODIUM LEVEL 141 MEQ/L (136-145); TOTAL PROTEIN 5.4 GM/DL (6.4-8.2)
[2018-07-14] MEDS: ADVAIR HFA 230/21MCG INHALER INH SCH ×2 (07:39→19:14)
[2018-07-14] MEDS: methylPREDNISolone INJ 40 MG/1 ML VIAL (J2920) IV SCH (08:32)
[2018-07-14] MEDS: PANTOPRAZOLE 40MG INJ (PROTONIX) (C9113) IV SCH (08:32)
[2018-07-14] MEDS: amLODIPine 5 MG TAB PO SCH (08:33)
--- NOTE | 2018-07-14 08:55 | IPNPDOC ---
Text Note Date of Service The patient was seen on 07/14/18. NOTE Subjective: Patient was seen and examined at the bedside. Somnolent but when c alled woke up easily and greeted me. Had OR yesterday afternoon. Had ex laparoscopy minilaparotomy colon decompression and colostomy. Patient was found to have distended colon with serosal tear. Telemetry no events. No increase in oxygen requirement. Denies any worsening of SOB. No vomiting . Objective: Vitals (See below) General: lying in bed, no no acute discomfort somnolent but easily arousable. HEENT: NC, AT, dry mucous membranes. anicteric eyes. CVS: +S1S2, no rub murmur or gallop. sinus tachycardia. Lungs: There appears to be air entry bilaterally that is fair without evidence of rhonchi, rales or wheezing. distant breath sounds. Abdomen: Abdomen again is noted to be soft, not distended, diffuse tenderness. Has colostomy in place, no bowel sounds heard. Extremities: Lower extremities are without edema Labs and Radiology: reviewed. Assessment and plan: Patient is a 68-year-old female with a PMHx of Metabolic syndrome, HTN, DLP, End stage COPD with O2 dependence (3-5 L), Diverticulosis, Tobacco abuse, Osteoporosis who presented to the ER with complaints of shortness of breath, associated with wheezing and cough. Patient was admitted to the hospital service for COPD exacerbation and possibly aspiration pneumonia. The hospital course has been complicated by abdominal pain and distension and found to have large bowel obstruction with midsigmoid colon stricture and possibly ileus. She also had severe back pain with muscle spasms. [place]'s syndrome colonic ileus with massive distension with serosal tear, No obstruction seen in barium enema or laparotomy. Underwent colonic decompression and colostomy creation on 07/13/[address] White. s/p flexible sigmoidoscopy on 07/11/18 showed twisting vs stricture in mid sigmoid colon. Barium enema did not show any stricture. continue IVF, Ertapenum. sips of water and ice chips Advance Diet as per surgery. Diverticulosis with possible chronic diverticulitis will continue with Ertapenem Acute COPD exacerbation; possibly 2/2 aspiration pneumonia resolved. c/w methyl pred till patient eating will continue to taper, advair, nebs. c/w incentive spirometry Chronic respiratory failure with hypoxia currently patient is on her usual dosage of oxygen s/p Intractable back pain - likely 2/2 musculoskeletal etiology - likely with muscle spasms Patient currently does not experience any focal neurologic deficits; has full strength of her lower extremities Patient did not want to pursue an MRI; risks and benefits have been discussed Urinary retention - possibly 2/2 constipation s/p Esquivel catheter insertion; will remove once regular BMs re-start Metabolic syndrome HTN BP well controlled c/w Amlodipine with hold parameters. DLP c/w Atorvastatin and ASA when eating orally Tobacco abuse Quit smoking 20 years ago Osteoporosis Patient has been on Alendronate since 2012 DEXA 08/2015 Mood disorder / Anxiety / Insomnia c/w Trazodone when eating orally GI prophylaxis c/w Protonix DVT prophylaxis c/w Lovenox VS,Fishbone, I+O VS, Fishbone, I+O Laboratory Tests 07/14/18 04:27 Red Blood Count 3.72 L, Mean Corpuscular Volume 92.7, Mean Corpuscular Hemoglobin 30.1, Mean Corpuscular Hemoglobin Concent 32.5, Red Cell Distribution Width 14.0, Calcium Level 7.8 L, Aspartate Amino Transf (AST/SGOT) 21, Alanine Aminotransferase (ALT/SGPT) 56, Alkaline Phosphatase 61, Total Bilirubin 0.4, Total Protein 5.4 L, Albumin 2.4 #L Vital Signs Date Time Temp Pulse Resp B/P (MAP) Pulse Ox O2 Delivery O2 Flow Rate FiO2 07/14/18 08:00 97.8 106 22 126/71 (89) 94 3.0 I&O- Last 24 Hours up to 6 AM 07/14/18 06:00 Intake Total 2720 ml Output Total 1675 ml Balance 1045 ml THOMAS SOLOMON MD July 14, 2018 08:55
[2018-07-14] MEDS ORDERED: ERTAPENEM SODIUM 1 GM in NS MINI-BAG PLUS 50 ML IV SCH (09:00)
[2018-07-14] MEDS: HEPARIN SOD (PORCINE) 5000 UNITS/ML VIAL SQ SCH ×2 (11:44→21:38)
--- NOTE | 2018-07-14 11:45 | REP ---
PORTABLE CHEST: AP portable view of the chest is performed and compared to a prior study of 07/05/2018. Patient is rotated towards the left. Cardiomediastinal silhouette is grossly unchanged. There is elevation of the left hemidiaphragm. There appear to be bibasilar fibroatelectatic changes. No gross acute infiltrate is seen. Electronically Signed by Otis Bravo MD 07/14/2018 12:29 P
[2018-07-14 15:00] LABS: ABG BASE EXCESS 1.8 (-2.0-2.0); ABG HCO3 26.5 MEQ/L (22.0-26.0); ABG O2 SATURATION 61.1 % (95.0-99.0); ABG PARTIAL PRESSURE CO2 41.8 mmHg (35.0-45.0); ABG STANDARD HCO3 25.4 MEQ/L (22.0-26.0); ABG TOTAL CO2 27.8 MEQ/L (23.0-31.0)
[2018-07-14 15:17] LABS: ABG BASE EXCESS 3.1 (-2.0-2.0); ABG HCO3 28.6 MEQ/L (22.0-26.0); ABG O2 SATURATION 68.6 % (95.0-99.0); ABG PARTIAL PRESSURE CO2 47.4 mmHg (35.0-45.0); ABG STANDARD HCO3 26.7 MEQ/L (22.0-26.0); ABG pH (ARTERIAL) 7.398 UNITS (7.350-7.450)
[2018-07-14 15:19] LABS: ABG PARTIAL PRESSURE O2 36.2 mmHg (75.0-100.0)
--- NOTE | 2018-07-14 15:57 | PHACANCOPD ---
PHARMACY VANCOMYCIN DOSING Pt Demographics Demographics Patient Age:68 , Weight:77.000 , Gender: female Adjusted Body Weight Date: 07/14/18, Adjusted Body Weight: [59] Kg Events Past 24 Hours Events Past 24 Hours: YES: Elevation in WBC; NO: Dialysis, Diuretic Therapy, Change in CrCl, Fever, Pending Diagnostics, Pending Procedures, Other Vancomycin Vancomycin indication: enterococcus coverage s/p gut surgery Vancomycin Target Ranges: 15-20 mcg/ml Vancomycin Load Y/N: No Load Dose Date Time Vancomycin Load Dose: Date: Time: Vancomycin Dose Date: 07/14/18. Current Vancomycin Dose: [1g IV q12h @16] Intermittent Dosing?: No Labs Labs Item Value Date Time Creatinine 0.50 MG/DL L 07/12/18521 Creatinine 0.50 MG/DL L 07/13/18 0543 Creatinine 0.74 MG/DL 07/14/18 0427 White Blood Count 15.0 10^3/uL H 07/11/18 0550 White Blood Count 18.7 10^3/uL H 07/12/18 0522 White Blood Count 20.4 10^3/uL H 07/13/18 0543 White Blood Count 23.7 10^3/uL H 07/14/18 0427 Creatinine Clearance Date:07/14/18. Creatinine Clearance: [~65 ml/min using adjusted BW]. Assessment and Plan Maintaining Current Dose?: Yes Reason for dose change: No Dose Change Pharmacist Note Pharmacist Note Date: 07/14/18. Pharmacist note: today pt has been changed from Ertapenem monothe rapy to Meropenem and Vancomycin s/p laparoscopy/colostomy (07/13/18). She was last on vancomycin at our facility ~1 year ago. I have started her on Vancomycin 1g IV q12h. We will continue to monitor and order a trough within a few doses. Balbir Anne Pharm.D. July 14, 2018 15:57
[2018-07-14] MEDS: VANCOMYCIN HCL 1,000 MG, VIAL MATE ADAPTER 1 EACH in D5W 250 ML IV SCH (16:01)
[2018-07-14 16:10] LABS: VENOUS BASE EXCESS 3.4 (-2.0-2.0); VENOUS HCO3 29.3 MEQ/L (23.0-27.0); VENOUS O2 SATURATION 53.9 % (60.0-80.0); VENOUS PARTIAL PRESSURE CO2 51.1 mmHg (38.0-50.0); VENOUS PARTIAL PRESSURE O2 29.6 mmHg (30.0-50.0); VENOUS PH 7.377 UNITS (7.330-7.430); VENOUS STANDARD HCO3 26.6 MEQ/L; VENOUS TOTAL CO2 30.9 MEQ/L (24.0-28.0)
[2018-07-14] MEDS ORDERED: LR 1,000 ML IV ONE (21:30)
--- NOTE | 2018-07-14 21:40 | IPNPDOC ---
Text Note Date of Service The patient was seen on 07/14/18. NOTE Pt has been hypoxic throughout the day with increasing O2 need. Now pt is requ iring NRM. She is somnolent, but responsive and not in distress. CXR is unremarkable. She is DNR/DNI. Pt is transferred to ICU for BiPaP. Previously ABG had shown no CO2 retention, only hypoxia. I think abdominal surgery, mental status and acute illness together has played role in her hypoxia due to poor inspiratory effort. Pt also has had minimal urine output throughout the day. While up until , she had good urine output but with significant negative balance. I think pt is intravascularly depleted. Pt has Esquivel, so no issues with retention. Will give a litre of LR bolus, and increase baseline fluid rate from 50 c to 100cc/hr. Continue to monitor. A-FIB/CHADSVASC A-FIB History Current/History of A-Fib/PAF?: No VS,Fishbone, I+O VS, Fishbone, I+O Laboratory Tests 07/14/18 04:27 Red Blood Count 3.72 L, Mean Corpuscular Volume 92.7, Mean Corpuscular Hemoglobin 30.1, Mean Corpuscular Hemoglobin Concent 32.5, Red Cell Distribution Width 14.0, Calcium Level 7.8 L, Aspartate Amino Transf (AST/SGOT) 21, Alanine Aminotransferase (ALT/SGPT) 56, Alkaline Phosphatase 61, Total Bilirubin 0.4, Total Protein 5.4 L, Albumin 2.4 #L Vital Signs Date Time Temp Pulse Resp B/P (MAP) Pulse Ox O2 Delivery O2 Flow Rate FiO2 07/14/18 20:00 99.0 109 20 143/67 (92) 2.0 07/14/18 16:00 92 I&O- Last 24 Hours up to 6 AM 07/14/18 06:00 Intake Total 2720 ml Output Total 1675 ml Balance 1045 ml JESUS PRESLEY MD July 14, 2018 21:40
--- NOTE | 2018-07-14 21:46 | REPVR ---
EXAM: XR Chest, 1 View EXAM DATE/TIME: 07/14/2018 8:57 PM CLINICAL HISTORY: 68 years old, female; Signs and symptoms; Other: Hypoxia; Additional info: Worsening hypoxia TECHNIQUE: Imaging protocol: XR of the chest, 1 view. COMPARISON: CR PORTABLE CHEST X-RAY 07/14/2018 9:36 AM FINDINGS: Lungs: Minimal opacity in the left lateral lung base, likely atelectasis. No pulmonary consolidation. The right lung is clear. The pulmonary vasculature has a normal appearance. Pleural space: Unremarkable. No pleural effusion. No pneumothorax. Heart/Mediastinum: The cardiac silhouette is unremarkable. The mediastinal contour is unremarkable. Diaphragm: Mild elevation left diaphragm, unchanged. Upper abdomen: The bowel gas pattern of the upper abdomen is unremarkable. Bones/joints: Unremarkable. IMPRESSION: Mild elevation left diaphragm with opacity in the left lung base, likely atelectasis. Electronically signed by: Donnell Leiva On 07/14/2018 21:46:04 PM
[2018-07-14 21:56] LABS: ABG BASE EXCESS 7.3 (-2.0-2.0); ABG HCO3 33.2 MEQ/L (22.0-26.0); ABG O2 SATURATION 93.5 % (95.0-99.0); ABG PARTIAL PRESSURE CO2 54.5 mmHg (35.0-45.0); ABG PARTIAL PRESSURE O2 70.8 mmHg (75.0-100.0); ABG STANDARD HCO3 31.1 MEQ/L (22.0-26.0); ABG TOTAL CO2 34.9 MEQ/L (23.0-31.0); ABG pH (ARTERIAL) 7.403 UNITS (7.350-7.450)
[2018-07-15] VITALS (13 sets, daily range): BP systolic 124–165; BP diastolic 56–72
[2018-07-15] MEDS: IPRATROPIUM 0.5MG/ALBUTEROL 2.5MG INH SOL UD 3ML (DUONEB)(J7620) NEB SCH ×5 (03:09→20:00)
[2018-07-15] MEDS: VANCOMYCIN HCL 1,000 MG, VIAL MATE ADAPTER 1 EACH in D5W 250 ML IV SCH ×2 (03:37→16:02)
[2018-07-15 03:52] LABS: BASO # 0.1 10^3/uL (0.0-0.2); BASO % 0.5 % (0.0-1.0); HEMATOCRIT 26.4 % (36.0-47.0); LYMPH # 4.2 10^3/uL (1.5-4.5); LYMPH % 16.1 % (24.0-44.0); MEAN CORPUSCULAR HGB CONC 31.1 g/dl (32.0-36.5); MEAN CORPUSCULAR VOLUME 93.3 fl (80.0-96.0); MONO % 7.6 % (0.0-5.0); NEUTROPHILS # 18.5 10^3/uL (1.8-7.7); NEUTROPHILS % 70.8 % (36.0-66.0); PLATELET COUNT, AUTOMATED 222 10^3/uL (150-450); RED BLOOD COUNT 2.83 10^6/uL (4.00-5.40); WHITE BLOOD COUNT 26.2 10^3/uL (4.0-10.0)
[2018-07-15 04:07] LABS: HEMOGLOBIN 8.2 g/dl (12.0-15.5)
[2018-07-15 04:34] LABS: ALBUMIN 2.2 GM/DL (3.2-5.2); ALT/SGPT 167 U/L (12-78); BILIRUBIN,TOTAL 0.4 MG/DL (0.2-1.0); BLOOD UREA NITROGEN 46 MG/DL (7-18); CALCIUM LEVEL 7.7 MG/DL (8.8-10.2); CARBON DIOXIDE LEVEL 34 MEQ/L (21-32); CHLORIDE LEVEL 104 MEQ/L (98-107); CREATININE FOR GFR 0.76 MG/DL (0.55-1.30); GLOMERULAR FILTRATION RATE > 60.0 (>39); GLUCOSE, FASTING 129 MG/DL (70-100); POTASSIUM SERUM 4.5 MEQ/L (3.5-5.1); SODIUM LEVEL 139 MEQ/L (136-145); TOTAL PROTEIN 5.1 GM/DL (6.4-8.2)
[2018-07-15] MEDS: SODIUM CHLORIDE 0.9% INJ 10 ML SYR IV SCH ×2 (06:00→18:00)
[2018-07-15] MEDS: LR 1,000 ML IV SCH ×2 (06:20→16:02)
--- NOTE | 2018-07-15 06:57 | IPN ---
DATE OF VISIT: 07/14/2018 HISTORY: The patient is now postoperative day number one from a laparoscopy with mini laparotomy, decompression of the right colon and creation of a right colostomy. She tolerated the procedure well. She is in the progressive care unit (PCU) for enhanced monitoring. She has remained confused according to the nurse and has not been very interactive with her family or the staff. VITAL SIGNS: Vital signs show that she has been afebrile over the past 24 hours. Her pulse has varied but has ranged generally between 93- 116. Blood pressure is good and her oxygenation on 3 liters of nasal cannula has been and the 92-94 range. Intake and output shows that yesterday she had 2200 in with 2400 out. She continues to have an adequate urine output in her Esquivel. PHYSICAL EXAMINATION: General: The patient is lying quietly in bed. She flickers her eyes open at times to light touch and voice, but is not currently interactive with me. HEENT: Sclerae are anicteric. Skin: The skin is warm and dry. Heart: Heart exam shows a regular rhythm. Lungs: Sounds show a faint inspiratory wheeze on the left, the right lung is clear. Abdomen: Remains somewhat distendded. Her dressings have a small amount of old blood, particularly along the midline. Her ostomy is viable but with no output in the ostomy appliance. She does appear to have some tenderness on palpation in the upper abdomen. This is based on seeing facial grimacing with palpation. LABORATORY STUDIES: Laboratory studies today showed a white count of 24,000, hemoglobin of 11, hematocrit of 34, and a platelet count of 254,000. Differential count showed 89% neutrophils, 1 band, 6 lymphocytes and 4 monocytes. Chemistry profile shows sodium of 141, potassium 4.4, chloride 104, CO2 of 35, BUN of 25, creatinine 0.7 and a glucose of 173. Total protein is 5.4 with an albumin of 2.4. IMAGING: A chest x-ray was done this morning which shows no definite large pulmonary infiltrate. The patient was fairly rotated and the left lower lung field and the diaphragm were somewhat obscured by the heart. IMPRESSION: The patient remains quite frail in the progressive care unit. She has had a rise in her white blood cell count and her hematocrit is also down slightly today. Dr. Florian placed the patient on antibiotics with ertapenem this morning. She had received one dose preoperatively for her bowel surgery. PLAN: The patient will be continued on appropriate supportive measures. I think the antibiotics are appropriate. The source of her rising white count is not clear to me. There was not any obvious intra-abdominal process to account for her increasing white count and a chest x-ray shows no definite pulmonary infiltrate. We will continue to monitor her mental state. She is a DO NOT RESUSCITATE (DNR) and it may be that she will not survive this hospitalization. I will wait to see how she responds to the antibiotics. We may need to decide, if she does not come around and eat on her own, whether tube feeds or total parenteral nutrition are appropriate. LISBETD
[2018-07-15] MEDS ORDERED: KETOROLAC 30 MG/ML VIAL (J1885) IV ONE ×2 (07:00→16:15)
[2018-07-15] MEDS: ADVAIR HFA 230/21MCG INHALER INH SCH ×2 (08:36→20:08)
--- NOTE | 2018-07-15 08:37 | IPNPDOC ---
Text Note Date of Service The patient was seen on 07/15/18. NOTE No acute events overnight. She is on Bipap and is still confused. Denies nausea, emesis, or pain. Minimal output from the colostomy. Afebrile, HR - 90s, O2Sat - 90 on Bipap. Pressure is stable without support. 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 Florian start TPN prognosis is poor will follow Lamin Mcbride DO A-FIB/CHADSVASC A-FIB History Current/History of A-Fib/PAF?: No VS,Fishbone, I+O VS, Fishbone, I+O Laboratory Tests 07/15/18 03:35 Red Blood Count 2.83 L, Mean Corpuscular Volume 93.3, Mean Corpuscular Hemoglobin 29.0, Mean Corpuscular Hemoglobin Concent 31.1 L, Red Cell Distribution Width 14.4, Neutrophils (%) (Auto) 70.8 H, Lymphocytes (%) (Auto) 16.1 L, Monocytes (%) (Auto) 7.6 H, Eosinophils (%) (Auto) 0.0, Basophils (%) (Auto) 0.5, Neutrophils # (Auto) 18.5 H, Lymphocytes # (Auto) 4.2, Monocytes # (Auto) 2.0 H, Eosinophils # (Auto) 0.0, Basophils # (Auto) 0.1, Calcium Level 7.7 L, Aspartate Amino Transf (AST/SGOT) 108 H, Alanine Aminotransferase (ALT/SGPT) 167 H, Alkaline Phosphatase 50, Total Bilirubin 0.4, Total Protein 5.1 L, Albumin 2.2 L Vital Signs Date Time Temp Pulse Resp B/P (MAP) Pulse Ox O2 Delivery O2 Flow Rate FiO2 07/15/18 06:15 91 4.0 07/15/18 05:25 60 07/15/18 04:30 94 140/63 (88) 5/6/19 04:00 99.1 20 I&O- Last 24 Hours up to 6 AM 07/15/18 06:00 Intake Total 2785 ml Output Total 785 ml Balance 2000 ml KARTIK MCBRIDE DO July 15, 2018 08:37
[2018-07-15] MEDS: PANTOPRAZOLE 40MG INJ (PROTONIX) (C9113) IV SCH ×2 (09:00→20:23)
[2018-07-15] MEDS: HEPARIN SOD (PORCINE) 5000 UNITS/ML VIAL SQ SCH ×2 (09:00→20:23)
[2018-07-15] MEDS: MEROPENEM INJ 1 GM in APPROPRIATE DILUENT 1 EA IV SCH ×2 (09:00→17:07)
[2018-07-15] MEDS: amLODIPine 5 MG TAB PO SCH (09:00)
[2018-07-15] MEDS: methylPREDNISolone INJ 40 MG/1 ML VIAL (J2920) IV SCH (09:00)
[2018-07-15 09:13] LABS: ABG HCO3 31.5 MEQ/L (22.0-26.0); ABG O2 SATURATION 92.6 % (95.0-99.0); ABG PARTIAL PRESSURE CO2 51.4 mmHg (35.0-45.0); ABG PARTIAL PRESSURE O2 63.5 mmHg (75.0-100.0); ABG STANDARD HCO3 29.8 MEQ/L (22.0-26.0); ABG TOTAL CO2 33.1 MEQ/L (23.0-31.0); ABG pH (ARTERIAL) 7.405 UNITS (7.350-7.450)
--- NOTE | 2018-07-15 09:45 | RO ---
DATE OF PROCEDURE: 07/13/2018 PREOPERATIVE DIAGNOSIS: Marked colonic distention, possible colonic ischemia. POSTOPERATIVE DIAGNOSIS: Marked colonic distention with serosal tear of cecum. PROCEDURE PERFORMED: Laparoscopy, mini laparotomy with decompression of right colon, and creation of cecal colostomy in right upper quadrant. SURGEON: Dr. Will White ELECTRICAL SOLDERER: ANESTHESIA: General. INDICATIONS FOR PROCEDURE: The patient is a 68-year-old woman who presented to the hospital initially with an exacerbation of her chronic lung disease but subsequently developed marked colonic distention. She has undergone several tests including a CT scan, barium enema and flexible sigmoidoscopic exam. These do not identify a definite complete obstructing lesion in the colon, though there is some mild narrowing in the sigmoid colon. However, her right colon has remained markedly distended and she has tenderness on exam now with some developing confusion. There is concern that she may have ischemic changes of the bowel and she is now for laparoscopy and possible laparotomy for decompression of her colon. OPERATIVE PROCEDURE: The patient was brought to the operating room where she was placed under general endotracheal anesthesia. The patient's abdomen was prepped and draped in a sterile fashion. Local anesthesia was infiltrated at the trocar sites as needed. A short incision was made in the left upper quadrant. A Veress needle was inserted and after positive hanging drop test the abdomen was inflated with carbon dioxide gas. A 5 mm port was placed over the 5 mm scope and advanced through the abdominal wall without difficulty. Inspection revealed a markedly distended right colon which filled the entire midabdomen. There did not appear to be any definite ischemic changes evident, but it was quite distended, I would estimate to 15 cm. It was impossible to rotate the colon because it was so tensely distended. A small midline incision was made over the area of the distended colon. The colon was gently manipulated and the region of the cecum was identified. Two stay sutures of #2-0 silk were placed in the wall of the bowel through a tenia and an aspirating trocar was inserted into the bowel and placed on suction. A large amount of air and approximately 500 mL of liquid stool were aspirated from the right colon with marked decompression. Some additional air was massaged by external abdominal massage from the transverse colon toward the right colon and aspirated. The stay sutures were held up and a 55 mm DARION was placed across the portion of the wall of the colon to excise and close the puncture aspiration spot. With the right colon now decompressed, it was possible to manipulate this. The right colon appeared quite mobile. The midline incision was then closed with interrupted #1 Vicryl sutures in the fascia. A second 5 mm port was placed in the left midabdomen after reinflating the abdomen. The laparoscope was used to identify the area of the cecum. This was grasped with the grasper through the new trocar site. I elected to create an ostomy from the cecal or proximal ascending colon region on the right side of the abdomen to allow decompression. The natural lie of the colon would have placed this in the right lower quadrant, but this would have placed this drainage area in a skin fold, so I moved this into the right upper quadrant where there did not appear to be enough tension to preclude using this as the site for the stoma. Therefore, a small circular incision was made in the right upper quadrant over the area of the rectus muscle. The subcutaneous tissues were divided transversely. The fascia was opened and the muscles were spread and the posterior fascia was also opened. The wall of the colon was delivered through this opening. Several sutures were placed from the rectus fascia to the wall of the colon to maintain the position of the bowel and also in hopes that this would help prevent herniation around the bowel. The side of the colon was then opened and the ostomy was matured with four corner everting sutures of #3-0 Vicryl and multiple additional #3-0 Vicryl sutures. This was formed as a side ostomy or what amounted to a Nava's hernia equivalent with the bowel opened for venting. This was not a dual-lumen ostomy. An ostomy appliance was placed over this wound. The other wounds were closed after deflating the abdomen with skin misha. The patient tolerated the procedure well. She was awakened in the operating room, extubated and moved to the recovery room in stable condition. NGHIA
--- NOTE | 2018-07-15 10:51 | IPNPDOC ---
Text Note Date of Service The patient was seen on 07/15/18. NOTE Subjective: Patient was seen and examined at the bedside. Somnolent but when c cassied woke up. Patient was hypoxic last night with inadequate respiratory efforts so was put on BIPAP and moved to ICU. This morning minimal output in the colostomy bag, decreased urine output . Continues to have poor inspiratory effort, Unable to say what bothers her, she remains confused. She is not doing well after the surgery . Prognosis is guarded. Objective: Vitals (See below) General: lying in bed, confused. Noted to have labored breathing. HEENT: NC, AT, dry mucous membranes. anicteric eyes. CVS: +S1S2, no rub murmur or gallop. sinus tachycardia. Lungs: There appears to be air entry bilaterally that is fair without evidence of rhonchi, rales or wheezing. distant breath sounds. Abdomen: Abdomen again is noted to be soft, not distended, diffuse tenderness. Has colostomy in place, minimal bowel sounds. Extremities: Lower extremities are without edema Labs and Radiology: reviewed. Assessment and plan: Patient is a 68-year-old female with a PMHx of Metabolic syndrome, HTN, DLP, End stage COPD with O2 dependence (3-5 L), Diverticulosis, Tobacco abuse, Osteoporosis who presented to the ER with complaints of shortness of breath, associated with wheezing and cough. Patient was admitted to the hospital service for COPD exacerbation and possibly aspiration pneumonia. The hospital course has been complicated by abdominal pain and distension and found to have large bowel obstruction with midsigmoid colon stricture and possibly ileus. She also had severe back pain with muscle spasms. Metabolic encephalopathy due to hypoxia and general sickness. Acute hypoxic respiratory failure due to inadequate effort of breathing after abdominal surgery. 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 Underwent colonic decompression and colostomy creation on 07/13/[address] White. s/p flexible sigmoidoscopy on 07/11/18 showed twisting vs stricture in mid sigmoid colon. Barium enema did not show any stricture. continue IVF, Meropenem and vancomycin. sips of water and ice chips Diet as per surgery. Diverticulosis with possible chronic diverticulitis will continue with meropenem and vancomycin Acute COPD exacerbation; possibly 2/2 aspiration pneumonia resolved. c/w methyl pred till patient eating will continue to taper, advair, nebs. c/w incentive spirometry Chronic respiratory failure with hypoxia currently patient is on her usual dosage of oxygen s/p Intractable back pain - likely 2/2 musculoskeletal etiology - likely with muscle spasms Patient currently does not experience any focal neurologic deficits; has full strength of her lower extremities Patient did not want to pursue an MRI; risks and benefits have been discussed Urinary retention - possibly 2/2 constipation s/p Esquivel catheter insertion; will remove once regular BMs re-start Metabolic syndrome HTN BP well controlled c/w Amlodipine with hold parameters. DLP c/w Atorvastatin and ASA when eating orally Tobacco abuse Quit smoking 20 years ago Osteoporosis Patient has been on Alendronate since 2012 DEXA 08/2015 Mood disorder / Anxiety / Insomnia c/w Trazodone when eating orally GI prophylaxis c/w Protonix DVT prophylaxis c/w heparin A-FIB/CHADSVASC A-FIB History Current/History of A-Fib/PAF?: No VS,Fishbone, I+O VS, Fishbone, I+O Laboratory Tests 07/15/18 03:35 Red Blood Count 2.83 L, Mean Corpuscular Volume 93.3, Mean Corpuscular Hemoglobin 29.0, Mean Corpuscular Hemoglobin Concent 31.1 L, Red Cell Distribution Width 14.4, Neutrophils (%) (Auto) 70.8 H, Lymphocytes (%) (Auto) 16.1 L, Monocytes (%) (Auto) 7.6 H, Eosinophils (%) (Auto) 0.0, Basophils (%) (Auto) 0.5, Neutrophils # (Auto) 18.5 H, Lymphocytes # (Auto) 4.2, Monocytes # (Auto) 2.0 H, Eosinophils # (Auto) 0.0, Basophils # (Auto) 0.1, Calcium Level 7.7 L, Aspartate Amino Transf (AST/SGOT) 108 H, Alanine Aminotransferase (ALT/SGPT) 167 H, Alkaline Phosphatase 50, Total Bilirubin 0.4, Total Protein 5.1 L, Albumin 2.2 L Vital Signs Date Time Temp Pulse Resp B/P (MAP) Pulse Ox O2 Delivery O2 Flow Rate FiO2 07/15/18 09:00 92 135/62 07/15/18 08:30 60 07/15/18 08:00 97.8 24 92 07/15/18 06:15 4.0 I&O- Last 24 Hours up to 6 AM 07/15/18 05:59 Intake Total 3065 ml Output Total 635 ml Balance 2430 ml THOMAS SOLOMON MD July 15, 2018 10:51
--- NOTE | 2018-07-15 11:39 | REP ---
Bilateral lower extremity Duplex Doppler venous ultrasound: Real time compression and duplex Doppler interrogation of the bilateral lower extremity deep venous system is performed. Bilaterally, the common femoral, superficial femoral and popliteal veins are fully compressible with transducer pressure and demonstrate normal spontaneous and phasic flow, without evidence of deep venous thrombosis. Impression: No evidence of deep venous thrombosis of the bilateral lower extremity femoral popliteal venous system. Electronically Signed by Otis Bravo MD 07/15/2018 11:30 A
[2018-07-15 12:04] LABS: BASO # 0.1 10^3/uL (0.0-0.2); BASO % 0.3 % (0.0-1.0); HEMATOCRIT 25.2 % (36.0-47.0); HEMOGLOBIN 8.1 g/dl (12.0-15.5); LYMPH # 1.9 10^3/uL (1.5-4.5); LYMPH % 7.9 % (24.0-44.0); MEAN CORPUSCULAR HEMOGLOBIN 30.1 pg (27.0-33.0); MEAN CORPUSCULAR HGB CONC 32.1 g/dl (32.0-36.5); MEAN CORPUSCULAR VOLUME 93.7 fl (80.0-96.0); MONO # 1.1 10^3/uL (0.0-0.8); MONO % 4.5 % (0.0-5.0); NEUTROPHILS # 19.3 10^3/uL (1.8-7.7); RED BLOOD COUNT 2.69 10^6/uL (4.00-5.40); WHITE BLOOD COUNT 23.3 10^3/uL (4.0-10.0)
--- NOTE | 2018-07-15 12:09 | CR ---
DATE OF CONSULTATION: 07/15/2018 HISTORY OF PRESENT ILLNESS: Patient is a 68-year-old female with a past medical history of chronic obstructive pulmonary disease (COPD) with chronic hypoxemic respiratory failure on nasal cannula oxygen supplementation, hypertension, hyperlipidemia, diverticulosis, who initially presented on July 02 with increasing shortness of breath and cough. She was admitted to the hospitalist service and treated for COPD exacerbation and a possible aspiration pneumonia. The patient was then noted to have increasing abdominal distention and abdominal pain as well as some complaint of back pain. She had imaging done of her abdomen which did not show any obstruction of her colon, but did show distention of the colon with possible colonic ileus or Ayo's syndrome. She underwent a flexible sigmoidoscopy which did not identify a complete obstructing lesion in the colon, although there was some narrowing in her sigmoid colon. Her right colon was markedly distended and she has tenderness on exam and worsening mental status and there was concern for some ischemic changes, so she was brought to the operating room for a laparoscopy on 07/13/2018. The patient has an exploratory laparoscopy which showed an extremely distended right colon. She is status post manipulation now and right colostomy. The patient was able to be extubated post procedure, however, the next day she was noted to have increasing oxygen requirements and confusion. The patient was transferred to the intensive care unit (ICU) and placed on BiPAP. The history is obtained from her family who is at bedside. The patient is confused and unable to provide a history. As per the family, she has had altered mental status with hallucinations, which have worsened in the few days prior to her surgery. Post surgery she is still confused and delirious, and she was more lethargic prior to being placed on the BiPAP. Since being placed on the BiPAP, she does appear to be more responsive but she is still confused. They had not noticed any increasing cough. She had not complained of any chest pain or increasing shortness of breath. She has not been complaining of any abdominal pain, although she does note some back pain and some tenderness in her lower extremities to palpation. The family did notice some edema in her lower extremities in the past day or two also. Yesterday, the patient was noted to have minimal urine output so was given a 2 liter bolus with Lactated Ringer's and started on IV fluid hydration. She continues to have some diminished urine output today. She was also broadened on antibiotics from ertapenem to meropenem as she had a fever yesterday evening of 100.4 and increasing leukocytosis. PAST MEDICAL HISTORY: Hypertension. COPD. Hyperlipidemia. Diverticulosis. Osteoporosis. Metabolic syndrome. PAST SURGICAL HISTORY: section. Tonsillectomy. Dilatation and curettage. Ovarian cyst removal. FAMILY HISTORY: Father with a history of COPD, coronary artery disease (CAD), diabetes and hypertension. Mother with a history of carcinoma, hypertension and diabetes. SOCIAL HISTORY: Patient is a former smoker, although as per family they feel she has continued to be sneaking cigarettes and still smoking. She smoked a few packs a day for many years. There is documentation for possible 20 pack year history, although likely more. ALLERGIES: No known drug allergies. HOME MEDICATIONS: - amlodipine - aspirin - atorvastatin - Colace - Advair - trazodone - INCRUSE - alendronate - ProAir as needed PHYSICAL EXAMINATION: T-current was 99.1, T-max in the past 24 hours was 100.4, pulse 92, blood pressure 135/62, oxygen saturation 99% on the BiPAP at 60% FiO2. Ins was 2.7, out 700 mL yesterday. GENERAL: The patient is an obese female, is lying in bed, does not appear to be in acute distress. She is awake and responsive, but confused. HEENT: She is normocephalic, atraumatic. Mucous membranes are dry. NECK: Supple. There is no jugular venous distention (JVD) noted. No palpable adenopathy. CARDIOVASCULAR: Regular rate and rhythm. Normal S1, S2. No murmurs auscultated. LUNGS: There is decreased breath sounds at the bases with a few inspiratory squeaks and possible faint crackles on the left. ABDOMEN: Obese. Mild tenderness. There is a colostomy in place on the right side and a surgical incision in the midline and a laparoscopic incision as well, which appears to be healing. EXTREMITIES: There is no lower extremity edema noted bilaterally, but there is tenderness to palpation in her calf bilaterally. LABS: WBC 26.2, hemoglobin 8.2, platelets 222. Chemistries: Sodium is 139, potassium 4.5, chloride 104, bicarb 34, BUN 46, creatinine 0.76, glucose is 129, AST increased to 108, ALT 167, alkaline phosphatase is 50, total bilirubin is 0.4. ABG on BiPAP pH 7.405, pCO2 of 51.4, pO2 of 63.5. Chest x-ray this morning showed some atelectasis versus infiltrate in the left base with a possible trace effusion on the left side. ASSESSMENT/PLAN: Patient is a 68-year-old female with a past medical history of COPD with chronic hypoxemic respiratory failure on nasal cannula oxygen supplementation, hypertension, hyperlipidemia, osteoporosis who presented initially with an acute COPD exacerbation and possible aspiration pneumonia. 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 She underwent flexible sigmoidoscopy and then a exploratory laparotomy on 07/13/2018 which showed a serosal tear and she is status post right colostomy. Postoperatively, the patient has been noted to have increasing oxygen requirements as well as increasing leukocytosis. She also had a fever of 100.4. Her antibiotics were broadened from ertapenem to meropenem. She was also given vancomycin. Her ABG shows a chronic hypercarbic respiratory failure likely in the setting of her end stage COPD. On BiPAP her oxygenation has improved and as per family she does appear to be more alert, although she has been delirious and confused for the past few days prior to her surgery. 1. Acute on chronic hypoxemic respiratory failure and chronic hypercarbic respiratory failure Her chest x-ray shows likely atelectasis, although there is also a possibility of an infiltrate in her left lower lobe. The acute on chronic hypoxemic respiratory failure is likely multifactorial in the setting of atelectasis post surgery and altered mental status with decreased inspiratory effort. - However given her calf tenderness would also check a lower extremity duplex, although she has been on deep vein thrombosis (DVT) prophylaxis and there is no lower extremity edema noted currently. - Continue with BiPAP for her work of breathing and can give short breaks as tolerated. The patient is DO NOT RESUSCITATE and DO NOT INTUBATE. Therefore if she is failing BiPAP can consider using Vapotherm for her hypoxic respiratory failure. - Continue with broad spectrum antibiotics with vancomycin and meropenem for now for sepsis, possibly 2/2 GI source given history - Would repeat cultures including urinalysis, sputum culture and blood culture given her fever and leukocytosis. - Continue with Solu-Medrol for her history of COPD exacerbation, although she does not have significant coughing or wheezing on exam, would continue with a slow taper with the steroids and continue with DuoNebs for now. - Continue with her Advair as well as other home inhaler medications. 2. Acute transaminitis Patient also with increasing LFTs likely due to some component if hypoperfusion, possibly during surgery with possible shock liver. Her bilirubin is normal and her alkaline phosphatase is normal, which would go against an obstructive etiology for the LFT abnormalities. She does have a gallstone noted on her CT abdomen, but she does not have any significant pain to suggest acute cholecystitis. Will continue to trend LFTs and monitor at this time. 3. Acute Renal failure Patient also with increasing BUN and decreasing urine output. Probably acute kidney injury (MARIANO) secondary to hypovolemia. She is on Lactated Ringer's for IV fluid hydration and she is being started on TPN as well for nutritional support. The patient does only have a midline however, so she cannot get full TPN but she can get PPN. Will continue to follow her renal function and urine output as well as monitor her electrolytes. Discussed with the family at bedside that if she were to have worsening renal dysfunction and if dialysis were to be needed, the family has decided that she would not have wanted dialysis as per her previously stated goals of care. Would discontinue her amlodipine given concern for possible sepsis and continue to monitor her blood pressure. 4. Anemia Patient has had decreasing hemoglobin postoperatively. There is concern for possible GI bleed as well given her increased BUN compared to her creatinine. Would increase her Protonix to twice a day and would make sure she has an active type and screen and continue to monitor her hemoglobin and hematocrit. - transfuse for Hg less than 7 Patient is DO NOT RESUSCITATE, DO NOT INTUBATE. Total critical care time spent, not including procedures, approximately 1 hour and 30 minutes. MTDD
[2018-07-15 12:23] LABS: PLATELET COUNT, AUTOMATED 183 10^3/uL (150-450)
--- NOTE | 2018-07-15 16:22 | PHACANCOPD ---
PHARMACY VANCOMYCIN DOSING Pt Demographics Demographics Patient Age:68 , Weight:79.300 , Gender: female Adjusted Body Weight Date: 07/14/18, Adjusted Body Weight: [59] Kg Vancomycin Vancomycin indication: enterococcus coverage s/p gut surgery Vancomycin Target Ranges: 15-20 mcg/ml Vancomycin Load Y/N: No Load Dose Date Time Vancomycin Load Dose: Date: Time: Vancomycin Dose Date: 07/14/18. Current Vancomycin Dose: [1g IV q12h @16] Intermittent Dosing?: No Labs Micro Microbiology 07/15/18 Blood Culture, Received Pending Creatinine Clearance Date:07/14/18. Creatinine Clearance: [~65 ml/min using adjusted BW]. Assessment and Plan Maintaining Current Dose?: Yes Reason for dose change: No Dose Change Pharmacist Note Pharmacist Note 07/15/18: Day #2 IV vancomycin therapy. Trough level today resulted at 11.2mcg/ml, drawn prior to the 3rd dose (not yet reflective of steady state - BMI=33.0kg/m2). We will continue the patient on her current regimen of 1g IV Q12H and schedule a follow-up trough level for tomorrow, 07/15/18, at 1500 (more reflective of steady state). Date: 07/14/18. Pharmacist note: today pt has been changed from Ertapenem monotherapy to Meropenem and Vancomycin s/p laparoscopy/colostomy (07/13/18). She was last on vancomycin at our facility ~1 year ago. I have started her on Vancomycin 1g IV q12h. We will continue to monitor and order a trough within a few doses. IVÁN HUERTA PHARMACY July 15, 2018 16:22
[2018-07-15 17:32] LABS: BLOOD UREA NITROGEN 31 MG/DL (7-18); CALCIUM LEVEL 7.6 MG/DL (8.8-10.2); CARBON DIOXIDE LEVEL 36 MEQ/L (21-32); CHLORIDE LEVEL 104 MEQ/L (98-107); CREATININE FOR GFR 0.53 MG/DL (0.55-1.30); GLOMERULAR FILTRATION RATE > 60.0 (>39); GLUCOSE, FASTING 179 MG/DL (70-100); POTASSIUM SERUM 4.6 MEQ/L (3.5-5.1); SODIUM LEVEL 142 MEQ/L (136-145)
[2018-07-15] MEDS ORDERED: HumaLOG INSULIN (NovoLOG) PER UNIT SC SCH (18:00)
[2018-07-15] MEDS ORDERED: FAT EMULSION IV 20% 500 ML IV SCH ×2 (18:00)
[2018-07-15] MEDS ORDERED: MULTIVITAMIN -ADULT INJECTION 10 ML, CR/CU/SE/MN/ZN INJ 1 ML in AMINO AC/ELECTROLYTE/DE... IV SCH (18:00)
[2018-07-15] MEDS: AMINO AC/ELECTROLYTE/DEX/CALC 1,000 ML IV SCH (18:22)
[2018-07-15] MEDS: HumaLOG INSULIN (NovoLOG) PER UNIT SC SCH (18:32)
--- NOTE | 2018-07-15 19:31 | IPN ---
DATE: 07/15/2018 The patient is now postoperative day #2 from her laparoscopy, mini laparotomy and decompression of the right colon with creation of a side colostomy. Yesterday she was quite somnolent though her vital signs remained stable. Last evening she was moved to the intensive care unit by the hospitalist. She received some ventilatory support with noninvasive respiratory support. She also received some additional fluid. Today she looks much better mentally. She actually responded to my voice with an appropriate answer. Her vital signs show her to be afebrile, though she had a temperature up to 100.4 yesterday evening. Her pulse is generally in the 90s and her blood pressure is good. She remains on some nasal cannula oxygen. Intake and output shows that yesterday she had 2700 in with 700 out. She has had 1100 of urine output today. PHYSICAL EXAMINATION: Again the patient appears much more alert today. Examination of the abdomen shows that she is not significantly distended. She has some bowel sounds present. Her small ostomy in the right upper quadrant appears viable. LABORATORIES: Labs show white count of 23,000 with the differential showing 83% neutrophils, 8% lymphocytes. Hemoglobin and hematocrit are 8 and 25 which is stable from this morning but down significantly from yesterday and the day before. Chemistry profile shows normal electrolytes with a BUN of 31 and a creatinine of 0.5. Glucose is 179. IMPRESSION: The patient is appearing better today. Certainly her head has cleared quite a bit and she is responsive to conversation. PLAN: Dr. Mcbride has returned and will resume care of the patient. I confirmed this with him directly. I understand he anticipates beginning total parenteral nutrition for support. NGHIA
[2018-07-15] MEDS: NORCO, ANEXSIA 5/325MG TABLET (HYDROcodone/ACETAMINOPHEN) PO PRN (20:22)
[2018-07-16] VITALS (15 sets, daily range): BP systolic 132–171; BP diastolic 62–76
[2018-07-16] MEDS: IPRATROPIUM 0.5MG/ALBUTEROL 2.5MG INH SOL UD 3ML (DUONEB)(J7620) NEB SCH ×7 (00:07→23:58)
[2018-07-16] MEDS: MORPHINE 4 MG/ML 1ML VIAL/SYRINGE (J2270) IV PRN (00:23)
[2018-07-16] MEDS: HumaLOG INSULIN (NovoLOG) PER UNIT SC SCH ×4 (00:31→18:24)
[2018-07-16] MEDS: MEROPENEM INJ 1 GM in APPROPRIATE DILUENT 1 EA IV SCH ×3 (00:32→17:27)
[2018-07-16 03:27] LABS: BASO % 0.2 % (0.0-1.0); HEMATOCRIT 23.5 % (36.0-47.0); HEMOGLOBIN 7.5 g/dl (12.0-15.5); LYMPH # 2.3 10^3/uL (1.5-4.5); LYMPH % 10.2 % (24.0-44.0); MEAN CORPUSCULAR HEMOGLOBIN 29.8 pg (27.0-33.0); MEAN CORPUSCULAR HGB CONC 31.9 g/dl (32.0-36.5); MEAN CORPUSCULAR VOLUME 93.3 fl (80.0-96.0); MONO # 1.5 10^3/uL (0.0-0.8); MONO % 6.6 % (0.0-5.0); NEUTROPHILS # 17.5 10^3/uL (1.8-7.7); NEUTROPHILS % 78.7 % (36.0-66.0); PLATELET COUNT, AUTOMATED 203 10^3/uL (150-450); RED BLOOD COUNT 2.52 10^6/uL (4.00-5.40); WHITE BLOOD COUNT 22.3 10^3/uL (4.0-10.0)
[2018-07-16] MEDS: VANCOMYCIN HCL 1,000 MG, VIAL MATE ADAPTER 1 EACH in D5W 250 ML IV SCH ×2 (03:37→16:19)
[2018-07-16] MEDS: NORCO, ANEXSIA 5/325MG TABLET (HYDROcodone/ACETAMINOPHEN) PO PRN ×2 (03:38→17:27)
[2018-07-16 03:47] LABS: ALBUMIN 2.2 GM/DL (3.2-5.2); ALT/SGPT 144 U/L (12-78); BILIRUBIN,TOTAL 0.2 MG/DL (0.2-1.0); BLOOD UREA NITROGEN 27 MG/DL (7-18); CALCIUM LEVEL 7.7 MG/DL (8.8-10.2); CARBON DIOXIDE LEVEL 35 MEQ/L (21-32); CHLORIDE LEVEL 104 MEQ/L (98-107); CREATININE FOR GFR 0.43 MG/DL (0.55-1.30); GLOMERULAR FILTRATION RATE > 60.0 (>39); GLUCOSE, FASTING 103 MG/DL (70-100); MAGNESIUM LEVEL 2.4 MG/DL (1.8-2.4); POTASSIUM SERUM 4.7 MEQ/L (3.5-5.1); SODIUM LEVEL 142 MEQ/L (136-145); TOTAL PROTEIN 5.2 GM/DL (6.4-8.2)
[2018-07-16] MEDS: SODIUM CHLORIDE 0.9% INJ 10 ML SYR IV SCH ×2 (06:00→18:25)
[2018-07-16] MEDS: AMINO AC/ELECTROLYTE/DEX/CALC 1,000 ML IV SCH ×2 (07:54→21:50)
[2018-07-16] MEDS: PANTOPRAZOLE 40MG INJ (PROTONIX) (C9113) IV SCH ×2 (08:09→21:50)
[2018-07-16] MEDS: HEPARIN SOD (PORCINE) 5000 UNITS/ML VIAL SQ SCH ×2 (08:09→21:50)
[2018-07-16] MEDS: methylPREDNISolone INJ 40 MG/1 ML VIAL (J2920) IV SCH (08:09)
[2018-07-16] MEDS: amLODIPine 5 MG TAB PO SCH (09:00)
[2018-07-16] MEDS: ADVAIR HFA 230/21MCG INHALER INH SCH ×2 (09:00→20:02)
--- NOTE | 2018-07-16 09:21 | IPNPDOC ---
Text Note Date of Service The patient was seen on 07/16/18. NOTE No acute events overnight. She is off Bipap and is less confused. Denies nausea, emesis, or pain. Minimal output from the colostomy. 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 POD#3 s/p dx lap with right colostomy P) flq diet advance to regular when ostomy has some output monitor ostomy output OOB to chair PT ambulate abx will follow Lamin Mcbride DO A-FIB/CHADSVASC A-FIB History Current/History of A-Fib/PAF?: No VS,Fishbone, I+O VS, Fishbone, I+O Laboratory Tests 07/15/18 11:50 Red Blood Count 2.69 L, Mean Corpuscular Volume 93.7, Mean Corpuscular Hemoglobin 30.1, Mean Corpuscular Hemoglobin Concent 32.1, Red Cell Distribution Width 14.5, Neutrophils (%) (Auto) 83.0 H, Lymphocytes (%) (Auto) 7.9 L, Monocytes (%) (Auto) 4.5, Eosinophils (%) (Auto) 0.0, Basophils (%) (Auto) 0.3, Neutrophils # (Auto) 19.3 H, Lymphocytes # (Auto) 1.9, Monocytes # (Auto) 1.1 H, Eosinophils # (Auto) 0.0, Basophils # (Auto) 0.1 07/15/18 17:08 Calcium Level 7.6 L 07/16/18 03:15 Red Blood Count 2.52 L, Mean Corpuscular Volume 93.3, Mean Corpuscular Hemoglobin 29.8, Mean Corpuscular Hemoglobin Concent 31.9 L, Red Cell Distribution Width 14.5, Neutrophils (%) (Auto) 78.7 H, Lymphocytes (%) (Auto) 10.2 L, Monocytes (%) (Auto) 6.6 H, Eosinophils (%) (Auto) 0.0, Basophils (%) (Auto) 0.2, Neutrophils # (Auto) 17.5 H, Lymphocytes # (Auto) 2.3, Monocytes # (Auto) 1.5 H, Eosinophils # (Auto) 0.0, Basophils # (Auto) 0.0, Calcium Level 7.7 L, Aspartate Amino Transf (AST/SGOT) 64 H, Alanine Aminotransferase (ALT/SGPT) 144 H, Alkaline Phosphatase 48, Total Bilirubin 0.2, Total Protein 5.2 L, Albumin 2.2 L Vital Signs Date Time Temp Pulse Resp B/P (MAP) Pulse Ox O2 Delivery O2 Flow Rate FiO2 07/16/18 08:33 45 07/16/18 04:08 95 17 07/16/18 04:00 100.1 171/70 (103) 99 07/15/18 20:22 4.0 I&O- Last 24 Hours up to 6 AM 07/16/18 06:00 Intake Total 2740 ml Output Total 2550 ml Balance 190 ml KARTIK MCBRIDE DO July 16, 2018 09:21
--- NOTE | 2018-07-16 10:53 | IPNPDOC ---
Text Note Date of Service The patient was seen on 07/16/18. NOTE Subjective: Patient looks better this morning. She is more awake, following co mmands. Answering few questions appropriately. Says it hurts in her belly to cough. Complains of some SOB. Low grade fever, good urine output. Not much output in the colostomy yet. Objective: Vitals (See below) General: lying in bed, confused. Noted to have labored breathing. HEENT: NC, AT, dry mucous membranes. anicteric eyes. CVS: +S1S2, no rub murmur or gallop Lungs: There appears to be air entry bilaterally that is fair there is bilateral ronchi , wheezing , and coarse breath sounds. Some bibasal crackles. Abdomen: Abdomen again is noted to be soft, diffuse tenderness. Has colostomy in place. Hypoactive bowel sounds. Extremities: Lower extremities are without edema Labs and Radiology: reviewed. Assessment and plan: Patient is a 68-year-old female with a PMHx of Metabolic syndrome, HTN, DLP, End stage COPD with O2 dependence (3-5 L), Diverticulosis, Tobacco abuse, Osteoporosis who presented to the ER with complaints of shortness of breath, associated with wheezing and cough. Patient was admitted to the hospital service for COPD exacerbation and possibly aspira tion pneumonia. The hospital course has been complicated by abdominal pain and distension and found to have large bowel obstruction with midsigmoid colon stricture and possibly ileus. She also had severe back pain with muscle spasms. Metabolic encephalopathy improving due to hypoxia and general sickness. Acute hypoxic respiratory failure due to inadequate effort of breathing after abdominal surgery. on BIPAP appreciate pulmonary recommendations. 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 Underwent colonic decompression and colostomy creation on 07/13/[address] White. s/p flexible sigmoidoscopy on 07/11/18 showed twisting vs stricture in mid sigmoid colon. Barium enema did not show any stricture. On Meropenem and vancomycin.ips Diet as per surgery. Diverticulosis with possible chronic diverticulitis on meropenem and vancomycin Acute COPD exacerbation; possibly 2/2 aspiration pneumonia resolved. c/w methyl pred till patient eating will continue to taper, advair, nebs, spiriva c/w incentive spirometry Chronic respiratory failure with hypoxia currently patient is on her usual dosage of oxygen s/p Intractable back pain - likely 2/2 musculoskeletal etiology - likely with muscle spasms Patient currently does not experience any focal neurologic deficits; has full strength of her lower extremities Patient did not want to pursue an MRI; risks and benefits have been discussed Urinary retention - possibly 2/2 constipation s/p Esquivel catheter insertion; will remove once regular BMs re-start Metabolic syndrome HTN BP well controlled c/w Amlodipine with hold parameters. DLP c/w Atorvastatin and ASA when eating orally Tobacco abuse Quit smoking 20 years ago Osteoporosis Patient has been on Alendronate since 2012 DEXA 08/2015 Mood disorder / Anxiety / Insomnia c/w Trazodone when eating orally GI prophylaxis c/w Protonix DVT prophylaxis c/w heparin A-FIB/CHADSVASC A-FIB History Current/History of A-Fib/PAF?: No VS,Fishbone, I+O VS, Fishbone, I+O Laboratory Tests 07/15/18 11:50 Red Blood Count 2.69 L, Mean Corpuscular Volume 93.7, Mean Corpuscular Hemoglobin 30.1, Mean Corpuscular Hemoglobin Concent 32.1, Red Cell Distribution Width 14.5, Neutrophils (%) (Auto) 83.0 H, Lymphocytes (%) (Auto) 7.9 L, Monocytes (%) (Auto) 4.5, Eosinophils (%) (Auto) 0.0, Basophils (%) (Auto) 0.3, Neutrophils # (Auto) 19.3 H, Lymphocytes # (Auto) 1.9, Monocytes # (Auto) 1.1 H, Eosinophils # (Auto) 0.0, Basophils # (Auto) 0.1 07/15/18 17:08 Calcium Level 7.6 L 07/16/18 03:15 Red Blood Count 2.52 L, Mean Corpuscular Volume 93.3, Mean Corpuscular Hemog lobin 29.8, Mean Corpuscular Hemoglobin Concent 31.9 L, Red Cell Distribution Width 14.5, Neutrophils (%) (Auto) 78.7 H, Lymphocytes (%) (Auto) 10.2 L, Monocytes (%) (Auto) 6.6 H, Eosinophils (%) (Auto) 0.0, Basophils (%) (Auto) 0.2, Neutrophils # (Auto) 17.5 H, Lymphocytes # (Auto) 2.3, Monocytes # (Auto) 1.5 H, Eosinophils # (Auto) 0.0, Basophils # (Auto) 0.0, Calcium Level 7.7 L, Aspartate Amino Transf (AST/SGOT) 64 H, Alanine Aminotransferase (ALT/SGPT) 144 H, Alkaline Phosphatase 48, Total Bilirubin 0.2, Total Protein 5.2 L, Albumin 2.2 L Vital Signs Date Time Temp Pulse Resp B/P (MAP) Pulse Ox O2 Delivery O2 Flow Rate FiO2 07/16/18 09:00 97 132/62 07/16/18 08:33 45 07/16/18 08:00 5.0 07/16/18 04:08 17 07/16/18 04:00 100.1 99 I&O- Last 24 Hours up to 6 AM 07/16/18 06:00 Intake Total 2740 ml Output Total 2550 ml Balance 190 ml THOMAS SOLOMON MD July 16, 2018 10:53
--- NOTE | 2018-07-16 14:25 | CCN ---
DATE: 07/16/2018 The patient was seen and examined this morning during bedside rounds. She was on nasal cannula oxygen overnight as she had refused the BiPap overnight. This morning, she was noted to be more lethargic and appeared to have some more respiratory distress and she was placed back on BiPap briefly. With the BiPap, the patient's mental status improved and she was taken off later in the morning. She does appear to be more awake and alert today, is denying any chest pain or increased shortness of breath. She does have a cough and she does feel that she has mucus in her chest that she is unable to expectorate easily. She denies any significant abdominal pain currently. She has been tolerating liquids and pudding this morning. Overnight, she did have a low grade temperature of 100.1. Her urine output overnight has improved. PHYSICAL EXAMINATION: T-max 100.1 in the past 24 hours. Pulse 95. Respiration 17. Blood pressure 171/70. O2 sat 99% on BiPap. Ins 2.1 liters and out 2.1 liters. General: The patient is an obese female who is sitting in bed, does not appear to be any acute distress. She is awake and alert and answering questions. At times is confused. HEENT: Normocephalic, atraumatic. Mucous membranes are moist. Neck is supple. There is no jugular venous distention (JVD). There is no palpable cervical adenopathy. Cardiovascular is regular rate and rhythm. Normal S1 and S2. No murmurs auscultated. Lungs: There are some rhonchi and crackles noted bilaterally with a few inspiratory squeaks. Abdomen is obese. There is mild tenderness and there is a colostomy in place on the right side and a surgical incision in the midline as well as a laparoscopic incision which appears to be healing. Extremities: There is no significant lower extremity edema noted bilaterally, but the patient has significant tenderness to palpation in her lower extremities. LABORATORY DATA: WBC 22.3, hemoglobin 7.5, platelets 203. Chemistries: Sodium 142, potassium 4.7, chloride 104, bicarb 35, BUN 27, creatinine 0.43, glucose is 103, AST 64, and ALT 144. IMAGING STUDIES: Lower extremity duplex was negative bilaterally for deep vein thrombosis (DVT). ASSESSMENT/PLAN: The patient is a 68-year-old female with a past medical history of COPD with chronic hypoxemic respiratory failure on nasal cannula oxygen supplementation, hypertension, hyperlipidemia, and osteoporosis who presented initially with an acute COPD exacerbation and possible aspiration pneumonia. 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 She underwent flexible sigmoidoscopy and then an exploratory laparotomy on 07/13/2018 which showed a serosal tear and she is now status post right colostomy. Postoperatively, the patient had required increasing oxygen supplementation and had been placed on a BiPap with improvement in her oxygenation. Her ABG has showed chronic hypercarbic respiratory failure which is currently compensated. 1. Acute on chronic hypoxemic respiratory failure and chronic hypercarbic respiratory failure. The patient's acute on chronic hypoxemic respiratory failure is likely multifactorial in the setting of atelectasis postsurgery as well as with some aspiration given her history of altered mental status and difficulty clearing secretions. She does appear to have significant rhonchi and some inspiratory squeaks and crackles on exam. - Would start chest physical therapy (PT) with her nebulizers as well as PEP to help with pulmonary toilet and clearance of her secretions. Would also get the patient out of bed and to stretcher as tolerated. - Continue with BiPap for her chronic hypercarbic respiratory failure at night and will have her off during the day as tolerated. - The patient had a lower extremity duplex which was negative for any DVT. - Continue with broad-spectrum antibiotics with vancomycin and meropenem for sepsis, likely secondary to a GI source at this time. Her chest x-ray showed atelectasis likely in her left lower lobe, although infiltrate was possible as well. - Will followup her repeat cultures. - Continue with Solu-Medrol at 20 mg IV for history of COPD exacerbation, although she does not have significant wheezing currently. Will continue with a slow taper of her steroids. - Continue with Advair and her DuoNebs. 2. Colonic ileus s/p ex-lap and right colostomy. Acute transaminitis post operatively. The patient's liver function tests (LFTs) had increased likely in the setting of some hypoperfusion possibly during surgery. Her bilirubin was normal and her alkaline phosphatase was normal which goes against obstructive etiology for the transaminitis. Her LFTs today are trending down. Will continue to monitor. - The patient is on PPN for nutritional support and diet is being advanced as tolerated 3. Acute renal failure. The patient had acute kidney injury (MARIANO) likely secondary to hypovolemia and some hypoperfusion. Her renal function is improving today and her urine output has improved. - Will continue to monitor her urine output and renal function and replete electrolytes as needed. 4. Anemia. The patient has decreasing hemoglobin postoperatively and today it has continued to trend down. Would transfuse her a 1 unit of PRBCs and would check her coags today. - Continue with Protonix b.i.d. for another 24 hrs and then change to IV daily. - patient may require IV lasix with her transfusion if evidence of pulmonary edema or fluid overload Code status: DO NOT RESUSCITATE/DO NOT INTUBATE (DNR/DNI). Total critical care time spent, not including any procedures was approximately [address] [facility]
[2018-07-16] MEDS ORDERED: FUROSEMIDE 40 MG/4 ML VIAL (J1940) IV ONE (16:30)
[2018-07-16] MEDS ORDERED: FAT EMULSION IV 20% 500 ML IV SCH (18:00)
[2018-07-16 19:50] LABS: HEMATOCRIT 30.7 % (36.0-47.0); MEAN CORPUSCULAR HEMOGLOBIN 29.7 pg (27.0-33.0); MEAN CORPUSCULAR HGB CONC 32.9 g/dl (32.0-36.5); MEAN CORPUSCULAR VOLUME 90.3 fl (80.0-96.0); PLATELET COUNT, AUTOMATED 231 10^3/uL (150-450); WHITE BLOOD COUNT 25.4 10^3/uL (4.0-10.0)
[2018-07-16 19:55] LABS: HEMOGLOBIN 10.1 g/dl (12.0-15.5)
[2018-07-17] VITALS (8 sets, daily range): BP systolic 139–183; BP diastolic 71–106; O2SAT 89
[2018-07-17] MEDS: VANCOMYCIN HCL 1,000 MG, VIAL MATE ADAPTER 1 EACH in D5W 250 ML IV SCH ×2 (00:30→12:34)
[2018-07-17] MEDS: HumaLOG INSULIN (NovoLOG) PER UNIT SC SCH ×5 (00:43→23:56)
[2018-07-17] MEDS: MEROPENEM INJ 1 GM in APPROPRIATE DILUENT 1 EA IV SCH ×3 (01:50→16:37)
[2018-07-17] MEDS: IPRATROPIUM 0.5MG/ALBUTEROL 2.5MG INH SOL UD 3ML (DUONEB)(J7620) NEB SCH ×7 (04:29→23:00)
[2018-07-17 05:28] LABS: BASO # 0.1 10^3/uL (0.0-0.2); BASO % 0.5 % (0.0-1.0); EOS # 0.1 10^3/uL (0.0-0.50); EOS % 0.2 % (0.0-3.0); HEMATOCRIT 29.7 % (36.0-47.0); HEMOGLOBIN 9.6 g/dl (12.0-15.5); LYMPH # 3.1 10^3/uL (1.5-4.5); LYMPH % 12.3 % (24.0-44.0); MEAN CORPUSCULAR HEMOGLOBIN 30.1 pg (27.0-33.0); MEAN CORPUSCULAR HGB CONC 32.3 g/dl (32.0-36.5); MEAN CORPUSCULAR VOLUME 93.1 fl (80.0-96.0); MONO # 1.8 10^3/uL (0.0-0.8); MONO % 6.9 % (0.0-5.0); NEUTROPHILS # 19.4 10^3/uL (1.8-7.7); NEUTROPHILS % 75.5 % (36.0-66.0); PLATELET COUNT, AUTOMATED 238 10^3/uL (150-450); RED BLOOD COUNT 3.19 10^6/uL (4.00-5.40); WHITE BLOOD COUNT 25.6 10^3/uL (4.0-10.0)
[2018-07-17] MEDS: SODIUM CHLORIDE 0.9% INJ 10 ML SYR IV SCH ×2 (05:48→18:29)
[2018-07-17 05:54] LABS: ALBUMIN 2.7 GM/DL (3.2-5.2); ALT/SGPT 186 U/L (12-78); BILIRUBIN,TOTAL 0.6 MG/DL (0.2-1.0); BLOOD UREA NITROGEN 19 MG/DL (7-18); CALCIUM LEVEL 8.5 MG/DL (8.8-10.2); CARBON DIOXIDE LEVEL 40 MEQ/L (21-32); CHLORIDE LEVEL 94 MEQ/L (98-107); CREATININE FOR GFR 0.38 MG/DL (0.55-1.30); GLOMERULAR FILTRATION RATE > 60.0 (>39); GLUCOSE, FASTING 115 MG/DL (70-100); MAGNESIUM LEVEL 2.1 MG/DL (1.8-2.4); POTASSIUM SERUM 4.5 MEQ/L (3.5-5.1); SODIUM LEVEL 136 MEQ/L (136-145); TOTAL PROTEIN 5.9 GM/DL (6.4-8.2)
[2018-07-17] MEDS: PANTOPRAZOLE 40MG INJ (PROTONIX) (C9113) IV SCH (08:33)
[2018-07-17] MEDS: methylPREDNISolone INJ 40 MG/1 ML VIAL (J2920) IV SCH (08:33)
[2018-07-17] MEDS: HEPARIN SOD (PORCINE) 5000 UNITS/ML VIAL SQ SCH ×2 (08:33→21:34)
[2018-07-17] MEDS: amLODIPine 5 MG TAB PO SCH (08:34)
[2018-07-17] MEDS: ADVAIR HFA 230/21MCG INHALER INH SCH ×2 (09:00→21:00)
--- NOTE | 2018-07-17 11:06 | IPNPDOC ---
Text Note Date of Service The patient was seen on 07/17/18. NOTE No acute events overnight. She is back on the Bipap and is less confused this am. She has been refusing it at night, and having a hard time tolerating being off of the BIPAP for more than a couple hours. The family has requested Hospice consult since she is not happy staying on the BIPAP. Denies nausea, emesis, or pain. Minimal output from the colostomy, and it is maroon this am. She has been tolerating diet, but has only had minimal intake since she can't be off of the oxygen for long. 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 POD#4 s/p dx lap with right colostomy P) flq diet advance to regular when ostomy has some output monitor ostomy output OOB to chair PT ambulate abx will follow prognosis poor Lamin Mcbride DO A-FIB/CHADSVASC A-FIB History Current/History of A-Fib/PAF?: No VS,Fishbone, I+O VS, Fishbone, I+O Laboratory Tests 07/16/18 19:32 Red Blood Count 3.40 L, Mean Corpuscular Volume 90.3, Mean Corpuscular Hemoglobin 29.7, Mean Corpuscular Hemoglobin Concent 32.9, Red Cell Distribution Width 14.5 07/17/18 04:54 Red Blood Count 3.19 L, Mean Corpuscular Volume 93.1, Mean Corpuscular Hemoglobin 30.1, Mean Corpuscular Hemoglobin Concent 32.3, Red Cell Distribution Width 14.5, Neutrophils (%) (Auto) 75.5 H, Lymphocytes (%) (Auto) 12.3 L, Monocytes (%) (Auto) 6.9 H, Eosinophils (%) (Auto) 0.2, Basophils (%) (Auto) 0.5, Neutrophils # (Auto) 19.4 H, Lymphocytes # (Auto) 3.1, Monocytes # (Auto) 1.8 H, Eosinophils # (Auto) 0.1, Basophils # (Auto) 0.1, Calcium Level 8.5 L, Aspartate Amino Transf (AST/SGOT) 74 H, Alanine Aminotransferase (ALT/SGPT) 186 H, Alkaline Phosphatase 65, Total Bilirubin 0.6 #, Total Protein 5.9 L, Albumin 2.7 #L Vital Signs Date Time Temp Pulse Resp B/P (MAP) Pulse Ox O2 Delivery O2 Flow Rate FiO2 07/17/18 08:34 97 146/71 07/17/18 08:00 6.0 07/17/18 08:00 99.8 20 94 07/17/18 04:00 50 I&O- Last 24 Hours up to 6 AM 07/17/18 06:00 Intake Total 3840 ml Output Total 6400 ml Balance -2560 ml KARTIK MCBRIDE DO July 17, 2018 11:06
--- NOTE | 2018-07-17 11:18 | IPNPDOC ---
Text Note Date of Service The patient was seen on 07/17/18. NOTE Subjective: Patient not doing well this am . She is not able to be weaned off BIPAP. She cannot tolerate being off BIPAP for more than 2 hours then she becomes tired, drowsy and hypoxic. She is on BIPAP almost 24 hourrs. Minimal output in the colostomy bag, abdomen still distended and tender. Her prognosis is poor. Family says she does not want to be on BIPAP 24 hours a day and have expressed wish to speak with Hospice. Family says that if she does not improve she has expressed that she wants to at home. Objective: Vitals (See below) General: lying in bed, confused. Noted to have labored breathing. HEENT: NC, AT, dry mucous membranes. anicteric eyes. CVS: +S1S2, no rub murmur or gallop Lungs: There appears to be air entry bilaterally that is fair there is bilateral ronchi , wheezing , and coarse breath sounds. Some bibasal crackles. Abdomen: Abdomen again is noted to be soft, diffuse tenderness. Has colostomy in place. Hypoactive bowel sounds. Extremities: Lower extremities are without edema Labs and Radiology: reviewed. Assessment and plan: Patient is a 68-year-old female with a PMHx of Metabolic syndrome, HTN, DLP, End stage COPD with O2 dependence (3-5 L), Diverticulosis, Tobacco abuse, Osteoporosis who presented to the ER with c omplaints of shortness of breath, associated with wheezing and cough. Patient was admitted to the hospital service for COPD exacerbation and possibly aspiration pneumonia. The hospital course has been complicated by abdominal pain and distension and found to have large bowel obstruction with midsigmoid colon stricture and possibly ileus. She also had severe back pain with muscle spasms. Metabolic encephalopathy due to hypoxia and general sickness. Acute on chronic hypoxic respiratory failure due to inadequate effort of breathing after abdominal surgery. on BIPAP, have not been able to be weaned. appreciate pulmonary recommendations. 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 Underwent colonic decompression and colostomy creation on 07/13/[address] White. s/p flexible sigmoidoscopy on 07/11/18 showed twisting vs stricture in mid sigmoid colon. Barium enema did not show any stricture. On Meropenem and vancomycin.ips Diet as per surgery. Diverticulosis with possible chronic diverticulitis on meropenem and vancomycin Acute COPD exacerbation; possibly 2/2 aspiration pneumonia resolved. c/w methyl pred till patient eating will continue to taper, advair, nebs, spiriva c/w incentive spirometry s/p Intractable back pain - likely 2/2 musculoskeletal etiology - likely with muscle spasms Patient currently does not experience any focal neurologic deficits; has full strength of her lower extremities Patient did not want to pursue an MRI; risks and benefits have been discussed Urinary retention - possibly 2/2 constipation s/p Esquivel catheter insertion; will remove once regular BMs re-start Metabolic syndrome HTN BP well controlled c/w Amlodipine with hold parameters. DLP c/w Atorvastatin and ASA when eating orally Tobacco abuse Quit smoking 20 years ago Osteoporosis Patient has been on Alendronate since 2012 DEXA 08/2015 Mood disorder / Anxiety / Insomnia c/w Trazodone when eating orally GI prophylaxis c/w Protonix DVT prophylaxis c/w heparin A-FIB/CHADSVASC A-FIB History Current/History of A-Fib/PAF?: No VS,Fishbone, I+O VS, Fishbone, I+O Laboratory Tests 07/16/18 19:32 Red Blood Count 3.40 L, Mean Corpuscular Volume 90.3, Mean Corpuscular Hemoglobin 29.7, Mean Corpuscular Hemoglobin Concent 32.9, Red Cell Distribution Width 14.5 07/17/18 04:54 Red Blood Count 3.19 L, Mean Corpuscular Volume 93.1, Mean Corpuscular Hemoglobin 30.1, Mean Corpuscular Hemoglobin Concent 32.3, Red Cell Distribution Width 14.5, Neutrophils (%) (Auto) 75.5 H, Lymphocytes (%) (Auto) 12.3 L, Monocytes (%) (Auto) 6.9 H, Eosinophils (%) (Auto) 0.2, Basophils (%) (Auto) 0.5 , Neutrophils # (Auto) 19.4 H, Lymphocytes # (Auto) 3.1, Monocytes # (Auto) 1.8 H, Eosinophils # (Auto) 0.1, Basophils # (Auto) 0.1, Calcium Level 8.5 L, Aspartate Amino Transf (AST/SGOT) 74 H, Alanine Aminotransferase (ALT/SGPT) 186 H, Alkaline Phosphatase 65, Total Bilirubin 0.6 #, Total Protein 5.9 L, Albumin 2.7 #L Vital Signs Date Time Temp Pulse Resp B/P (MAP) Pulse Ox O2 Delivery O2 Flow Rate FiO2 07/17/18 08:34 97 146/71 07/17/18 08:00 6.0 07/17/18 08:00 99.8 20 94 07/17/18 04:00 50 I&O- Last 24 Hours up to 6 AM 07/17/18 06:00 Intake Total 3840 ml Output Total 6400 ml Balance -2560 ml THOMAS SOLOMON MD July 17, 2018 11:18
[2018-07-17] MEDS: AMINO AC/ELECTROLYTE/DEX/CALC 1,000 ML IV SCH (12:34)
[2018-07-17] MEDS ORDERED: LIDOCAINE 1% MDV 20ML VIAL As Ordered ONE (13:55)
[2018-07-17] MEDS ORDERED: AMINO AC/ELECTROLYTE/DEX/CALC 2,000 ML IV SCH (18:00)
[2018-07-17] MEDS ORDERED: FAT EMULSION IV 20% 500 ML IV SCH (18:00)
--- NOTE | 2018-07-17 19:52 | CCN ---
DATE: 07/17/2018 The patient was seen and examined this morning during bedside rounds. The patient was on BiPap overnight and was taken off early this morning, however after about an hour or two off of BiPap. The patient was noted to be de-satting and in more respiratory distress and more lethargic and was placed back on BiPap. On the BiPap she is more awake and alert. She denies any chest pain currently or increased shortness of breath. She does continue to have a cough but is not been expectorating much mucus. She did get a chest PT with the vest yesterday but she did not tolerate it for a prolonged period of time. She has not been compliant with using her incentive spirometer or with PEP. Patient was given 1 unit of packed red blood cells slowly yesterday. She was also given a dose of IV Lasix for possible fluid overload with the blood transfusion. PHYSICAL EXAMINATION: Temperature 99.8, pulse 97, respirations 20, blood pressure 146/71, O2 sat 95% on the BiPap at the at 50% FIO2. In 4.1 liters out 6.2 liters net negative 2 liters. General: The patient is an obese female sitting in bed. He is not in any acute distress. Is wearing BiPap currently, is awake and alert and answering some questions but appears confused at times. HEENT is normocephalic, atraumatic. Mucous membranes are moist. Neck is supple. There is no JVD appreciated and no palpable cervical adenopathy. Cardiovascular: Regular rate and rhythm. Normal S1-S2. No murmurs appreciated. Lungs: There are diminished breath sounds bilaterally with some crackles at the bases and a few inspiratory squeaks and rhonchi. Abdomen is obese. The patient has a right colostomy in place and surgical incision is midline as well as laparoscopic incision which appears to be healing. Extremities: There is no significant lower extremity edema noted bilaterally. LABORATORY DATA: WBC 25.6, hemoglobin 9.6, platelets 238. Chemistry sodium 136, potassium 4.5, chloride 94, bicarb 40, BUN 19, creatinine 0.38, glucose 115, blood cultures were no growth to date. ASSESSMENT/PLAN: The patient is a 68-year-old female with past medical history of COPD with chronic hypoxemic respiratory failure on nasal cannula oxygen supplementation, hypertension, hyperlipidemia, and osteoporosis who presented initially with an acute COPD exacerbation and possible aspiration pneumonia. 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 She initially underwent flexible sigmoidoscopy and then an exploratory laparotomy on 07/13/2018. She is now status post right colostomy. Postoperatively the patient had acute on chronic hypoxemic respiratory failure requiring BiPap support. She is able to periodically be weaned to nasal cannula but she will continue to have episodes of desaturations that will require being back on BiPap for long periods during the day. 1. Acute on chronic hypoxemic respiratory failure and chronic hypercarbic respiratory failure. Her acute chronic hypoxemic respiratory failure is likely multifactorial in setting of atelectasis postsurgery as well as with some aspiration given her history of altered mental status and difficulty clearing secretions. The patient may also have a component of some mild pulmonary vascular congestion as well contributing to the hypoxemia. - Continue with chest PT with her nebulizers as well as incentive spirometer and PEP to help with pulmonary toilet and clearance of her secretions. Continue with BiPap for her chronic hypercarbic respiratory failure at night and will continue to attempt to wean her off during the day as tolerated. - Discussed with the patient's family about her goals of care and the patient had previously described her wishes to be DO NOT RESUSCITATE DO NOT INTUBATE but she had also mentioned that she would not have wanted to be kept on BiPap for a prolonged periods of time. Therefore, if she is unable to be weaned off of the BiPap and she becomes more dependent on it, the family feel that the patient would have wanted to go home with hospice. She had previously expressed to them that her wishes were to pass away at home as her parents had done. - Will place a hospice consult therefore, as they are interested in possible hospice evaluation. -Continue broad-spectrum antibiotics, vancomycin, meropenem for sepsis likely secondary to GI source. Would check a procalcitonin to determine de-escalation or discontinuation of antibiotics. Her WBC continues to increase however, she has not been febrile. - Continue with Solu-Medrol would taper down from 20 mg to 15 mg IV for her history of COPD exacerbation. - Continue with Advair and DuoNeb. 2. Colonic ileus status post ex-lap and right colostomy. Her LFTs were elevated postoperatively likely in the setting of some hypoperfusion during surgery. They are trending down. -Will continue to monitor. -The patient is TPN for nutritional support and diet is being advanced as tolerated. 3. Acute renal failure. The patient had acute kidney injury (MARIANO) likely secondary to hypovolemia and hypoperfusion. Her renal function is continuing to improve. She was given Lasix yesterday for diuresis with good output. - Will continue to monitor her ins and outs and her renal function and replete electrolytes as needed. 4. Anemia. The patient's hemoglobin had trended down postoperatively. Was given 1 unit PRBC yesterday with appropriate response in her hemoglobin. Will continue with Protonix, will change it to IV daily and continue to monitor her hemoglobin and hematocrit. CODE STATUS: DO NOT RESUSCITATE DO NOT INTUBATE Total critical care time spent not including procedures approximately 40 minutes. MTDD
[2018-07-18] VITALS: BP 146/74
[2018-07-18] MEDS: MEROPENEM INJ 1 GM in APPROPRIATE DILUENT 1 EA IV SCH ×2 (01:00→09:41)
[2018-07-18 04:00] VITALS: BP 162/80
[2018-07-18] MEDS: IPRATROPIUM 0.5MG/ALBUTEROL 2.5MG INH SOL UD 3ML (DUONEB)(J7620) NEB SCH ×3 (04:11→11:13)
[2018-07-18] MEDS: HumaLOG INSULIN (NovoLOG) PER UNIT SC SCH ×2 (05:35→12:16)
[2018-07-18] MEDS: SODIUM CHLORIDE 0.9% INJ 10 ML SYR IV SCH ×2 (05:35→17:42)
[2018-07-18 05:58] LABS: HEMATOCRIT 27.1 % (36.0-47.0); HEMOGLOBIN 8.8 g/dl (12.0-15.5); MEAN CORPUSCULAR HEMOGLOBIN 30.9 pg (27.0-33.0); MEAN CORPUSCULAR HGB CONC 32.5 g/dl (32.0-36.5); MEAN CORPUSCULAR VOLUME 95.1 fl (80.0-96.0); PLATELET COUNT, AUTOMATED 246 10^3/uL (150-450); RED BLOOD COUNT 2.85 10^6/uL (4.00-5.40); WHITE BLOOD COUNT 25.3 10^3/uL (4.0-10.0)
[2018-07-18 06:23] LABS: ALBUMIN 2.3 GM/DL (3.2-5.2); ALT/SGPT 171 U/L (12-78); BILIRUBIN,TOTAL 0.7 MG/DL (0.2-1.0); BLOOD UREA NITROGEN 23 MG/DL (7-18); CALCIUM LEVEL 8.6 MG/DL (8.8-10.2); CARBON DIOXIDE LEVEL 40 MEQ/L (21-32); CHLORIDE LEVEL 95 MEQ/L (98-107); CREATININE FOR GFR 0.41 MG/DL (0.55-1.30); GLOMERULAR FILTRATION RATE > 60.0 (>39); GLUCOSE, FASTING 165 MG/DL (70-100); MAGNESIUM LEVEL 2.1 MG/DL (1.8-2.4); POTASSIUM SERUM 4.3 MEQ/L (3.5-5.1); SODIUM LEVEL 137 MEQ/L (136-145); TOTAL PROTEIN 5.8 GM/DL (6.4-8.2)
[2018-07-18 06:35] LABS: EOSINOPHILS 2 % (0-5); LYMPHOCYTES 12 % (16-52); MONOCYTES 8 % (0-8); NEUTROPHILS 78 % (35-75)
[2018-07-18 06:36] LABS: PLATELET ESTIMATE NORMAL (NORMAL); POLYCHROMASIA 1+
[2018-07-18 07:58] VITALS: BP 131/81
[2018-07-18] MEDS: ADVAIR HFA 230/21MCG INHALER INH SCH (08:46)
[2018-07-18] MEDS ORDERED: methylPREDNISolone INJ 40 MG/1 ML VIAL (J2920) IV SCH (09:00)
[2018-07-18] MEDS ORDERED: PANTOPRAZOLE 40MG INJ (PROTONIX) (C9113) IV SCH (09:00)
[2018-07-18] MEDS: HEPARIN SOD (PORCINE) 5000 UNITS/ML VIAL SQ SCH (09:41)
[2018-07-18 09:42] VITALS: BP 131/81
[2018-07-18] MEDS: amLODIPine 5 MG TAB PO SCH (09:42)
--- NOTE | 2018-07-18 10:39 | IPNPDOC ---
Text Note Date of Service The patient was seen on 07/18/18. NOTE Subjective: Continues to be in hypoxic respiratory failure requiring continuous BIPAP support. She is unable to cough or take deep breaths. She is unable to tolerate Chest PT and respiratory toileting. Minimal output in the colostomy bag, abdomen still distended and tender. Her prognosis is very poor. Family has spoken with hospice and paln is to go home with home hospice in place as soon as that can be set up. . Objective: Vitals (See below) General: lying in bed, awake in mild distress HEENT: NC, AT, anicteric eyes. CVS: +S1S2, no rub murmur or gallop Lungs: bilateral vesicular breath sounds , bibasilar coarse breath sounds with crackles, No ronchi heard. Abdomen: Abdomen again is noted to be soft, diffuse tenderness. Has colostomy in place. Hypoactive bowel sounds. Extremities: Lower extremities have 1+ bipedal edema Labs and Radiology: reviewed. Assessment and plan: Patient is a 68-year-old female with a PMHx of Metabolic syndrome, HTN, DLP, End stage COPD with O2 dependence (3-5 L), Diverticulosis, Tobacco abuse, Osteoporosis who presented to the ER with complaints of shortness of breath, associated with wheezing and cough. Patient w as admitted to the hospital service for COPD exacerbation and possibly aspiration pneumonia. The hospital course has been complicated by abdominal pain and distension and found to have large bowel obstruction with midsigmoid colon stricture and possibly ileus. She also had severe back pain with muscle spasms. Patient is not doing well and is not recovering after surgery. She continues to be in respiratory failure Metabolic encephalopathy due to hypoxia and general sickness. Acute on chronic hypoxic respiratory failure due to inadequate effort of breathing after abdominal surgery. Basilar ate lectasis which is not improving. on BIPAP, have not been able to be weaned. appreciate pulmonary recommendations. 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 Underwent colonic decompression and colostomy creation on 07/13/[address] White. s/p flexible sigmoidoscopy on 07/11/18 showed twisting vs stricture in mid sigmoid colon. Barium enema did not show any stricture. On Meropenem and vancomycin.ips Diet as per surgery. On PPN Diverticulosis with possible chronic diverticulitis on meropenem and vancomycin Acute COPD exacerbation; possibly 2/2 aspiration pneumonia will continue to taper steroids. advair, nebs, spiriva c/w incentive spirometry s/p Intractable back pain - likely 2/2 musculoskeletal etiology - likely with muscle spasms Patient did not want to pursue an MRI; risks and benefits have been discussed Urinary retention - possibly 2/[address] Metabolic syndrome HTN BP well controlled c/w Amlodipine with hold parameters. DLP stop Atorvastatin and ASA Tobacco abuse Quit smoking 20 years ago Osteoporosis Patient has been on Alendronate since 2012 DEXA 08/2015 Mood disorder / Anxiety / Insomnia c/w Trazodone when eating orally GI prophylaxis c/w Protonix DVT prophylaxis c/w heparin A-FIB/CHADSVASC A-FIB History Current/History of A-Fib/PAF?: No VS,Fishbone, I+O VS, Fishbone, I+O Laboratory Tests 07/18/18 05:37 Red Blood Count 2.85 L, Mean Corpuscular Volume 95.1, Mean Corpuscular Hemoglobin 30.9, Mean Corpuscular Hemoglobin Concent 32.5, Red Cell Distribution Width 14.5, Calcium Level 8.6 L, Aspartate Amino Transf (AST/SGOT) 60 H, Alanine Aminotransferase (ALT/SGPT) 171 H, Alkaline Phosphatase 67, Total Bilirubin 0.7, Total Protein 5.8 L, Albumin 2.3 L Vital Signs Date Time Temp Pulse Resp B/P (MAP) Pulse Ox O2 Delivery O2 Flow Rate FiO2 07/18/18 09:42 104 131/81 07/18/18 08:53 40 07/18/18 04:00 99.8 24 96 07/17/18 16:05 Nasal Cannula 5.0 I&O- Last 24 Hours up to 6 AM 07/18/18 06:00 Intake Total 2985 ml Output Total 3650 ml Balance -665 ml THOMAS SOLOMON MD July 18, 2018 10:39
[2018-07-18 12:00] VITALS: BP 144/80
[2018-07-18] MEDS: VANCOMYCIN HCL 1,000 MG, VIAL MATE ADAPTER 1 EACH in D5W 250 ML IV SCH ×4 (12:15)
[2018-07-18] MEDS ORDERED: ONDANSETRON 4MG/2ML VIAL (J2405) IV PRN (13:30)
--- NOTE | 2018-07-18 13:42 | IPNPDOC ---
Text Note Date of Service The patient was seen on 07/18/18. NOTE No acute events overnight. She is back on the Bipap but is less arousable am. Not tolerating being off of the BIPAP for more than a couple hours. The family has requested Hospice consult since she is not happy staying on the BIPAP. Minimal output from the colostomy, and it is still maroon. 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 POD#5 s/p dx lap with right colostomy P) flq diet advance to regular when ostomy has some output monitor ostomy output OOB to chair PT ambulate abx will follow prognosis poor Lamin Mcbride DO A-FIB/CHADSVASC A-FIB History Current/History of A-Fib/PAF?: No VS,Fishbone, I+O VS, Fishbone, I+O Laboratory Tests 07/18/18 05:37 Red Blood Count 2.85 L, Mean Corpuscular Volume 95.1, Mean Corpuscular Hemoglobin 30.9, Mean Corpuscular Hemoglobin Concent 32.5, Red Cell Distribution Width 14.5, Calcium Level 8.6 L, Aspartate Amino Transf (AST/SGOT) 60 H, Alanine Aminotransferase (ALT/SGPT) 171 H, Alkaline Phosphatase 67, Total Bilirubin 0.7, Total Protein 5.8 L, Albumin 2.3 L Vital Signs Date Time Temp Pulse Resp B/P (MAP) Pulse Ox O2 Delivery O2 Flow Rate FiO2 07/18/18 12:00 4.0 07/18/18 09:42 104 131/81 07/18/18 08:53 40 07/18/18 04:00 99.8 24 96 07/17/18 16:05 Nasal Cannula I&O- Last 24 Hours up to 6 AM 07/18/18 06:00 Intake Total 2985 ml Output Total 3650 ml Balance -665 ml KARTIK MCBRIDE DO July 18, 2018 13:42
--- NOTE | 2018-07-18 16:13 | REP ---
PICC line insertion under ultrasound guidance. The procedure was performed by THIAGO Rivero, under the direct supervision of Dr. Bravo. The risks and benefits of the procedure were explained to the patient's family and informed consent was obtained the verbally and written. Directly prior to the start of the procedure, a formal timeout was completed in the procedure room. The the patient currently has a midline catheter in the right basilic vein. The skin was prepped and draped in the sterile fashion. A 0.018 guidewire was inserted into the midline catheter and advanced to the SVC, this was confirmed by portable chest x-ray. The midline catheter was removed over the wire and a 5.5 Peruvian dilator and peel-away sheath was inserted over the guidewire. A 5.5 [place]uvian double lumen catheter was cut to the length of 42 cm. The dilator was removed and the catheter was inserted over the guide wire with the tip ending in the SVC, this was again confirmed by a portable chest x-ray . The peel-away sheath was removed and the catheter was flushed with heparinized saline as per hospital protocol. The catheter was affixed to the skin and a sterile dressing was applied. The patient tolerated the procedure well and there were no immediate complications. Reviewed by THIAGO Ashley 07/18/2018 08:25 A Electronically Signed by Otis Bravo MD 07/18/2018 04:04 P
--- NOTE | 2018-07-18 16:32 | CCN ---
DATE: 07/18/2018 The patient was seen, examined this morning during bedside rounds. Overnight the patient had a temperature of 100.5. During the evening she has been able to be weaned off of BiPap to nasal cannula for 2-3 hours at a time, however she will then to be noticed to have increasing work of breathing, lethargy and desaturation on her nasal cannula and had to be placed back on BiPap. This morning she was on BiPap and she is awake and alert. She denies any current complaints. She does have an occasional cough but it has not been producing mucus. PHYSICAL EXAMINATION: T max 100.5, T-current 98.7, pulse was 100, respiratory rate 22, blood pressure 131/81, O2 sat 96% on BiPap at 40% FIO2 in 2.9 liters out 4.1 liters net negative 1.1 liters. General: The patient is obese female. She is sitting in bed in no acute in no acute distress. Is wearing BiPap and awake and alert and answering questions. HEENT: Normocephalic, atraumatic. Mucous membranes are moist. Neck: Supple. No JVD appreciated. No palpable cervical adenopathy. Cardiovascular: Regular rate and rhythm. Normal S1-S2. No murmurs appreciated. Lungs: There are diminished breath sounds bilaterally with inspiratory squeaks and rhonchi. Abdomen is obese. The patient has a right colostomy in place and healing surgical incision in the midline as well as a laparoscopic incision. Extremities: There is no lower extremity edema noted bilaterally. LABORATORY DATA: WBC 25.3, hemoglobin 8.8, platelets 246. Chemistry 137, potassium 4.3, chloride 95, bicarb 40, BUN 23, creatinine 0.41, glucose is 165, AST 60, ALT 171 and 2.3. ASSESSMENT/PLAN: The patient is a 68-year-old female with a past, history of COPD with chronic hypoxemic respiratory failure on nasal cannula oxygen supplementation, hypertension, hyperlipidemia and osteoporosis who presented initially with acute COPD exacerbation with possible aspiration pneumonia. Her hospital course was complicated with abdominal pain and distension and she was found have a colonic ileus or possible Ayo syndrome. The patient had initially underwent flexible a flexible sigmoidoscopy and then had exploratory laparotomy on 07/13/2018 and is status post right colostomy. With a exploratory laparotomy on 07/13, she was found to have a serosal tear and is now status post right colostomy. Postoperatively the patient had acute on chronic hypoxemic respiratory failure requiring BiPap. She continues to require BiPap during the day as she will have episodes where she tires out to the becomes more lethargic and desaturates. This morning the patient had expressed to her family at bedside that she was tired and did not want to continue using the BiPap. She previously has been DNR/DNI for her goals of care and she was agreeable however to a trial of BiPap. She has continued to need BiPap for her respiratory support an oxygenation and she has now determined that she would no longer wished to continue with it. The family had a discussion and wished to make her full comfort care measures at this time. Hospice has already been consulted as the patient had previously expressed the wish for home hospice and to at home. However given her pulmonary status, the family would like to keep her for inpatient hospice at this time. Will update her MOLST form to reflect the wishes of the patient's family and her healthcare proxy that she is now to be full comfort care measures and to discontinue medications that are not necessary for comfort. Will start to morphine as needed for shortness of breath and pain and Ativan as needed for agitation. We will also start a scopolamine patch as needed for increased for secretions and Zofran as needed for nausea. Can continue with nasal cannula oxygen supplementation for comfort. Code status DNR/DNI. Total critical care time spent not including any procedures approximately 35 minutes. Please do not hesitate to call if any further questions or concerns.
[2018-07-18] MEDS ORDERED: ACETAMINOPHEN TAB 650MG DOSE (2X325MG) PO ONE (21:15)
[2018-07-19] MEDS: LORazepam 2 MG/ML VIAL (J2060) IV PRN ×2 (00:50→03:33)
[2018-07-19] MEDS: SODIUM CHLORIDE 0.9% INJ 10 ML SYR IV PRN ×2 (00:50→03:33)
[2018-07-19] MEDS: SODIUM CHLORIDE 0.9% INJ 10 ML SYR IV SCH ×3 (05:36→16:03)
[2018-07-19] MEDS ORDERED: HYOS125TA PO (08:01)
[2018-07-19] MEDS ORDERED: LORA0.5T11 PO (08:01)
[2018-07-19] MEDS ORDERED: MORP20SO3 PO (08:01)
--- NOTE | 2018-07-19 11:48 | IPNPDOC ---
Text Note Date of Service The patient was seen on 07/19/18. NOTE Subjective: Patient is comfortable on nasal canula. Needing intermittent ativan for anxiety. She has not been using any morphine as family is concerned that it will suppress her breathing. I did explain that she just had surgery so she definitely still has pain in her abdomen from that though she may not be able to express it so she may need intermittent morphine for the pain and to keep her comfortable. Roxanol and iv morphine has been ordered to be used if needed. Objective: Vitals (See below) General: lying in bed, awake in mild distress HEENT: NC, AT, anicteric eyes. CVS: +S1S2, no rub murmur or gallop Lungs: bilateral vesicular breath sounds , bibasilar coarse breath sounds with crackles Abdomen: Abdomen again is noted to be soft, diffuse tenderness. Has colostomy in place with gas in it. Hypoactive bowel sounds. Extremities: Lower extremities have 1+ bipedal edema Assessment and plan: Patient is a 68-year-old female with a PMHx of Metabolic syndrome, HTN, DLP, End stage COPD with O2 dependence (3-5 L), Diverticulosis, Tobacco abuse, Osteoporosis who presented to the ER with complaints of shortness of breath, associated with wheezing and cough. Patient was admitted to the hospital service for COPD exacerbation and possibly aspiration pneumonia. The hospital course has been complicated by abdominal pain and distension and found to have large bowel obstruction with midsigmoid colon stricture and possibly ileus. She also had severe back pain with muscle spasms. Patient is not doing well and is not recovering after surgery. She continued to be in respiratory failure needing BIPAP support 24 hours a day. She did not want the BIPAP any more and as per family she never wanted to be kept alive on machines. According to her wishes the family opted her to be comfort measures only. She had wanted to go home and family wanted her to go home with hospice. However after discussion with hospice it was felt that she would not survive the transfers. SO it was decided that the patint would remain in the hospital under YOUTH PROBATION OFFICER measures. YOU[employer]OBATION OFFICER continue ativan, morphine, scopolamine continue oxygen support. Metabolic encephalopathy due to hypoxia and general sickness. Acute on chronic hypoxic respiratory failure due to inadequate effort of breathing after abdominal surgery. Basilar atelectasis. continue oxygen supplementation, Ativan and Morphine for SOB and Anxiety. 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 No recovery of colonic functions. s/p COPD exacerbation; possibly 2/2 aspiration pneumonia Urinary retention - possibly 2/[address] Metabolic syndrome HTN DLP Tobacco abuse Quit smoking 20 years ago Osteoporosis Mood disorder / Anxiety / Insomnia ativan as needed. A-FIB/CHADSVASC A-FIB History Current/History of A-Fib/PAF?: No VS,Fishbone, I+O VS, Fishbone, I+O Vital Signs Date Time Temp Pulse Resp B/P (MAP) Pulse Ox O2 Delivery O2 Flow Rate FiO2 07/18/18 22:00 4.0 07/18/18 12:00 99.2 108 24 144/80 (101) 91 07/18/18 08:53 40 07/17/18 16:05 Nasal Cannula I&O- Last 24 Hours up to 6 AM 07/19/18 06:00 Intake Total 1140 ml Output Total 2950 ml Balance -1810 ml THOMAS SOLOMON MD July 19, 2018 11:47
[2018-07-19] MEDS: MORPHINE 4 MG/ML 1ML VIAL/SYRINGE (J2270) IV PRN (15:49)
[2018-07-20] MEDS: LORazepam 2 MG/ML VIAL (J2060) IV PRN ×2 (01:09→06:21)
[2018-07-20] MEDS: SODIUM CHLORIDE 0.9% INJ 10 ML SYR IV PRN ×2 (01:10→04:14)
[2018-07-20] MEDS: MORPHINE 4 MG/ML 1ML VIAL/SYRINGE (J2270) IV PRN ×2 (04:13→14:48)
[2018-07-20] MEDS: SODIUM CHLORIDE 0.9% INJ 10 ML SYR IV SCH ×2 (06:39→16:26)
--- NOTE | 2018-07-20 11:29 | IPNPDOC ---
Text Note Date of Service The patient was seen on 07/20/18. NOTE Subjective: Patient is comfortable on nasal canula. Needing intermittent ativan for anxiety and morphine for pain. She was confused last night but lethargic now. NO oral intake. Had a long discussion with 4 family members present in the room assuring them that the patient is comfortable. Answered all their questions regarding life expectancy how the end is going to happen. Did explain that she will probably just slowly become more somnolent then comatose and then pass away naturally without suffering. Objective: Vitals (See below) General: lying in bed, awake in mild distress HEENT: NC, AT, anicteric eyes. CVS: +S1S2, no rub murmur or gallop Lungs: bilateral vesicular breath sounds , bibasilar coarse breath sounds with crackles Abdomen: Abdomen again is noted to be soft, diffuse tenderness. Has colostomy in place with gas in it. Hypoactive bowel sounds. Extremities: Lower extremities have 1+ bipedal edema Assessment and plan: Patient is a 68-year-old female with a PMHx of Metabolic syndrome, HTN, DLP, End stage COPD with O2 dependence (3-5 L), Diverticulosis, Tobacco abuse, Osteoporosis who presented to the ER with compla ints of shortness of breath, associated with wheezing and cough. Patient was admitted to the hospital service for COPD exacerbation and possibly aspiration pneumonia. The hospital course has been complicated by abdominal pain and distension and found to have large bowel obstruction with midsigmoid colon stricture and possibly ileus. She also had severe back pain with muscle spasms. Patient is not doing well and is not recovering after surgery. She continued to be in respiratory failure needing BIPAP support 24 hours a day. She did not want the BIPAP any more and as per family she never wanted to be kept alive on machines. According to her wishes the family opted her to be comfort measures only. She had wanted to go home and family wanted her to go home with hospice. However after discussion with hospice it was felt that she would not survive the transfers. SO it was decided that the patint would remain in the hospital under TUGBOAT MATE measures. TUGBOAT MATE continue ativan, morphine, scopolamine continue oxygen support. Metabolic encephalopathy due to hypoxia and general sickness. Acute on chronic hypoxic respiratory failure due to inadequate effort of breathing after abdominal surgery. Basilar atelectasis. continue oxygen supplementation, Ativan and Morphine for SOB and Anxiety. [place]'s syndrome colonic ileus with massive distension with serosal tear Underwent colonic decompression and colostomy creation on 07/13/[address] White. without any recovery of colonic functions. s/p COPD exacerbation; possibly 2/2 aspiration pneumonia Urinary retention - possibly 2/[address] Metabolic syndrome HTN DLP Tobacco abuse Quit smoking 20 years ago Osteoporosis Mood disorder / Anxiety / Insomnia ativan as needed. A-FIB/CHADSVASC A-FIB History Current/History of A-Fib/PAF?: No VS,Fishbone, I+O VS, Fishbone, I+O Vital Signs Date Time Temp Pulse Resp B/P (MAP) Pulse Ox O2 Delivery O2 Flow Rate FiO2 07/19/18 20:45 6.0 07/19/18 15:59 20 07/18/18 12:00 99.2 108 144/80 (101) 91 07/18/18 08:53 40 07/17/18 16:05 Nasal Cannula I&O- Last 24 Hours up to 6 AM 07/20/18 06:00 Intake Total 0 ml Output Total 1300 ml Balance -1300 ml THOMAS SOLOMON MD July 20, 2018 11:29
[2018-07-20] MEDS: SCOPOLAMINE 1MG TRANSDERMAL PATCH TOP PRN (18:16)
[2018-07-20] MEDS: MORPHINE 10MG/0.5ML ORAL CONCENTRATE SOLUTION U/D SL PRN (21:35)
[2018-07-21] MEDS: SODIUM CHLORIDE 0.9% INJ 10 ML SYR IV PRN (00:22)
[2018-07-21] MEDS: LORazepam 2 MG/ML VIAL (J2060) IV PRN (00:22)
[2018-07-21] MEDS: MORPHINE 10MG/0.5ML ORAL CONCENTRATE SOLUTION U/D SL PRN (02:15)
[2018-07-21] MEDS: SODIUM CHLORIDE 0.9% INJ 10 ML SYR IV SCH ×2 (08:04→15:59)
[2018-07-21] MEDS: MORPHINE 4 MG/ML 1ML VIAL/SYRINGE (J2270) IV PRN ×5 (10:24→23:24)
--- NOTE | 2018-07-21 10:44 | IPNPDOC ---
Text Note Date of Service The patient was seen on 07/21/18. NOTE Subjective: Patient is comfortable on nasal canula. Needing intermittent ativan for anxiety and morphine for pain. She was confused , agitated and fighting last night but now calm. Patient is awake and speaking a few words and did say yes to water. Able to swallow sips of water with spoon. Did indicate that her abdomen still hurts. Says her breathing was ok. Objective: Vitals (See below) General: lying in bed, awake with no acute distress. HEENT: NC, AT, anicteric eyes. CVS: +S1S2, no rub murmur or gallop Lungs: bilateral vesicular breath sounds , bibasilar coarse breath sounds with crackles Abdomen: Abdomen again is noted to be soft, diffuse tenderness. Has colostomy in place with gas in it. bowel sounds heard. Extremities: No edema Assessment and plan: Patient is a 68-year-old female with a PMHx of Metabolic syndrome, HTN, DLP, End stage COPD with O2 dependence (3-5 L), Diverticulosis, Tobacco abuse, Osteoporosis who presented to the ER with complaints of shortness of breath, associated with wheezing and cough. Patient was admitted to the hospital service for COPD exacerbation and possibly aspiration pneumonia. The hospital course has been complicated by abdominal pain and distension and found to have large bowel obstruction with midsigmoid colon stricture and possibly ileus. She also had severe back pain with muscle spasms. Patient is not doing well and is not recovering after surgery. She continued to be in respiratory failure needing BIPAP support 24 hours a day. She did not want the BIPAP any more and as per family she never wanted to be kept alive on machines. According to her wishes the family opted her to be comfort measures only. She had wanted to go home and family wanted her to go home with hospice. However after discussion with hospice it was felt that she would not survive the transfers. SO it was decided that the patint would remain in the hospital under PRODUCTION SUPPORT CONSULTANT measures. PRODUCTION SUPPORT CONSULTANT continue ativan, morphine, scopolamine continue oxygen support. Metabolic encephalopathy due to hypoxia and general sickness. Acute on chronic hypoxic respiratory failure due to inadequate effort of breathing after abdominal surgery. Basilar atelectasis. continue oxygen supplementation, Ativan and Morphine for SOB and Anxiety. 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 s/p COPD exacerbation; possibly 2/2 aspiration pneumonia Urinary retention - possibly 2/[address] Metabolic syndrome HTN DLP Tobacco abuse Quit smoking 20 years ago Osteoporosis Mood disorder / Anxiety / Insomnia ativan as needed. A-FIB/CHADSVASC A-FIB History Current/History of A-Fib/PAF?: No VS,Fishbone, I+O VS, Fishbone, I+O Vital Signs Date Time Temp Pulse Resp B/P (MAP) Pulse Ox O2 Delivery O2 Flow Rate FiO2 07/20/18 21:30 6.0 07/19/18 15:59 20 07/18/18 12:00 99.2 108 144/80 (101) 91 07/18/18 08:53 40 07/17/18 16:05 Nasal Cannula I&O- Last 24 Hours up to 6 AM 07/21/18 06:00 Intake Total 0 ml Output Total 350 ml Balance -350 ml THOMAS SOLOMON MD July 21, 2018 10:44
[2018-07-22] MEDS: MORPHINE 4 MG/ML 1ML VIAL/SYRINGE (J2270) IV PRN ×5 (05:03→22:06)
[2018-07-22] MEDS: SODIUM CHLORIDE 0.9% INJ 10 ML SYR IV SCH ×2 (05:04→18:00)
[2018-07-22] MEDS: SODIUM CHLORIDE 0.9% INJ 10 ML SYR IV PRN ×2 (05:04→22:07)
--- NOTE | 2018-07-22 12:34 | IPNPDOC ---
Text Note Date of Service The patient was seen on 07/22/18. NOTE Subjective: Patient is comfortable on nasal canula. Needing intermittent ativan for anxiety and morphine for pain. No agitation last night. This am sleeping comfortably Objective: Vitals (See below) General: lying in bed, awake with no acute distress. HEENT: NC, AT, anicteric eyes. CVS: +S1S2, no rub murmur or gallop Lungs: bilateral vesicular breath sounds , bibasilar coarse breath sounds with crackles Abdomen: Abdomen again is noted to be soft, diffuse tenderness. Has colostomy in place with gas in it. bowel sounds heard. Extremities: No edema Assessment and plan: Patient is a 68-year-old female with a PMHx of Metabolic syndrome, HTN, DLP, End stage COPD with O2 dependence (3-5 L), Diverticulosis, Tobacco abuse, Osteoporosis who presented to the ER with complaints of shortness of breath, associated with wheezing and cough. Patient was admitted to the hospital service for COPD exacerbation and possibly aspiration pneumonia. The hospital course has been complicated by abdominal pain and distension and found to have large bowel obstruction with midsigmoid colon stricture and possibly ileus. She also had severe back pain with muscle spasms. Patient is not doing well and is not recovering after surgery. She continued to be in respiratory failure needing BIPAP support 24 hours a day. She did not want the BIPAP any more and as per family she never wanted to be kept alive on [facility]. According to her wishes the family opted her to be comfort measures only. She had wanted to go home and family wanted her to go home with hospice. However after discussion with hospice it was felt that she would not survive the transfers. SO it was decided that the patient would remain in the hospital under CLARIFICATION OPERATOR measures. CLARIFICATION OPERATOR continue ativan, morphine, scopolamine continue oxygen support. Metabolic encephalopathy due to hypoxia and general sickness. Acute on chronic hypoxic respiratory failure due to inadequate effort of breathing after abdominal surgery. Basilar atelectasis. continue oxygen supplementation, Ativan and Morphine for SOB and Anxiety. 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 s/p COPD exacerbation; possibly 2/2 aspiration pneumonia Urinary retention - possibly 2/[address] Metabolic syndrome HTN DLP Tobacco abuse Quit smoking 20 years ago Osteoporosis Mood disorder / Anxiety / Insomnia ativan as needed. A-FIB/CHADSVASC A-FIB History Current/History of A-Fib/PAF?: No VS,Fishbone, I+O VS, Fishbone, I+O Vital Signs Date Time Temp Pulse Resp B/P (MAP) Pulse Ox O2 Delivery O2 Flow Rate FiO2 07/22/18 08:30 6.0 07/22/18 05:17 16 07/18/18 12:00 99.2 108 144/80 (101) 91 07/18/18 08:53 40 07/17/18 16:05 Nasal Cannula I&O- Last 24 Hours up to 6 AM 07/22/18 06:00 Intake Total 240 ml Output Total 975 ml Balance -735 ml THOMAS SOLOMON MD July 22, 2018 12:34
[2018-07-23] MEDS: SODIUM CHLORIDE 0.9% INJ 10 ML SYR IV SCH ×2 (06:00→17:31)
[2018-07-23] MEDS: MORPHINE 4 MG/ML 1ML VIAL/SYRINGE (J2270) IV PRN ×4 (09:36→23:25)
--- NOTE | 2018-07-23 13:08 | IPNPDOC ---
Text Note Date of Service The patient was seen on 07/23/18. NOTE Subjective: Patient is comfortable on nasal canula. Needing intermittent ativan for anxiety and morphine for pain. No agitation or discomfort. Thoough noted to be picking on the misha. Will remove the abdominal misha today. Objective: Vitals (See below) General: lying in bed, awake with no acute distress. HEENT: NC, AT, anicteric eyes. CVS: +S1S2, no rub murmur or gallop Lungs: bilateral vesicular breath sounds , bibasilar coarse breath sounds with crackles Abdomen: Abdomen again is noted to be soft, diffuse tenderness. Has colostomy in place with gas in it. bowel sounds heard. Extremities: No edema Assessment and plan: Patient is a 68-year-old female with a PMHx of Metabolic syndrome, HTN, DLP, End stage COPD with O2 dependence (3-5 L), Div erticulosis, Tobacco abuse, Osteoporosis who presented to the ER with complaints of shortness of breath, associated with wheezing and cough. Patient was admitted to the hospital service for COPD exacerbation and possibly aspiration pneumonia. The hospital course has been complicated by abdominal pain and distension and found to have large bowel obstruction with midsigmoid colon stricture and possibly ileus. She also had severe back pain with muscle spasms. Patient is not doing well and is not recovering after surgery. She continued to be in respiratory failure needing BIPAP support 24 hours a day. She did not want the BIPAP any more and as per family she never wanted to be kept alive on machines. According to her wishes the family opted her to be comfort measures only. She had wanted to go home and family wanted her to go home with hospice. However after discussion with hospice it was felt that she would not survive the transfers. SO it was decided that the patient would remain in the hospital under ICT SUPPORT ENGINEER measures. ICT SUPPORT ENGINEER continue ativan, morphine, scopolamine continue oxygen support. Metabolic encephalopathy due to hypoxia and general sickness. Acute on chronic hypoxic respiratory failure due to inadequate effort of breathing after abdominal surgery. Basilar atelectasis. continue oxygen supplementation, Ativan and Morphine for SOB and Anxiety. 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 s/p COPD exacerbation; possibly 2/2 aspiration pneumonia Urinary retention - possibly 2/[address] Metabolic syndrome HTN DLP Tobacco abuse Quit smoking 20 years ago Osteoporosis Mood disorder / Anxiety / Insomnia ativan as needed. A-FIB/CHADSVASC A-FIB History Current/History of A-Fib/PAF?: No VS,Fishbone, I+O VS, Fishbone, I+O Vital Signs Date Time Temp Pulse Resp B/P (MAP) Pulse Ox O2 Delivery O2 Flow Rate FiO2 07/23/18 08:00 6.0 07/22/18 22:27 15 07/18/18 12:00 99.2 108 144/80 (101) 91 07/18/18 08:53 40 07/17/18 16:05 Nasal Cannula I&O- Last 24 Hours up to 6 AM 07/23/18 06:00 Intake Total 0 ml Output Total 900 ml Balance -900 ml THOMAS SOLOMON MD July 23, 2018 13:08
[2018-07-23] MEDS: NYSTATIN 100,000 UNITS/GM TOPICAL PWD 15 GM TOP SCH ×2 (14:05→20:05)
[2018-07-23] MEDS: SCOPOLAMINE 1MG TRANSDERMAL PATCH TOP PRN (17:21)
[2018-07-23] MEDS: SODIUM CHLORIDE 0.9% INJ 10 ML SYR IV PRN (17:31)
[2018-07-23] MEDS: LORazepam 2 MG/ML VIAL (J2060) IV PRN (20:04)
[2018-07-24] MEDS: MORPHINE 4 MG/ML 1ML VIAL/SYRINGE (J2270) IV PRN (05:38)
[2018-07-24] MEDS: SODIUM CHLORIDE 0.9% INJ 10 ML SYR IV SCH ×2 (05:38→16:57)
[2018-07-24] MEDS ORDERED: MORPHINE SULF IN 0.9% NACL 100 MG in APPROPRIATE DILUENT 1 EA IV SCH ×2 (08:00)
[2018-07-24] MEDS ORDERED: EPIDURAL/PCA KEYS XX PRN (08:00)
[2018-07-24] MEDS: NYSTATIN 100,000 UNITS/GM TOPICAL PWD 15 GM TOP SCH ×2 (08:41→21:00)
--- NOTE | 2018-07-24 12:32 | IPNPDOC ---
Text Note Date of Service The patient was seen on 07/24/18. NOTE Subjective: Patient is comfortable on nasal canula. Wincing to pain and trying to remove my hands when i was palpating her abdomen However does not open her yes when called. Started on morphine gtt today as the patient was needing morphine every 2 hours Objective: General: lying in bed, deeply somnolent but responds to pain. HEENT: NC, AT, anicteric eyes. CVS: +S1S2, no rub murmur or gallop Lungs: bilateral coarse breath sounds with crackles possibly conducted sounds from the throat. Abdomen: Abdomen again is noted to be soft, diffuse tenderness. Has colostomy in place with gas in it. bowel sounds heard. Extremities: No edema Esquivel: with urine in it. Assessment and plan: Patient is a 68-year-old female with a PMHx of Metabolic syndrome, HTN, DLP, End stage COPD with O2 dependence (3-5 L), Diverticulosis, Tobacco abuse, Osteoporosis who presented to the ER with complaints of shortness of breath, associated with wheezing and cough. Patient was admitted to the hospital service for COPD exacerbation and possibly aspiration pneumonia. The hospital course has been complicated by abdominal pain and distension and found to have large bowel obstruction with midsigmoid colon stricture and possibly ileus. She also had severe back pain with muscle spasms. Patient is not doing well and is not recovering after surgery. She continued to be in respiratory failure needing BIPAP support 24 hours a day. She did not want the BIPAP any more and as per family she never wanted to be kept alive on machines. According to her wishes the family opted her to be comfort measures only. She had wanted to go home and family wanted her to go home with hospice. However after discussion with hospice it was felt that she would not survive the transfers. SO it was decided that the patient would remain in the hospital under IT SOFTWARE ENGINEER measures. IT SOFTWARE ENGINEER continue ativan, morphine, scopolamine continue oxygen support. Metabolic encephalopathy due to hypoxia and general sickness. Acute on chronic hypoxic respiratory failure due to inadequate effort of breathing after abdominal surgery. Basilar atelectasis. continue oxygen supplementation, Ativan and Morphine for SOB and Anxiety. [place]'s syndrome colonic ileus with massive distension with serosal tear Underwent colonic decompression and colostomy creation on 07/13/[address] White. s/p COPD exacerbation; possibly 2/2 aspiration pneumonia Urinary retention Esquivel in place Metabolic syndrome HTN DLP Tobacco abuse Quit smoking 20 years ago Osteoporosis Mood disorder / Anxiety / Insomnia ativan as needed. A-FIB/CHADSVASC A-FIB History Current/History of A-Fib/PAF?: No VS,Fishbone, I+O VS, Fishbone, I+O Vital Signs Date Time Temp Pulse Resp B/P (MAP) Pulse Ox O2 Delivery O2 Flow Rate FiO2 07/24/18 06:02 22 07/23/18 21:00 6.0 07/18/18 12:00 99.2 108 144/80 (101) 91 07/18/18 08:53 40 I&O- Last 24 Hours up to 6 AM 07/24/18 06:00 Intake Total 0 ml Output Total 950 ml Balance -950 ml THOMAS SOLOMON MD July 24, 2018 12:32
[2018-07-25] MEDS: SODIUM CHLORIDE 0.9% INJ 10 ML SYR IV SCH (06:00)
--- NOTE | 2018-07-27 00:43 | DS.PDOC ---
Discharge Summary General Date of Admission Jul 02, 2018 at 10:21 Date of Discharge 07/25/18 Discharge Summary PROCEDURES PERFORMED DURING STAY: Flexible sigmoidoscopy on 07/11/18 Laparoscopy, mini laparotomy with decompression of right colon, and creation of cecal colostomy in right upper quadrant on 07/13/18 ADMITTING DIAGNOSES: COPD exacerbation Aspiration Pneumonia DISCHARGE DIAGNOSES: Acute on Chronic respiratory failure with hypoxia due to inadequate effort of brathing after abdominal surgery and bibasal atelectasis Massive colonic distension or [place]'s syndrome with serosal tear of cecum s/p decompression and colostomy creation Metabolic encephalopathy COPD exacerbation Aspiration pneumonia h/o hypertension h/o Hyperlipidemia h/o mood disorder, anxiety COMPLICATIONS/CHIEF COMPLAINT: Copd With Acute Exacerbation. HISTORY OF PRESENT ILLNESS: See history and physical HOSPITAL COURSE: Patient is a 68-year-old female with a PMHx of Metabolic syndrome, HTN, DLP, End stage COPD with O2 dependence (3-5 L), Diverticulosis, Tobacco abuse, Osteoporosis who presented to the ER with complaints of shortness of breath, associated with wheezing and cough. Patient was admitted to the hospital service for COPD exacerbation and possibly aspiration pneumonia. The hospital course has been complicated by abdominal pain and distension and found to have severe colonic dilatation due to colonic ileus or Ayo,s syndrome. She also had severe back pain with muscle spasms. She did not respond to conservative measures with aggressive bowel regimen. Finally she underwent colonic decompression with colostomy creation. Patient did not do well even after surgery. Her colon did not recover promptly. Her respiratory status worsened after surgery. She continued to be in hypoxic respiratory failure re quiring BIPAP support 24 hours a day . She had inadequate effort of breathing without the BIPAP support , inadequate coughing so she developed basal atelectasis. She could not tolerate chest PT. She did not want the BIPAP any more and as per family she never wanted to be kept alive on machines. According to her wishes the family opted her to be comfort measures only. She had wanted to go home and family wanted her to go home with hospice. However after discussion with hospice it was felt that she would not survive the transfers. SO it was decided that the patient would remain in the hospital under GOVERNMENT CLERK measures. She was kept comfortable with morphine , ativan, scopolamine. Ultimately she on 07/25/18 Metabolic encephalopathy due to hypoxia and general sickness. Acute on chronic hypoxic respiratory failure due to inadequate effort of breathing after abdominal surgery. Basilar atelectasis. 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 s/p COPD exacerbation; possibly 2/2 aspiration pneumonia DISPOSITION: 20 . TIME SPENT ON DISCHARGE: Greater than 30 minutes. Vital Signs/I&Os Vital Signs Date Time Temp Pulse Resp B/P (MAP) Pulse Ox O2 Delivery O2 Flow Rate FiO2 07/24/18 06:02 22 07/23/18 21:00 6.0 Laboratory Data Labs 24H Laboratory Tests 2 07/26/18 11:52: Lab Scanned Report Transfusion Record Discharge Medications Scheduled Alendronate Sodium (Alendronate Sodium) 70 Mg Tab, 70 MG PO QWEEK, (Reported) SATURDAYS Amlodipine Besylate (Amlodipine Besylate) 5 Mg Tab, 5 MG PO DAILY, (Reported) Aspirin (Aspirin EC) 81 Mg Tabec, 81 MG PO QHS, (Reported) Atorvastatin Calcium (Atorvastatin Calcium) 10 Mg Tab, 10 MG PO DAILY, (Reported) Docusate Sodium (Docusate Sodium) 100 Mg Capsule, 100 MG PO QHS, (Reported) Fluticasone Propion/Salmeterol (Advair Hfa 230-21 Mcg Inhaler) 1 Aer Aer, 2 PUFF INH BID, (Reported) Trazodone HCl (Trazodone HCl) 50 Mg Tab, 50 MG PO QHS, (Reported) Umeclidinium [place] (Incruse Ellipta) 62.5 Mcg/Inh Inh, 1 PUFF INH DAILY, (Reported) Scheduled PRN Acetaminophen (Acetaminophen) 500 Mg Tab, 1,000 MG PO Q6H PRN for HEADACHE OR PAIN, (Reported) Albuterol Sulfate (Proair Hfa) 108 Mcg/Act Aer, 2 PUFF INH Q4H PRN for SHORTNESS OF BREATH, (Reported) Hyoscyamine Sulfate (Hyoscyamine Sulfate) 0.125 Mg Tab.subl, 0.125 MG PO Q4HP PRN for TERMINAL SECRETIONS Use sublingually if unable to swallow Ibuprofen (Ibuprofen) 200 Mg Tablet, 400 MG PO Q6H PRN for HEADACHE, (Reported) Ipratropium/Albuterol Sulfate (Iprat-Albut 0.5-3(2.5) mg/3 ml) 1 Gee Gee, 1 GEE INH QID PRN for SHORTNESS OF BREATH, (Reported) Lorazepam (Lorazepam) 0.5 Mg Tablet, 0.5 MG PO Q4HP PRN for ANXIETY/AGITATION Use sublingually if unable to swallow Morphine Sulfate (Morphine Sulfate) 100 Mg/5 Ml Solution, 0.25-1 ML PO Q2H PRN for PAIN OR DYSPNEA Use sublingually if unable to swallow Allergies Coded Allergies: No Known Allergies (Unverified , 06/05/18) THOMAS SOLOMON MD July 27, 2018 00:43
== END 2018-07-25 04:22 | disposition expired | DRG 981 ==
LOC: M ED 06:54 → M ED INP 10:21 → M MS5PR 16:30 → M PCU 07-13 16:42 → M ICU 07-14 20:14 → M MSPAV 07-18 15:00
PROVIDERS: ADMIT Internal Medicine; ATTEND Internal Medicine Nephrology
PROC: 0DJD8ZZ Inspection of Lower Intestinal Tract, Via Natural or Artificial Opening Endoscopic (ICD-10-PCS; 2018-07-11)
PROC: 02HV33Z Insertion of Infusion Device into Superior Vena Cava, Percutaneous Approach (ICD-10-PCS; 2018-07-11)
PROC: 0D7E8ZZ Dilation of Large Intestine, Via Natural or Artificial Opening Endoscopic (ICD-10-PCS; 2018-07-13)
PROC: 0D1 Gastrointestinal System, Bypass (ICD-10-PCS; principal; 2018-07-13 11:37)
PROC: 30233N1 Transfusion of Nonautologous Red Blood Cells into Peripheral Vein, Percutaneous Approach (ICD-10-PCS; 2018-07-16)
PROC: 02HV33Z Insertion of Infusion Device into Superior Vena Cava, Percutaneous Approach (ICD-10-PCS; 2018-07-17)
DX: J44.1 Chronic obstructive pulmonary disease with (acute) exacerbation (principal); J96.21 Acute and chronic respiratory failure with hypoxia; J69.0 Pneumonitis due to inhalation of food and vomit; G93.41 Metabolic encephalopathy; N17.9 Acute kidney failure, unspecified; K56.699 Other intestinal obstruction unspecified as to partial versus complete obstruction; E78.2 Mixed hyperlipidemia; I10 Essential (primary) hypertension; F41.9 Anxiety disorder, unspecified; Z99.81 Dependence on supplemental oxygen; K57.30 Diverticulosis of large intestine without perforation or abscess without bleeding; Z87.891 Personal history of nicotine dependence; M81.0 Age-related osteoporosis without current pathological fracture; Z51.5 Encounter for palliative care; Z79.899 Other long term (current) drug therapy; F39 Unspecified mood [affective] disorder; M54.5 Low back pain; M62.830 Muscle spasm of back; D72.829 Elevated white blood cell count, unspecified; R33.9 Retention of urine, unspecified; Z66 Do not resuscitate; Z79.82 Long term (current) use of aspirin